=== PATIENT | female | born 1970 | race Caucasian/White ===

== ENCOUNTER 2016-12-28 13:36 | Emergency (ER) | payer OTHER ==
[2016-12-28] MEDS ORDERED: SODIUM CHLORIDE 0.9% 1,000 ML IV ONE (14:34)
--- NOTE | 2016-12-28 14:42 | ED ---
Alcohol HPI - General Chief Complaint: Alcohol Stated Complaint: Alcohol Withdraw Time Seen by Provider: 12/28/16 14:17 Source: patient, RN notes reviewed Mode of arrival: ambulatory Limitations: no limitations - History of Present Illness Initial Comments: Patient is a 46-year-old female presents to the emergency room for evaluation of alcoholism. Patient's sister is present with patient. Patient is an alcoholic. Patient's sister states that patient was at [facility] over the past few weeks. Patient's sister states that patient fell multiple times at [facility] so she was sent to [facility]. Patient's sister states that patient was admitted there for low hemoglobin. Patient's sister states after discharge they went to sent her back to [facility] and they refuse her due to "too much of a health risk". Patient's sister states that she wants patient admitted here for alcohol withdrawal treatment. Patient's sister states that patient did sneak a few beers from them last night and drank them. patient denies abdominal pain, nausea, vomiting, headache, dizziness. - Related Data Home Medications Medication Instructions Recorded Confirmed Azithromycin [Zithromax Z-pack] See Taper PO DAILY 12/28/16 12/28/16 Ferrous Sulfate [Feosol] 325 mg PO DIRECTED 12/28/16 12/28/16 Folic Acid 1 mg PO DAILY 12/28/16 12/28/16 Pantoprazole Sodium [Protonix] 40 mg PO DAILY 12/28/16 12/28/16 chlordiazePOXIDE HCl [Librium] 25 mg PO DIRECTED 12/28/16 12/28/16 predniSONE 10 mg PO DIRECTED 12/28/16 12/28/16 Previous Rx's Medication Instructions Recorded LORazepam [Ativan] 1 mg PO Q6HR PRN 10 Days 12/28/16 Ondansetron Odt [Zofran Odt] 4 mg PO Q8HR PRN #12 tab 12/28/16 Allergies Allergy/AdvReac Type Severity Reaction Status Date / Time No Known Allergies Allergy Verified 12/28/16 14:35 Review of Systems ROS Statement: Those systems with pertinent positive or pertinent negative responses have been documented in the HPI. ROS Other: All systems not noted in ROS Statement are negative. Past Medical History Past Medical History: Thyroid Disorder Additional Past Medical History / Comment(s): ETOH abuse, anemia History of Any Multi-Drug Resistant Organisms: None Reported Past Surgical History: Section, Hernia Repair Additional Past Surgical History / Comment(s): hand Past Psychological History: Depression Smoking Status: Current every day smoker Past Alcohol Use History: Abuse Past Drug Use History: None Reported General Exam - General Exam Comments Initial Comments: sitting in exam room, no distress. Limitations: no limitations General appearance: alert, in no apparent distress Head exam: Present: atraumatic, normocephalic, normal inspection Eye exam: Present: normal appearance ENT exam: Present: normal exam Neck exam: Present: normal inspection Respiratory exam: Present: normal lung sounds bilaterally. Absent: respiratory distress Cardiovascular Exam: Present: regular rate, normal rhythm, normal heart sounds GI/Abdominal exam: Present: soft, normal bowel sounds. Absent: distended, tenderness, guarding, rebound, rigid Extremities exam: Present: normal inspection Back exam: Present: normal inspection Neurological exam: Present: alert, oriented X3, CN II-XII intact, normal gait Psychiatric exam: Present: normal affect, normal mood Skin exam: Present: warm, dry, intact, normal color. Absent: rash Course Vital Signs 12/28/16 12/28/16 13:59 16:50 Temperature 98.1 F 98 F Pulse Rate 98 83 Respiratory 18 15 Rate Blood Pressure 118/79 129/66 O2 Sat by Pulse 100 100 Oximetry Medical Decision Making - Medical Decision Making Patient is a 46-year-old female presents emergency room for alcohol withdrawal treatment. Patient was dismissed from [facility] 222 much of a health risk since she was just admitted at [facility] for low hemoglobin. Labs are drawn. Hemoglobin at 9.8. Other labs showed no concerning findings. Discussed with patient and her sister that we do not admit for alcohol detox. Patient be sent home with [facility] and [facility]. Patient given medical clearance to go back to [facility]. Return parameters discussed. Case discussed with Dr. Berger. - Lab Data Result diagrams: 12/28/16 15:14 12/28/16 15:14 Lab Results 12/28/16 12/28/16 12/28/16 Range/Units 15:14 15:14 15:14 WBC 7.6 (3.8-10.6) k/uL RBC 3.81 (3.80-5.40) m/uL Hgb 9.8 L (11.4-16.0) gm/dL Hct 34.1 (34.0-46.0) % MCV 89.5 (80.0-100.0) fL MCH 25.8 (25.0-35.0) pg MCHC 28.8 L (31.0-37.0) g/dL RDW 20.8 H (11.5-15.5) % Plt Count 319 (150-450) k/uL Neutrophils % (Manual) 87.0 % Lymphocytes % (Manual) 11.0 % Monocytes % (Manual) 2.0 % Neutrophils # (Manual) 6.6 (1.3-7.7) k/uL Lymphocytes # (Manual) 0.8 L (1.0-4.8) k/uL Monocytes # (Manual) 0.2 (0-1.0) k/uL Nucleated RBCs 0 (0-0) /100 WBC Manual Slide Review Performed Polychromasia Present Hypochromasia Marked Poikilocytosis Slight Anisocytosis Moderate Target Cells Present PT 10.1 (9.0-12.0) sec INR 1.0 (<1.1) Sodium 141 (137-145) mmol/L Potassium 4.1 (3.5-5.1) mmol/L Chloride 109 H (98-107) mmol/L Carbon Dioxide 26 (22-30) mmol/L Anion Gap 6 mmol/L BUN 6 L (7-17) mg/dL Creatinine 0.48 L (0.52-1.04) mg/dL Est GFR (MDRD) Af Amer >60 (>60 ml/min/1.73 sqM) Est GFR (MDRD) Non-Af >60 (>60 ml/min/1.73 sqM) Glucose 113 H (74-99) mg/dL Calcium 9.5 (8.4-10.2) mg/dL Magnesium 2.0 (1.6-2.3) mg/dL Total Bilirubin 0.5 (0.2-1.3) mg/dL AST 36 (14-36) U/L ALT 29 (9-52) U/L Alkaline Phosphatase 80 (38-126) U/L Total Protein 7.1 (6.3-8.2) g/dL Albumin 3.2 L (3.5-5.0) g/dL Amylase 54 (30-110) U/L Lipase 146 (23-300) U/L Serum Alcohol <10 mg/dL Disposition Clinical Impression: Alcohol withdrawal Disposition: HOME SELF-CARE Condition: Good Instructions: Alcohol Withdrawal (ED) Additional Instructions: Take medications as needed. Please follow-up with [facility]. Refrain from drinking alcohol. If any new symptom arises or symptoms worsen, return to ER as soon as possible. Prescriptions: LORazepam [Ativan] 1 mg PO Q6HR PRN 10 Days PRN Reason: Alcohol Withdrawal Ondansetron Odt [Zofran Odt] 4 mg PO Q8HR PRN #12 tab PRN Reason: Nausea Referrals: None,Stated [Primary Care Provider] - 1-2 days Time of Disposition: 16:31
[2016-12-28 15:30] LABS: Anisocytosis Moderate; CHCM 29.1; HCT 34.1 % (34.0-46.0); HDW 3.62; HGB 9.8 gm/dL (11.4-16.0); Hypochromasia Marked; MCH 25.8 pg (25.0-35.0); MCHC 28.8 g/dL (31.0-37.0); MCV 89.5 fL (80.0-100.0); Mean Platelet Volume 8.2; Poikilocytosis Slight; RBC 3.81 m/uL (3.80-5.40); RDW 20.8 % (11.5-15.5); WBC 7.6 k/uL (3.8-10.6); WBC (Perox) 7.27
[2016-12-28 15:33] LABS: Prothrombin Time 10.1 sec (9.0-12.0)
[2016-12-28 15:43] LABS: ALT 29 U/L (9-52); AST 36 U/L (14-36); Alcohol <10 mg/dL; Alkaline Phosphatase 80 U/L (38-126); Amylase 54 U/L (30-110); Anion Gap 6 mmol/L; Blood Urea Nitrogen 6 mg/dL (7-17); Calcium 9.5 mg/dL (8.4-10.2); Carbon Dioxide 26 mmol/L (22-30); Chloride 109 mmol/L (98-107); Glucose 113 mg/dL (74-99); Non-African American GFR(MDRD) >60 (>60 ml/min/1.73 sqM); Potassium 4.1 mmol/L (3.5-5.1); Sodium 141 mmol/L (137-145); Total Bilirubin 0.5 mg/dL (0.2-1.3); Total Protein 7.1 g/dL (6.3-8.2)
[2016-12-28 15:58] LABS: Add Differential Manual Differential
[2016-12-28 15:59] LABS: Manual Review Performed
[2016-12-28 16:02] LABS: Nucleated Red Blood Cells 0 /100 WBC (0-0); Polychromasia Present; Target Cells Present; Total Cells Counted 100
[2016-12-28 16:52] VITALS: BP 129/66; PULSE 83; RESP 15; TEMP 98
== END 2016-12-28 16:50 | disposition home or self-care (01) ==
LOC: EC 13:36
DX: F10.230 Alcohol dependence with withdrawal, uncomplicated (principal); D64.9 Anemia, unspecified; F17.200 Nicotine dependence, unspecified, uncomplicated; Y90.0 Blood alcohol level of less than 20 mg/100 ml; Z79.52 Long term (current) use of systemic steroids; Z79.899 Other long term (current) drug therapy
CPT/HCPCS: 36415; 80053; 80320; 82150; 83690; 83735; 85025; 85610; 96360; 99284

== ENCOUNTER → 2019-06-29 | Outpatient (CLI) | payer OTHER ==
--- NOTE | 2019-06-29 10:14 | XR ---
EXAMINATION TYPE: XR cervical spine comp DATE OF EXAM: 06/29/2019 COMPARISON: NONE HISTORY: Pain TECHNIQUE: Four views are submitted. FINDINGS: The odontoid is intact. There are no compression deformities. There is marked sclerosis of the osseo us structures suspicious for metastatic disease. Degenerative disc disease at C2-3 and C3-C4 there is a grade 1 anterolisthesis of C5 relative to C6 and C6 relative to C7. Hypertrophic facet changes are noted. IMPRESSION: 1. Multilevel degenerative disc disease with grade 1 anterolisthesis C6 relative to C7. 2. There is abnormal sclerosis involving the osseous structures correlate for history of malignancy a nd potential metastases. Recommend CT scan.
--- NOTE | 2019-06-29 10:15 | XR ---
EXAMINATION TYPE: XR Hip Bilateral Complete DATE OF EXAM: 06/29/2019 COMPARISON: NONE HISTORY: Pain TECHNIQUE: 2 views of each hip is submitted FINDINGS: There is no evidence of erosive change or acute fracture. There is diffuse abnormal appearance of the osseous structures. Hypertrophic change of the acetabulum is noted. There is a deformity of the righ t inferior pubic ramus suggestive of previous fracture. IMPRESSION: 1. Diffuse abnormal appearance of the osseous structures suggestive of widespread bony metastases. Th ere is a deformity involving the right inferior pubic ramus which could been the basis of a subacute to chronic fracture correlate clinically. CT scan chest abdomen pelvis recommended.
--- NOTE | 2019-06-29 10:16 | XR ---
EXAM TYPE: LUMBAR SPINE X RAY SERIES COMPARISON: NONE HISTORY: Pain TECHNIQUE: 4 views are submitted. FINDINGS: Diffuse abnormal appearance of all visualized osseous structures and a pattern highly suggestive of d iffuse metastasis. Multilevel degenerative disc disease seen and there are superior endplate compress ion fracture of L1 of indeterminate age. Report called to the referring clinician. IMPRESSION: 1. Diffuse abnormal bony appearance highly suggestive of metastasis. 2. At the level of L1 there is an age-indeterminate superior endplate compression fracture.
== END | disposition home or self-care (01) ==
LOC: RADXRMAIN 09:35
PROVIDERS: ATTEND Family Medicine
DX: M50.31 Other cervical disc degeneration, high cervical region (principal); M43.12 Spondylolisthesis, cervical region; M50.80 Other cervical disc disorders, unspecified cervical region; R93.7 Abnormal findings on diagnostic imaging of other parts of musculoskeletal system; M54.5 Low back pain; M25.552 Pain in left hip; M25.551 Pain in right hip
CPT/HCPCS: 72050; 72110; 73521

== ENCOUNTER → 2019-08-09 | Outpatient (CLI) | payer MEDICARE, OTHER ==
--- NOTE | 2019-08-09 10:14 | MM ---
Reason for exam: clinical finding. Baseline mammogram. History: Patient is postmenopausal. Family history of breast cancer in sister at age 60 and breast cancer in maternal cousin at age 50. Physical Findings: Nurse Summary: nodule in the left breast at 5 o'clock (nurse emily). MG Diagnostic Mammo w CAD NOEL Bilateral CC and MLO view(s) were taken. XCCL view(s) were taken of the left breast. The breast tissue is heterogeneously dense. This may lower the sensitivity of mammography. Gross deformity of the right breast with shrunken size and diffuse increased densities. Bilateral papable markers. These results were verbally communicated with the patient and result sheet given to the patient on 08/09/19. ASSESSMENT: Incomplete: need additional imaging evaluation, BI-RAD 0 RECOMMENDATION: Ultrasound of both breasts.
--- NOTE | 2019-08-09 10:20 | USB ---
Reason for exam: additional evaluation requested from abnormal screening. History: Patient is postmenopausal. Family history of breast cancer in sister at age 60 and breast cancer in maternal cousin at age 50. US Breast BILAT Right complete breast ultrasound includes all four quadrants, the retroareolar region and axilla. Finding demonstrates 17 x 10 x 37mm irregular, solid, hypoechoic, vascular lesion at 9 o'clock, biopsy recommended and a 10mm lymph node at the axilla tail BB, biopsy recommended. Left complete breast ultrasound includes all four quadrants, the retroareolar region and axilla. Finding demonstrates a 6mm lymph node at the axilla tail BB, biopsy recommended and a 15 x 12 x 33mm lobular, solid, hypoechoic, vascular lesion at 5 o'clock BB centered in the rib, suggestive of osseous metastases. These results were verbally communicated with the patient and result sheet given to the patient on 08/09/19. ASSESSMENT: Highly suggestive of malignancy, BI-RAD 5 RECOMMENDATION: Surgical consultation and ultrasound core biopsy of both breasts. (3 site biopsy, right 9 o'clock and axilla, left axilla) (postential osseous metastatic disease) Called Dr. Sotelo's office with mammographic findings and has scheduled an appointment for the patient for 08/26/18 at 7:[address] Bishop. Biopsy scheduled for 09/01/18 at 12:20. PRELIMINARY REPORT CALLED AND FAXED TO DR. BISHOP ON 08/09/19.
== END ==
LOC: RADMAMWWP 07:14
PROVIDERS: ATTEND Internal Medicine
DX: N64.4 Mastodynia (principal); N63.10 Unspecified lump in the right breast, unspecified quadrant; N63.20 Unspecified lump in the left breast, unspecified quadrant
CPT/HCPCS: 77066

== ENCOUNTER → 2019-08-26 | Outpatient (CLI) | payer OTHER ==
[2019-08-26 08:08] VITALS: BP 177/100; PULSE 79; RESP 16; TEMP 97.3
--- NOTE | 2019-08-26 08:51 | P.GSHP ---
History of Present Illness H&P Date: 08/26/19 Chief Complaint: mass right breast Leslie is a 48-year-old white female seen in consultation at the request of Dr. Sotelo for a right breast abnormality. She states that several years ago she fell from a palate and had an injury to her right breast. Since that time she is de veloped increasing fullness in the right breast and thought it was related to the injury. A mammogram performed on [id number] revealed gross deformity of the right breast strength in size and diffuse increased densities. No abnormality was described in the left breast. The patient had a ultrasound done bilaterally of the breast and the ultrasound revealed in the right breast a 17 x 37 mm irregular solid lesion at 9:00 for which biopsy was recommended and a 10 mm lymph node at the axilla for which biopsy was recommended. In the left breast she was noted to have a 15 x 33 mm solid lesion at 5:00 and biopsy was recommended of the left breast also. A vascular lesion centered at 5:00 in the left lobe was suggestive of osseous metastasis. The patient complains of pain across her shoulders posteriorly. Patient had lumbar spine x-rays performed this revealed diffuse abnormal bone the changes highly suggestive of metastasis At the level of L1 there is an age indeterminate superior endplate compression fracture Patient had bilateral hip x-rays this revealed diffuse abnormal appearance of the osseous structures suggestive of widespread bony metastases there is a deformity involving the right inferior pubic ramus which could have been the basis of a subacute to chronic fracture Family History: Computed tomography scan chest abdomen and pelvis recommended Cervical spine x-ray reveals multilevel degenerative disc disease. His abnormal sclerosis involving the osseous structures closely for history of malignancy and potential metastasis sister: bilateral breast cancer age 51 niece maternal side: breast cancer age 52 5 brothers: Alcoholics developed liver cancer Hormonal History: menarche: 12 , first born at 25, breast fed: none menopause: 43 BCP: 20 years hormones: none Surgical History: 1. left finger 2. two c-sections 3. tubal 4. hernia, umbilical Medical History: 1. hyper-thyroid/resolved 2. COPD 3. scoloisis 4. anemia 5. ETOH abuse Social History: smoke: 1 1/2 PPD since 14 alcohol: not drinking for 2 years, was in rehab for alcohol abuse drugs: none - Constitutional Constitutional: Denies chills, Denies fever - EENT Eyes: denies blurred vision, denies pain Ears: deny: decreased hearing, tinnitus Ears, nose, mouth and throat: Reports headache - Breasts Breasts: bilateral: as per HPI - Cardiovascular Comment: back pain Cardiovascular: Reports shortness of breath, Denies chest pain - Respiratory Comment: COPD, cough - Gastrointestinal Comment: abdominal distension - Genitourinary (Female) Genitourinary: Denies dysuria, Denies hematuria - Menstruation Menstruation: Reports postmenopausal - Musculoskeletal Comment: arthritis, upper back pain bilateral hip pain Musculoskeletal: Reports low back pain, Reports myalgias - Integumentary Comment: dry skin - Neurological Neurological: Reports tingling - Psychiatric Psychiatric: Reports anxiety, Reports depression - Endocrine Endocrine: Reports fatigue, Reports weight change - Hematologic/Lymphatic Comment: aspirin Past Medical History Past Medical History: Thyroid Disorder Additional Past Medical History / Comment(s): ETOH abuse, anemia History of Any Multi-Drug Resistant Organisms: None Reported Past Surgical History: Section, Hernia Repair Additional Past Surgical History / Comment(s): hand Past Psychological History: Depression Smoking Status: Current every day smoker Past Alcohol Use History: Abuse Past Drug Use History: None Reported Medications and Allergies Home Medications Medication Instructions Recorded Confirmed Type Diclofenac Potassium [Cataflam] 50 mg PO BID 08/26/19 08/26/19 History Vortioxetine Hydrobromide 5 mg PO QAM 08/26/19 08/26/19 History [Trintellix] Allergies Allergy/AdvReac Type Severity Reaction Status Date / Time No Known Allergies Allergy Verified 08/26/19 07:39 Surgical - Exam BMI 18.6 - General cachectic - Eyes Conjunctiva pink, no icterus normal ocular movement - ENT normal pinna, normal nares, no hearing loss, no congestion - Neck Left cervical adenopathy posterior cervical region no masses, trachea midline, no venous distension - Respiratory Decreased breath sounds at bases/rhonchi normal expansion, normal respiratory effort, clear to auscultation - Cardiovascular Rhythm: regular Heart Sounds: normal: S1, S2 - Abdomen Liver not enlarged, spleen not enlarged No organomegaly Abdomen: soft, non tender, no guarding, no rigid, no rebound - Genitourinary Right groin skin changes at the groin crease with some nodularity present - Integumentary over the right chest wall there are skin changes related to the breast disease, 17 cm by 8 cm - Neurologic no disoriented, no combative - Musculoskeletal kyphosis difficulty with ambulation Bilateral ankle swelling Right ankle was swollen the left ankle positive edema +2 right side +1 left side Swelling continues with firmness onto the right calf - Psychiatric oriented to time, oriented to person, oriented to place, speech is normal, memory intact Breast examination: BRA 34C Right breast: The breast is deformed , dense and shrunken, highly suspecious for advanced cancer there is very marked firmness throughout the breast the area of abnormality extends onto the skin and is approximately 17 cm x 8 cm in size The disease is not fixed to the chest wall Right axilla: Positive axillary adenopathy Left breast: Multi-positional exam no dominant masses or nodules of concern Left axilla: Positive axillary adenopathy Results Mammogram and ultrasound report reviewed Assessment and Plan Assessment: Impression: 1. mass/skin changes of the right breast onto chest wall 2. bilateral axillary adenopathy 3. left cervical adenopathy 4. back pain 5. right groin skin thickening/nodularity 6. COPD 7. kyphosis 8. family history of cancer 9. family history of breast cancer 10. anxiety/depression 11. Radiographs of lumbar spine bilateral hips and cervical spine suspicious for metastatic disease/computed tomography scan suggested of chest abdomen and pelvis Plan: 1. Mass/skin changes right breast core spine to mammographic abnormality; right breast axillary core biopsy 2. Radiographic abnormality left axilla corresponding with probable adenopathy/core biopsy recommended 3. Left cervical adenopathy to be followed after results of core biopsies done 4. Computed tomography scan chest abdomen and pelvis to rule out metastatic disease 5. COPD/patient counseled to stop smoking 6. Family history of cancer, genetic counseling discussed 7. Ultrasound of lower extremity rule out DVT today 8. present at tumor board 9. bone scan to rule out metastatic disease The findings on physical examination were discussed with the patient. We have discussed the we are highly suspicious that the area in the right breast represents a malignancy. We've also discussed the fact that the back pain may be related to metastatic disease. The patient has been explained the process of core biopsy of the right breast and bilateral axilla. We have also discussed that the patient would benefit from stopping smoking. Secondary to her family history the option of genetic counseling and testing has also been discussed. Cc: Dr. Sotelo Encounter 60 minutes > 50% of time spent in planning and counselling. Time with Patient: Greater than 30
--- NOTE | 2019-08-26 10:00 | US ---
EXAMINATION TYPE: US venous doppler duplex LE DATE OF EXAM: 08/26/2019 9:29 AM COMPARISON: NONE CLINICAL HISTORY: R60.9 EDEMA. SIDE PERFORMED: Bilateral TECHNIQUE: The lower extremity deep venous system is examined utilizing real time linear array sonog varinder with graded compression, doppler sonography and color-flow sonography. VESSELS IMAGED: External Iliac Vein (EIV) Common Femoral Vein Deep Femoral Vein Greater Saphenous Vein * Femoral Vein Popliteal Vein Small Saphenous Vein * Proximal Calf Veins (* superficial vessels) Bilateral enlarged lymph nodes in groin. Grayscale, color doppler, spectral doppler imaging performe d of the deep veins of the lower extremities. There is normal flow, compressibility, vascular wavefo omid. Right Leg: Negative for DVT Left Leg: Negative for DVT small caliber vessels on left leg, they demonstrate flow and compressibility. Subcutaneous edema is s een bilaterally. IMPRESSION: No sonographic evidence of deep venous thrombosis within either the visualized lower extr emities.
== END | disposition home or self-care (01) ==
LOC: WWCWWP 07:23
PROVIDERS: ATTEND Surgery
DX: R60.9 Edema, unspecified (principal)
CPT/HCPCS: 93970

== ENCOUNTER → 2019-09-01 | Day surgery (SDC) | payer OTHER | LOC: RADUSWWP 11:02 | PROVIDERS: ATTEND Surgery | DX: Z53.9 Procedure and treatment not carried out, unspecified reason (principal) ==

== ENCOUNTER 2019-09-13 14:54 | Inpatient (IN) | payer OTHER ==
[2019-09-13] MEDS ORDERED: methylPREDNISolone SOD SUCCI 125 MG/2 ML VIAL IV STA (15:30)
[2019-09-13] MEDS ORDERED: SODIUM CHLORIDE 0.9% 500 ML 500 ML IV STA (15:30)
[2019-09-13] MEDS ORDERED: IPRATROPIUM 0.5 MG/2.5 ML NEBU INHALATION STA (15:30)
[2019-09-13] MEDS ORDERED: ALBUTEROL NEBULIZED 2.5 MG/3 ML INHALATION STA (15:30)
--- NOTE | 2019-09-13 15:35 | ED ---
General Adult HPI - General Chief complaint: Weakness Stated complaint: Weakness/not eating Time Seen by Provider: 09/13/19 15:17 Source: patient, family, RN notes reviewed, old records reviewed Mode of arrival: wheelchair Limitations: no limitations - History of Present Illness Initial comments: 48-year-old female presenting for evaluation of cough, congestion, dyspnea. She's had increased weakness and fatigue. She has recent diagnosis of breast ca ncer and is scheduled for follow-up with the breast surgeon in the next one week. She is uncertain of the exact diagnosis. She has had cough productive of yellow sputum for the past several weeks with increasing dyspnea. She is a current smoker and smokes approximately one pack daily. She's had weight loss and poor appetite. Denies lower extremity pain or swelling. Denies central chest pain. - Related Data Home Medications Medication Instructions Recorded Confirmed Albuterol Inhaler [Ventolin Hfa 1 - 2 puff INHALATION RT-Q6H PRN 08/26/19 09/01/19 Inhaler] Aspirin [Adult Low Dose Aspirin EC] 81 mg PO DAILY PRN 08/26/19 09/01/19 Diclofenac Potassium [Cataflam] 50 mg PO BID 08/26/19 09/01/19 Vortioxetine Hydrobromide 5 mg PO QAM 08/26/19 09/01/19 [Trintellix] Allergies Allergy/AdvReac Type Severity Reaction Status Date / Time No Known Allergies Allergy Verified 09/01/19 11:23 Review of Systems ROS Statement: Those systems with pertinent positive or pertinent negative responses have been documented in the HPI. ROS Other: All systems not noted in ROS Statement are negative. Past Medical History Past Medical History: Thyroid Disorder Additional Past Medical History / Comment(s): ETOH abuse, anemia History of Any Multi-Drug Resistant Organisms: None Reported Past Surgical History: Section, Hernia Repair Additional Past Surgical History / Comment(s): hand Past Anesthesia/Blood Transfusion Reactions: No Reported Reaction Past Psychological History: Depression Smoking Status: Current every day smoker Past Alcohol Use History: Abuse Past Drug Use History: None Reported - Past Family History Sister(s) Family Medical History: Cancer Additional Family Medical History / Comment(s): bilateral breast cancer age 50 Brother(s) Family Medical History: Cancer Additional Family Medical History / Comment(s): five of eight brothers with liver cancer General Exam Limitations: no limitations General appearance: alert, in no apparent distress, cachectic Head exam: Present: atraumatic, normocephalic Eye exam: Present: normal appearance, PERRL ENT exam: Present: mucous membranes dry Neck exam: Present: normal inspection. Absent: tenderness, meningismus Respiratory exam: Present: respiratory distress, wheezes, rhonchi, decreased breath sounds Cardiovascular Exam: Present: regular rate, normal rhythm GI/Abdominal exam: Present: soft. Absent: distended, tenderness, guarding Neurological exam: Present: alert, oriented X3, CN II-XII intact. Absent: motor sensory deficit Skin exam: Present: warm, dry, other (Right breast, there is skin changes over the nipple and areole as well as surrounding tissue.) Course Vital Signs 09/13/19 09/13/19 09/13/19 15:05 15:51 16:06 Temperature 97.7 F Pulse Rate 99 88 88 Respiratory 18 Rate Blood Pressure 89/59 O2 Sat by Pulse 92 L Oximetry 09/13/19 16:15 Temperature Pulse Rate 96 Respiratory Rate Blood Pressure O2 Sat by Pulse Oximetry EKG Findings - EKG Comments: EKG Findings:: EKG: Normal sinus rhythm, rate of 92, MT interval 1:30, QRS duration 94, QTC 410, no ST segment elevation T-wave flattening and ST segment depression in V6. Medical Decision Making - Medical Decision Making 48-year-old female presenting for evaluation of cough, dyspnea, skin changes to the right breast. Patient is cachectic and very ill appearing. Chest x-ray showing COPD with concern for diffuse metastases and small bilateral effusions. No focal pneumonia. Laboratory studies reveal hemoglobin of 4.5, this is repeated, and the patient is typed for transfusion of 3 units of packed RBCs. She is in acute renal failure with the creatinine of 6.8. She's given 2 L normal saline bolus and started on continuous normal saline infusion, this is likely prerenal as the patient has not been eating or drinking well in the past several days to weeks. Case is discussed with the admitting physician Dr. Montenegro - Lab Data Result diagrams: 09/13/19 16:39 09/13/19 16:39 Lab Results 09/13/19 09/13/19 09/13/19 Range/Units 15:46 15:46 16:39 WBC 4.4 (3.8-10.6) k/uL RBC 1.59 L (3.80-5.40) m/uL Hgb 4.5 L* D (11.4-16.0) gm/dL Hct 14.4 L* (34.0-46.0) % MCV 90.6 (80.0-100.0) fL MCH 28.2 (25.0-35.0) pg MCHC 31.1 (31.0-37.0) g/dL RDW 18.7 H (11.5-15.5) % Plt Count 96 L D (150-450) k/uL Neutrophils % 56 % Lymphocytes % 34 % Monocytes % 5 % Eosinophils % 1 % Basophils % 1 % Neutrophils # 2.5 (1.3-7.7) k/uL Lymphocytes # 1.5 (1.0-4.8) k/uL Monocytes # 0.2 (0-1.0) k/uL Eosinophils # 0.1 (0-0.7) k/uL Basophils # 0.0 (0-0.2) k/uL Hypochromasia Slight Poikilocytosis Slight Anisocytosis Slight PT (9.0-12.0) sec INR (<1.2) APTT (22.0-30.0) sec Sodium (137-145) mmol/L Potassium (3.5-5.1) mmol/L Chloride (98-107) mmol/L Carbon Dioxide (22-30) mmol/L Anion Gap mmol/L BUN (7-17) mg/dL Creatinine (0.52-1.04) mg/dL Est GFR (CKD-EPI)AfAm (>60 ml/min/1.73 sqM) Est GFR (CKD-EPI)NonAf (>60 ml/min/1.73 sqM) Glucose (74-99) mg/dL Plasma Lactic Acid Colin 1.0 (0.7-2.0) mmol/L Calcium (8.4-10.2) mg/dL Total Bilirubin (0.2-1.3) mg/dL AST (14-36) U/L ALT (4-34) U/L Alkaline Phosphatase (38-126) U/L Total Protein (6.3-8.2) g/dL Albumin (3.5-5.0) g/dL Influenza Type A RNA Not Detected (Not Detectd) Influenza Type B (PCR) Not Detected (Not Detectd) 09/13/19 09/13/19 Range/Units 16:39 16:39 WBC (3.8-10.6) k/uL RBC (3.80-5.40) m/uL Hgb (11.4-16.0) gm/dL Hct (34.0-46.0) % MCV (80.0-100.0) fL MCH (25.0-35.0) pg MCHC (31.0-37.0) g/dL RDW (11.5-15.5) % Plt Count (150-450) k/uL Neutrophils % % Lymphocytes % % Monocytes % % Eosinophils % % Basophils % % Neutrophils # (1.3-7.7) k/uL Lymphocytes # (1.0-4.8) k/uL Monocytes # (0-1.0) k/uL Eosinophils # (0-0.7) k/uL Basophils # (0-0.2) k/uL Hypochromasia Poikilocytosis Anisocytosis PT 10.0 (9.0-12.0) sec INR 1.0 (<1.2) APTT 18.1 L (22.0-30.0) sec Sodium 133 L (137-145) mmol/L Potassium 4.4 (3.5-5.1) mmol/L Chloride 98 (98-107) mmol/L Carbon Dioxide 16 L (22-30) mmol/L Anion Gap 19 mmol/L BUN 88 H (7-17) mg/dL Creatinine 6.88 H (0.52-1.04) mg/dL Est GFR (CKD-EPI)AfAm 7 (>60 ml/min/1.73 sqM) Est GFR (CKD-EPI)NonAf 6 (>60 ml/min/1.73 sqM) Glucose 94 (74-99) mg/dL Plasma Lactic Acid Colin (0.7-2.0) mmol/L Calcium 9.8 (8.4-10.2) mg/dL Total Bilirubin 0.8 (0.2-1.3) mg/dL AST 32 (14-36) U/L ALT 16 (4-34) U/L Alkaline Phosphatase 80 (38-126) U/L Total Protein 5.7 L (6.3-8.2) g/dL Albumin 3.2 L (3.5-5.0) g/dL Influenza Type A RNA (Not Detectd) Influenza Type B (PCR) (Not Detectd) Critical Care Time Critical Care Time: Yes Total Critical Care Time: 35 Disposition Clinical Impression: Dehydration, Acute renal failure, Anemia Disposition: ADMITTED IP TO THIS [facility] Condition: Serious Is patient prescribed a controlled substance at d/c from ED?: No Referrals: Antonieta Sotelo MD [Primary Care Provider] - 1-2 days Decision to Admit Reason: Admit from EC Decision Date: 09/13/19 Decision Time: 17:28
--- NOTE | 2019-09-13 16:33 | XR ---
EXAMINATION TYPE: XR chest 2V DATE OF EXAM: 09/13/2019 COMPARISON: NONE HISTORY: Dyspnea. TECHNIQUE: Frontal and lateral views of the chest are obtained. FINDINGS: There is small to moderate size left greater than right pleural effusions. 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 The cardiac silhouette size is upper limits of normal. Ecta tic Prominence of the aortic knob noted. Osseous structures are mottled diffusely involving visualize d portion of spine and both shoulders. IMPRESSION: Probable diffuse osseous metastatic disease. Small to moderate size left greater than ri ght pleural effusions.
[2019-09-13 17:02] LABS: Albumin 3.2 g/dL (3.5-5.0); Calcium 9.8 mg/dL (8.4-10.2); Potassium 4.4 mmol/L (3.5-5.1); Total Bilirubin 0.8 mg/dL (0.2-1.3); Total Protein 5.7 g/dL (6.3-8.2)
[2019-09-13 17:12] LABS: Anisocytosis Slight; Basophils % (A) 1 %; Eosinophils # (A) 0.1 k/uL (0-0.7); Eosinophils % (A) 1 %; Hypochromasia Slight; Lymphocytes # (A) 1.5 k/uL (1.0-4.8); Lymphocytes % (A) 34 %; MCH 28.2 pg (25.0-35.0); MCHC 31.1 g/dL (31.0-37.0); MCV 90.6 fL (80.0-100.0); Mean Platelet Volume 7.5; Monocytes # (A) 0.2 k/uL (0-1.0); Monocytes % (A) 5 %; Neutrophils # (A) 2.5 k/uL (1.3-7.7); Neutrophils % (A) 56 %; Poikilocytosis Slight; RBC 1.59 m/uL (3.80-5.40); RDW 18.7 % (11.5-15.5); WBC 4.4 k/uL (3.8-10.6)
[2019-09-13 17:14] LABS: Platelet Count 96 k/uL (150-450)
[2019-09-13 17:20] LABS: Partial Thromboplastin Time 18.1 sec (22.0-30.0)
[2019-09-13] MEDS ORDERED: NALOXONE 0.4 MG/ML 1 ML VIAL IV PRN (17:24)
[2019-09-13] MEDS ORDERED: SODIUM CHLORIDE 0.9% 1,000 ML IV ONE (17:24)
[2019-09-13] MEDS ORDERED: PANTOPRAZOLE 40 MG/10 ML VIAL IVP STA (17:33)
[2019-09-13] MEDS: SODIUM CHLORIDE 0.9% 1,000 ML IV SCH ×2 (20:10→22:45)
[2019-09-13] MEDS ORDERED: IOPAMIDOL CONTRAST (ORAL USE) VIAL PO PRN (20:29)
[2019-09-13] MEDS ORDERED: IPRATROPIUM-ALBUTEROL 3 ML NEB INHALATION PRN (20:33)
[2019-09-13 20:38] LABS: T4, Free (Free Thyroxine) 0.84 ng/dL (0.78-2.19)
--- NOTE | 2019-09-13 22:07 | CT ---
EXAMINATION TYPE: CT brain wo con DATE OF EXAM: 09/13/2019 COMPARISON: HISTORY: Breast CA, weakness CT DLP: 1099.4 mGycm Automated exposure control for dose reduction was used. Helical imaging through the brain using depar tmental protocol FINDINGS: Within the internal capsule on the right anteriorly and there is focal air low attenuation may repres ent lacunar infarct, subacute ischemia, white matter low-attenuation is scattered somewhat in the per iventricular locations. There is no hemorrhage or hydrocephalus. Orbits show symmetric appearance. Ca lvarium is intact. Paranasal sinuses and mastoid air cells as visualized are normal with exception of some mild inflammatory change left maxillary sinus. Extensive scattered lytic lucency is present within the base of the skull IMPRESSION: BONY METASTATIC DISEASE. NONSPECIFIC WHITE MATTER DEMYELINATION MAY BE DUE TO CHRONIC SMALL VESSEL IS CHEMIC CHANGE.
--- NOTE | 2019-09-13 22:17 | CT ---
EXAMINATION TYPE: CT ChestAbdPelvis wo con DATE OF EXAM: 09/13/2019 COMPARISON: HISTORY: Breast CA, weakness CT DLP: 655.1 mGycm. Automated Exposure Control for Dose Reduction was Utilized. TECHNIQUE: CT scan of the thorax, abdomen and pelvis is performed without IV contrast. Patient received oral con trast. FINDINGS: Lack of contrast may compromise sensitivity LUNGS: The lungs are remarkable for emphysematous change, there are bibasilar effusions left greater than right The tracheobronchial tree is patent. MEDIASTINUM: There are no greater than 1 cm hilar or mediastinal lymph nodes. No pericardial effusi on is seen. OTHER: There are changes of diffuse anasarca. LIVER/GB: No significant abnormality is appreciated. PANCREAS: No significant abnormality is seen. SPLEEN: No significant abnormality is seen. ADRENALS: No significant abnormality is seen. KIDNEYS: Bilateral hydronephrosis is present. BOWEL: Loops of small bowel show some wall thickening which is indeterminate. GENITAL ORGANS: No gross abnormality seen. LYMPH NODES: No greater than 1cm abdominal or pelvic lymph nodes are appreciated. 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 Suspect bilateral hydronephrosis. Pleural effusions. A dditional findings above.
[2019-09-13 22:38] LABS: Glucose,Whole Blood 185 mg/dL (75-99)
[2019-09-13 23:27] LABS: HCT 14.4 % (34.0-46.0); HGB 4.5 gm/dL (11.4-16.0)
[2019-09-14 00:24] LABS: Appearance,Urine Cloudy (Clear); Bacteria,Urine Occasional /hpf; Bilirubin,Urine Negative (Negative); Blood,Urine Moderate (Negative); Budding Yeast,Urine Moderate /hpf; Color,Urine Yellow; Glucose,Urine (UA) Negative (Negative); Hyaline Casts,Urine 7 /lpf (0-2); Ketones,Urine 1+ (Negative); Leukocyte Esterase,Urine Large (Negative); Mucus,Urine Rare /hpf; Nitrite,Urine Negative (Negative); Protein,Urine 1+ (Negative); RBC,Urine 141 /hpf (0-5); Squamous Epithelial Cell,Urine 2 /hpf (0-4); Urobilinogen,Urine <2.0 mg/dL (<2.0); WBC,Urine >182 /hpf (0-5)
[2019-09-14] MEDS: HEPARIN SODIUM,PORCINE 5,000 UNIT/ML 1 ML VIAL SQ SCH ×3 (00:48→20:28)
[2019-09-14] MEDS: NICOTINE 14MG/24HR PATCH TRANSDERM SCH ×2 (00:50→09:54)
--- NOTE | 2019-09-14 01:05 | HP ---
HISTORY AND PHYSICAL DATE OF SERVICE: 09/13/2019. CHIEF COMPLAINT: Generalized weakness, cough and shortness of breath. HISTORY OF PRESENT ILLNESS: This 48-year-old woman with a past medical history of multiple medical problems such as history of EtOH abuse, anemia, history of hernia repair, history of depression, history of nicotine dependence, being followed by Dr. Sotelo in the outpatient setting was noted to have right breast lesion a few weeks ago and the patient was evaluated in the outpatient setting. The patient apparently had right breast mass lesion in the ultrasound and the tumor board presentation has been done and recommended a bone scan at this time. Currently the patient is complaining of generalized weakness and tiredness. The patient was unable to get up and patient also had significant shortness of breath and cough and sputum and because of multiple medical problems, the patient came to [facility] and and was admitted for further evaluation and treatment. Inflammatory breast cancer has been suspected on the right side. There is no history of fever, rigors or chills. No history of headache, loss of consciousness, seizures at this time. On admission, hemoglobin found to be 4.5 which could be multifactorial because the patient is not eating well. An obvious source of GI bleeding is unknown at this time. Platelets are 96. Patient also had a creatinine 6.8, indicating acute renal failure, which could be also be multifactorial. The patient admitted for further evaluation and treatment. The patient being admitted to ICU with consultation to Dr. Sanz. Multiple consultations including surgical and as well as nephrology consultation also been sought. Hematology/Oncology consultation has been sought. There is no history of fever, rigors or chills. PAST MEDICAL HISTORY: History of hypothyroidism, history of EtOH abuse, history of section, history of hernia repair, history of depression. MEDICATIONS: Home medications are: 1. Trintellix 5 mg p.o. q.a.m. 2. Diclofenac 50 mg p.o. b.i.d. 3. Aspirin 81 mg daily p.r.n. 4. Ventolin HFA 1 puff q.6 p.r.n. ALLERGIES: None. FAMILY HISTORY: History of bilateral breast cancer at age of 48. SOCIAL HISTORY: 1. History of smoking, continued ongoing. 2. History of EtOH per chart. REVIEW OF SYSTEMS: ENT: No diminished vision. No diminished hearing. CARDIOVASCULAR as mentioned earlier. RESPIRATORY: As mentioned earlier. GI no nausea or vomiting. Otherwise mentioned earlier. no dysuria or hematuria. CENTRAL NERVOUS SYSTEM: As mentioned earlier. Patient extremely weak and emaciated. BMI is only 18.1. Otherwise nervous system mentioned earlier. HEMATOLOGY/ONCOLOGY as mentioned earlier. ENDOCRINE: Mentioned earlier. CONSTITUTIONAL: As mentioned earlier. DERMATOLOGY: Negative. RHEUMATOLOGY negative. PSYCHIATRY as mentioned earlier. PHYSICAL EXAM: Patient is alert, oriented x3. Pulse is 90, blood pressure is 145/81, respiration 18, temperature 98 degrees, pulse ox 99% on room air. HEENT: Conjunctivae normal. Oral mucosa moist. NECK is no jugular venous distention. No carotid bruit. Some lymph node enlargement Cardiovascular system: S1, S2 muffled. No S3, no S4. RESPIRATORY: Breath sounds diminished in the bases. Bilateral scattered rhonchi and crackles present. Expiratory wheezing also present. ABDOMEN: Soft, scaphoid. No mass palpable. LEGS no edema. No swelling. Diffusely weak and emaciated. NERVOUS SYSTEM: Higher functions as mentioned earlier. Moves all 4 limbs. Diffuse weak and emaciation present. LYMPHATICS: Lymph node present in the axilla present otherwise. SKIN: No ulcer. No rash. No bleeding. JOINTS: No active deforming arthropathy. Right breast is extensive hard indurated area on the right breast with some deformities, indicating possibly breast malignancy. ASSESSMENT: 1. Right breast cancer with possible mets. 2. Anemia possibly multifactorial nutrition and possibly secondary to malignancy, severe. No evidence of gastrointestinal bleed at this time. 3. Renal failure possible acute renal failure, prerenal acute renal failure and acute tubular necrosis multifactorial. 4. History of ETOH abuse. 5. History of hypothyroidism. 6. History of hernia repair. 7. History of depression. 8. History of nicotine dependence. 9. History of section. 10.Possible chronic obstructive pulmonary disease. 11.Hyponatremia. 12.Anemia. RECOMMENDATIONS AND DISCUSSION: This 48-year-old woman who presented with multiple medical issues, at this time, I recommend to continue the current medications, management and symptomatic treatment. I would institute IV hydrations and monitor creatinine closely. Nephrology consultation for renal failure, most likely due to prerenal acute tubular necrosis. Otherwise malignancy associated syndromes also to be considered. For the COPD, I recommend bronchodilators and a course of antibiotics empirically. Otherwise, I would also recommend consultation with surgery. A bone scan will be ordered. I would also recommend a CT scan of the head as well as chest, abdomen and pelvis. Contrast cannot be used because of the elevated concerns elevated creatinine. Dr. Sanz will be consulted for ICU management. Prognosis guarded because of multiple complex medical issues. Further recommendations to follow. A copy of this dictation being forwarded to Dr. Sotelo who is the primary physician. Discussed with the patient. MMODL / IJN: [id number] /
[2019-09-14 06:15] LABS: Albumin 3.1 g/dL (3.5-5.0); Calcium 9.5 mg/dL (8.4-10.2); Magnesium 2.2 mg/dL (1.6-2.3); Phosphorus 8.4 mg/dL (2.5-4.5); Total Bilirubin 1.2 mg/dL (0.2-1.3)
[2019-09-14 06:19] LABS: Anisocytosis Slight; Basophils % (A) 1 %; Eosinophils % (A) 1 %; HCT 26.4 % (34.0-46.0); Hypochromasia Slight; Lymphocytes # (A) 0.8 k/uL (1.0-4.8); Lymphocytes % (A) 13 %; MCH 28.7 pg (25.0-35.0); MCHC 32.2 g/dL (31.0-37.0); Monocytes # (A) 0.2 k/uL (0-1.0); Monocytes % (A) 2 %; Neutrophils # (A) 5.4 k/uL (1.3-7.7); Neutrophils % (A) 83 %; Poikilocytosis Slight; RBC 2.96 m/uL (3.80-5.40); RDW 16.5 % (11.5-15.5); WBC 6.5 k/uL (3.8-10.6)
[2019-09-14 06:22] LABS: HGB 8.5 gm/dL (11.4-16.0)
[2019-09-14 06:50] LABS: Polychromasia Present
[2019-09-14 06:51] LABS: Platelet Count 77 k/uL (150-450)
[2019-09-14] MEDS: SODIUM CHLORIDE 0.9% 1,000 ML IV SCH ×2 (06:55→15:20)
[2019-09-14] MEDS: IPRATROPIUM-ALBUTEROL 3 ML NEB INHALATION SCH ×3 (09:16→20:48)
--- NOTE | 2019-09-14 09:24 | XR ---
EXAMINATION TYPE: XR chest 1V DATE OF EXAM: 09/14/2019 COMPARISON: 09/13/2019 HISTORY: COPD and dyspnea TECHNIQUE: Single frontal view of the chest is obtained. FINDINGS: Cardiomediastinal silhouette is stable. Trace left pleural effusion and left basilar airsp lindsey disease are similar to the prior obscuring the retrocardiac airspace. Faint patchy right basilar airspace disease is also now seen. Lung apices are well aerated with very hyperinflation of underlyin g COPD. Diffuse mottled appearance of the bone marrow. IMPRESSION: 1. New right basilar patchy opacity, likely atelectasis and similar trace left pleural effusion with left basilar airspace disease, also likely atelectasis. 2. Mottled appearance of the osseous structures compatible with diffuse osseous metastasis.
--- NOTE | 2019-09-14 09:34 | US ---
EXAMINATION TYPE: US kidneys/renal and bladder DATE OF EXAM: 09/14/2019 COMPARISON: CT of 09/13/2019 CLINICAL HISTORY: Bilateral hydronephrosis follow up . History of hydronephrosis EXAM MEASUREMENTS: Right Kidney: 9.9 x 4.0 x 3.3 cm Left Kidney: 11.7 x 4.9 x 4.9 cm Right Kidney: moderate hydronephrosis Left Kidney: moderate hydronephrosis Bladder: Dillard Catheter No nephrolithiasis is seen. No masses are identified. The urinary bladder is nondistended due to pl acement of a Dillard catheter. IMPRESSION: Moderate bilateral hydronephrosis as seen on the CT of 09/13/2019. No nephrolithiasis.
[2019-09-14] MEDS: HYDROcodone/APAP 5-325MG 1 EACH TAB PO PRN (09:54)
[2019-09-14] MEDS: PANTOPRAZOLE 40 MG TABLET PO SCH (09:55)
[2019-09-14 10:57] VITALS: BMI 19.8
[2019-09-14] MEDS: DEXTROSE 5% IN WATER 1,000 ML with SODIUM BICARB (1 MEQ/ML) 150 ML IV SCH (11:15)
--- NOTE | 2019-09-14 14:36 | NM ---
EXAMINATION TYPE: NM bone scan whole body DATE OF EXAM: 09/14/2019 COMPARISON: CT of the chest, abdomen, and pelvis dated 09/13/2019 HISTORY: Breast cancer with known metastasis Delayed whole-body scanning was performed following the injection of 26.1 mCi Tc 99m MDP. Images acq uired 4.5 hours post injection. FINDINGS: Findings indicative of a SuperScan with nonvisualization of the urinary bladder and markedly diminish ed visualization of the renal shadows. When correlated with the CT dated 09/13/2019 there is diffuse s keletal osseous metastasis. More focal uptake is seen of the bilateral sacroiliac joints, femoral hea ds, and right inferior pubic ramus as well as of the sternum, humeral heads, and knees. IMPRESSION: SuperScan compatible with diffuse osseous metastasis throughout the axial and appendicula r skeleton. More focal uptake is seen within the sacroiliac joints, femoral heads, right inferior pub ic ramus, sternum, humeral heads, and kidneys. Correlate for pathologic fractures.
[2019-09-14] MEDS: DEXAMETHASONE SOD PHOSPHATE 4 MG/ML 1 ML VIAL IV SCH ×2 (15:20→19:37)
--- NOTE | 2019-09-14 15:51 | P.GSCN ---
History of Present Illness Consult date: 09/14/19 Reason for Consult: Bilateral hydronephrosis History of present illness: Ms Gant is a 49-year-old female presenting for evaluation of weakness and dyspnea. She's been also complaining of poor by mouth intake. She has recent diagnosis of breast cancer. on Presentation it was noted that her creat is elevated at 6.88 from baseline of 1.2. On presentation she underwent a CT, that showed bilateral hydronephrosis, without obvious point of obstruction. Denies any flank pain, kidney stones, or any previous surgeries denies any voiding symptoms at baseline denies any history of recurrent UTIs or gross hematuria. Of note the CT also demonstrated widespread metastatic disease, most likely secondary to her breast cancer. Additionally her hemoglobin is 4.5 on presentation. Patient has a Dillard catheter in place, with adequate urine output Review of Systems - Constitutional Denies chills, Denies fever - EENT Ears, nose, mouth and throat: Denies dysphagia, Denies headache - Cardiovascular Reports shortness of breath, Denies chest pain, Denies leg edema - Respiratory Reports cough, Reports cough with sputum, Reports dyspnea - Gastrointestinal Denies abdominal pain, Denies nausea, Denies vomiting - Genitourinary Genitourinary: Denies dysuria, Denies flank pain, Denies hematuria Past Medical History Past Medical History: Thyroid Disorder Additional Past Medical History / Comment(s): ETOH abuse, anemia, hernia repair, depression, smoker 1.5ppd, kyphosis, breast cancer History of Any Multi-Drug Resistant Organisms: None Reported Past Surgical History: Section, Hernia Repair Additional Past Surgical History / Comment(s): hand Past Anesthesia/Blood Transfusion Reactions: No Reported Reaction Past Psychological History: Depression Smoking Status: Current every day smoker Past Alcohol Use History: Abuse Additional Past Alcohol Use History / Comment(s): started smoking at age 14; smokes 1.5 ppd Past Drug Use History: None Reported - Past Family History Sister(s) Family Medical History: Cancer Additional Family Medical History / Comment(s): bilateral breast cancer age 50 Brother(s) Family Medical History: Cancer Additional Family Medical History / Comment(s): five of eight brothers with liver cancer Medications and Allergies Home Medications Medication Instructions Recorded Confirmed Type Albuterol Inhaler [Ventolin Hfa 1 - 2 puff INHALATION RT-Q6H PRN 08/26/19 09/13/19 History Inhaler] Aspirin [Adult Low Dose Aspirin EC] 81 mg PO DAILY PRN 08/26/19 09/13/19 History Diclofenac Potassium [Cataflam] 50 mg PO BID 08/26/19 09/13/19 History Vortioxetine Hydrobromide 5 mg PO QAM 08/26/19 09/13/19 History [Trintellix] Allergies Allergy/AdvReac Type Severity Reaction Status Date / Time No Known Allergies Allergy Verified 09/13/19 17:44 Surgical - Exam Vital Signs Temp Pulse Resp BP Pulse Ox 97.7 F 99 18 89/59 92 L 09/13/19 15:05 09/13/19 15:05 09/13/19 15:05 09/13/19 15:05 09/13/19 15:05 - General no distress, no pain - Eyes normal ocular movement, no loss of movement - ENT normal mucosa, no hearing loss - Respiratory normal respiratory effort - Abdomen Abdomen: soft, non tender, no rebound, no distended - Psychiatric oriented to time, oriented to person, oriented to place Results - Labs 09/14/19 05:13 09/14/19 05:13 Abnormal Lab Results - Last 24 Hours (Table) 09/13/19 09/13/19 09/13/19 Range/Units 16:39 16:39 16:39 RBC 1.59 L (3.80-5.40) m/uL Hgb 4.5 L* D (11.4-16.0) gm/dL Hct 14.4 L* (34.0-46.0) % RDW 18.7 H (11.5-15.5) % Plt Count 96 L D (150-450) k/uL Lymphocytes # (1.0-4.8) k/uL APTT 18.1 L (22.0-30.0) sec Sodium 133 L (137-145) mmol/L Carbon Dioxide 16 L (22-30) mmol/L BUN 88 H (7-17) mg/dL Creatinine 6.88 H (0.52-1.04) mg/dL Glucose (74-99) mg/dL POC Glucose (mg/dL) (75-99) mg/dL Phosphorus (2.5-4.5) mg/dL AST (14-36) U/L Total Protein 5.7 L (6.3-8.2) g/dL Albumin 3.2 L (3.5-5.0) g/dL TSH (0.465-4.680) mIU/L Urine Appearance (Clear) Urine Protein (Negative) Urine Ketones (Negative) Urine Blood (Negative) Ur Leukocyte Esterase (Negative) Urine RBC (0-5) /hpf Urine WBC (0-5) /hpf Urine WBC Clumps (None) /hpf Urine Bacteria (None) /hpf Hyaline Casts (0-2) /lpf Urine Mucus (None) /hpf Urine Yeast (Budding) (None) /hpf Crossmatch 09/13/19 09/13/19 09/13/19 Range/Units 16:39 16:39 22:26 RBC (3.80-5.40) m/uL Hgb (11.4-16.0) gm/dL Hct (34.0-46.0) % RDW (11.5-15.5) % Plt Count (150-450) k/uL Lymphocytes # (1.0-4.8) k/uL APTT (22.0-30.0) sec Sodium (137-145) mmol/L Carbon Dioxide (22-30) mmol/L BUN (7-17) mg/dL Creatinine (0.52-1.04) mg/dL Glucose (74-99) mg/dL POC Glucose (mg/dL) 185 H (75-99) mg/dL Phosphorus (2.5-4.5) mg/dL AST (14-36) U/L Total Protein (6.3-8.2) g/dL Albumin (3.5-5.0) g/dL TSH 34.500 H (0.465-4.680) mIU/L Urine Appearance (Clear) Urine Protein (Negative) Urine Ketones (Negative) Urine Blood (Negative) Ur Leukocyte Esterase (Negative) Urine RBC (0-5) /hpf Urine WBC (0-5) /hpf Urine WBC Clumps (None) /hpf Urine Bacteria (None) /hpf Hyaline Casts (0-2) /lpf Urine Mucus (None) /hpf Urine Yeast (Budding) (None) /hpf Crossmatch See Detail 09/13/19 09/14/19 09/14/19 Range/Units 22:45 05:13 05:13 RBC 2.96 L (3.80-5.40) m/uL Hgb 8.5 L D (11.4-16.0) gm/dL Hct 26.4 L (34.0-46.0) % RDW 16.5 H (11.5-15.5) % Plt Count 77 L (150-450) k/uL Lymphocytes # 0.8 L (1.0-4.8) k/uL APTT (22.0-30.0) sec Sodium 130 L (137-145) mmol/L Carbon Dioxide 12 L (22-30) mmol/L BUN 83 H (7-17) mg/dL Creatinine 6.20 H (0.52-1.04) mg/dL Glucose 160 H (74-99) mg/dL POC Glucose (mg/dL) (75-99) mg/dL Phosphorus 8.4 H (2.5-4.5) mg/dL AST 38 H (14-36) U/L Total Protein 6.0 L (6.3-8.2) g/dL Albumin 3.1 L (3.5-5.0) g/dL TSH (0.465-4.680) mIU/L Urine Appearance Cloudy H (Clear) Urine Protein 1+ H (Negative) Urine Ketones 1+ H (Negative) Urine Blood Moderate H (Negative) Ur Leukocyte Esterase Large H (Negative) Urine RBC 141 H (0-5) /hpf Urine WBC >182 H (0-5) /hpf Urine WBC Clumps Many H (None) /hpf Urine Bacteria Occasional H (None) /hpf Hyaline Casts 7 H (0-2) /lpf Urine Mucus Rare H (None) /hpf Urine Yeast (Budding) Moderate H (None) /hpf Crossmatch Microbiology - Last 24 Hours (Table) 09/13/19 22:45 Urine Culture - Preliminary Urine,Voided Diabetes panel 09/13/19 09/14/19 Range/Units 16:39 05:13 Sodium 133 L 130 L (137-145) mmol/L Potassium 4.4 5.0 (3.5-5.1) mmol/L Chloride 98 102 (98-107) mmol/L Carbon Dioxide 16 L 12 L (22-30) mmol/L BUN 88 H 83 H (7-17) mg/dL Creatinine 6.88 H 6.20 H (0.52-1.04) mg/dL Glucose 94 160 H (74-99) mg/dL Calcium 9.8 9.5 (8.4-10.2) mg/dL AST 32 38 H (14-36) U/L ALT 16 18 (4-34) U/L Alkaline Phosphatase 80 74 (38-126) U/L Total Protein 5.7 L 6.0 L (6.3-8.2) g/dL Albumin 3.2 L 3.1 L (3.5-5.0) g/dL Thyroid panel 09/13/19 Range/Units 16:39 TSH 34.500 H (0.465-4.680) mIU/L Calcium panel 09/13/19 09/14/19 Range/Units 16:39 05:13 Calcium 9.8 9.5 (8.4-10.2) mg/dL Phosphorus 8.4 H (2.5-4.5) mg/dL Albumin 3.2 L 3.1 L (3.5-5.0) g/dL Pituitary panel 09/13/19 09/13/19 09/14/19 Range/Units 16:39 16:39 05:13 Sodium 133 L 130 L (137-145) mmol/L Potassium 4.4 5.0 (3.5-5.1) mmol/L Chloride 98 102 (98-107) mmol/L Carbon Dioxide 16 L 12 L (22-30) mmol/L BUN 88 H 83 H (7-17) mg/dL Creatinine 6.88 H 6.20 H (0.52-1.04) mg/dL Glucose 94 160 H (74-99) mg/dL Calcium 9.8 9.5 (8.4-10.2) mg/dL TSH 34.500 H (0.465-4.680) mIU/L Adrenal panel 09/13/19 09/14/19 Range/Units 16:39 05:13 Sodium 133 L 130 L (137-145) mmol/L Potassium 4.4 5.0 (3.5-5.1) mmol/L Chloride 98 102 (98-107) mmol/L Carbon Dioxide 16 L 12 L (22-30) mmol/L BUN 88 H 83 H (7-17) mg/dL Creatinine 6.88 H 6.20 H (0.52-1.04) mg/dL Glucose 94 160 H (74-99) mg/dL Calcium 9.8 9.5 (8.4-10.2) mg/dL Total Bilirubin 0.8 1.2 (0.2-1.3) mg/dL AST 32 38 H (14-36) U/L ALT 16 18 (4-34) U/L Alkaline Phosphatase 80 74 (38-126) U/L Total Protein 5.7 L 6.0 L (6.3-8.2) g/dL Albumin 3.2 L 3.1 L (3.5-5.0) g/dL Assessment and Plan Assessment: 49-year-old female admitted to the hospital with weakness, poor by mouth intake, anemia with hemoglobin of 4.5 and LEO. Her creatinine is elevated at 6.88 from a baseline of 1.2. She underwent a CT that demonstrated bilateral hydronephrosis, without an obvious point of obstruction. Since admission she's been having adequate urine output. -Patient LEO is most likely multifactorial, at this point we will continue to trend her creatinine and urine output. If her creat does not improve despite IV fluids and a Dillard catheter, then we'll consider bilateral ureteral stent placements
--- NOTE | 2019-09-14 16:50 | P.CONS ---
History of Present Illness - Reason for Consult Consult date: 09/14/19 Lymphadenopathy bilateral breast cancer Requesting physician: Bennie Zamorano - Chief Complaint Dyspnea, productive cough - History of Present Illness Ms. Gant is a very pleasant female who presents to the hospital with c/o of progressive ABDULLAHI and cough, she denied fevers, chills, CXR showed L>R pleural effusions with emphysema and incidentally bone lesions. CT CAP done showed extensive bone mets, bilateral hydronephrosis. Labs revealed severe anemia, acute renal failure, normal calcium. On exam pt has gross right breast deformity and bilateral axillary adenopathy. Pt states she fell and injured her right breast 1-2 years ago causing non-specific injury and that is what she though was wrong. She remembered having mammogram and US last month but due to high stresses ( recently , she lost her home) and lack of transportation she had not followed up yet. Positive for unintentional weight loss last few months, appetite is poor, denied fevers, sweats, chest pain, cough is occasionally productive for thick sputum, no hemoptysis, no indigestion, heartburn, dysuria, hematuria, she was incontinent of stool yesterday, denies pain, swelling. She denied personal history of cancer, known kidney disease. Family reported to Nursing history of heavy ETOH. Review of Systems 14 point ROS is negative except as stated in HPI Past Medical History Past Medical History: Thyroid Disorder Additional Past Medical History / Comment(s): ETOH abuse, anemia, hernia repair, depression, smoker 1.5ppd, kyphosis, breast cancer History of Any Multi-Drug Resistant Organisms: None Reported Past Surgical History: Section, Hernia Repair Additional Past Surgical History / Comment(s): hand Past Anesthesia/Blood Transfusion Reactions: No Reported Reaction Past Psychological History: Depression Smoking Status: Current every day smoker Past Alcohol Use History: Abuse Additional Past Alcohol Use History / Comment(s): started smoking at age 14; smokes 1.5 ppd Past Drug Use History: None Reported - Past Family History Sister(s) Family Medical History: Cancer Additional Family Medical History / Comment(s): bilateral breast cancer age 50 Brother(s) Family Medical History: Cancer Additional Family Medical History / Comment(s): five of eight brothers with liver cancer Medications and Allergies Home Medications Medication Instructions Recorded Confirmed Type Albuterol Inhaler [Ventolin Hfa 1 - 2 puff INHALATION RT-Q6H PRN 08/26/19 09/13/19 History Inhaler] Aspirin [Adult Low Dose Aspirin EC] 81 mg PO DAILY PRN 08/26/19 09/13/19 History Diclofenac Potassium [Cataflam] 50 mg PO BID 08/26/19 09/13/19 History Vortioxetine Hydrobromide 5 mg PO QAM 08/26/19 09/13/19 History [Trintellix] Allergies Allergy/AdvReac Type Severity Reaction Status Date / Time No Known Allergies Allergy Verified 09/13/19 17:44 Physical Exam Vitals: Vital Signs Temp Pulse Resp BP Pulse Ox 09/14/19 12:00 97.4 F L 56 L 16 158/93 95 09/14/19 11:00 66 21 152/90 96 09/14/19 10:00 66 25 H 169/91 95 09/14/19 09:29 68 09/14/19 09:22 72 93 L 09/14/19 09:00 71 16 143/91 93 L 09/14/19 08:00 97.4 F L 67 15 163/84 95 09/14/19 07:00 70 18 173/82 93 L 09/14/19 06:00 70 19 153/94 93 L 09/14/19 05:00 66 12 153/94 93 L 09/14/19 04:00 97.4 F L 65 11 L 148/84 93 L 09/14/19 03:21 97.6 F 78 16 148/82 09/14/19 03:00 75 22 152/82 89 L 09/14/19 02:00 97.9 F 76 15 146/83 96 09/14/19 01:48 97.4 F L 96 16 146/83 95 09/14/19 01:17 98.0 F 82 18 150/76 97 09/14/19 01:00 79 16 151/86 86 L 09/14/19 00:45 89 23 151/86 92 L 09/14/19 00:30 98.1 F 80 18 151/86 96 09/14/19 00:00 98.0 F 81 19 146/81 97 09/13/19 23:50 98.1 F 78 18 137/70 96 09/13/19 23:00 80 20 143/81 96 09/13/19 22:00 84 144/81 98 09/13/19 21:42 98.1 F 80 18 146/81 96 09/13/19 20:11 98 F 90 18 144/81 99 09/13/19 19:51 97.6 F 20 96 09/13/19 19:50 98 F 88 18 142/73 99 09/13/19 19:26 97.6 F 90 18 132/68 97 09/13/19 18:56 97.8 F 95 18 142/69 97 09/13/19 18:46 97.5 F L 94 18 119/59 94 L 09/13/19 17:00 97 09/13/19 16:15 96 09/13/19 16:06 88 09/13/19 16:00 89 100 09/13/19 15:51 88 09/13/19 15:24 98 96 Intake and Output 09/14/19 09/14/19 09/14/19 06:59 14:59 22:59 Intake Total 2320 730 Output Total 445 360 Balance 1875 370 Intake: IV 1050 730 Dextrose 5% in Water 1, 100 000 ml @ 100 mls/hr IV . [id number] ALANNA with Sodium Bicarb (1 Meq/ml) 150 ml Rx#:[id number] Sodium Chloride 0.9% 1, 1050 630 000 ml @ 60 mls/hr IV . [id number] ALANNA Rx#:[id number] Oral 250 Blood Product 1020 Rc Pheresis 2 As3 Unit 310 [id number] Rc Pheresis 2 As3 Unit 0 [id number] Output: Urine 445 360 Other: Voiding Method Indwelling Catheter Indwelling Catheter # Bowel Movements 2 Weight 55.9 kg 55.9 kg Bilateral breast exam performed with RN present and pt consent Right breast center of the breast lateral skin is hard, dry, nipple is inverted/flat, not adhered to the chest wall, SQ lesions in the anterior axillary area, no fungating mass or drainage, [address] palpated right axilla, 1 LN palpated in the left axilla, no mass palpated in the left breast - Constitutional General appearance: cooperative, no acute distress, thin - EENT Eyes: anicteric sclerae, EOMI, poor dentition ENT: hearing grossly normal - Neck Neck: no lymphadenopathy - Respiratory Respiratory: bilateral: diminished (weak inspiratory effort) - Cardiovascular Rhythm: regular Heart sounds: normal: S1, S2 Abnormal Heart Sounds: no systolic murmur, no diastolic murmur, no rub, no S3 Gallop, no S4 Gallop, no click, no other leg Peripheral Edema: bilateral: None - Gastrointestinal General gastrointestinal: no absent bowel sounds, no decreased bowel sounds, no distended, no hepatomegaly, no hyperactive bowel sounds, normal bowel sounds, no organomegaly, no rigid, no scaphoid, soft, no splenomegaly, no tenderness, no umbilical hernia, no ventral hernia - Integumentary bronzed skin tone - Neurologic Flex of the left hip pt had to hold her right leg, strength on the lower extremities was equal bilaterally - Musculoskeletal muscle wasting noted - Psychiatric mild confusion noted, random statements, moderate anxiety, tearful at time, relays significant stressors in life recently Psychiatric: A&O x's 3, appropriate affect Results CBC & Chem 7: 09/14/19 05:13 09/14/19 05:13 Labs: Abnormal Lab Results - Last 24 Hours (Table) 09/13/19 09/13/19 09/13/19 Range/Units 16:39 16:39 16:39 RBC 1.59 L (3.80-5.40) m/uL Hgb 4.5 L* D (11.4-16.0) gm/dL Hct 14.4 L* (34.0-46.0) % RDW 18.7 H (11.5-15.5) % Plt Count 96 L D (150-450) k/uL Lymphocytes # (1.0-4.8) k/uL APTT 18.1 L (22.0-30.0) sec Sodium 133 L (137-145) mmol/L Carbon Dioxide 16 L (22-30) mmol/L BUN 88 H (7-17) mg/dL Creatinine 6.88 H (0.52-1.04) mg/dL Glucose (74-99) mg/dL POC Glucose (mg/dL) (75-99) mg/dL Phosphorus (2.5-4.5) mg/dL AST (14-36) U/L Total Protein 5.7 L (6.3-8.2) g/dL Albumin 3.2 L (3.5-5.0) g/dL TSH (0.465-4.680) mIU/L Urine Appearance (Clear) Urine Protein (Negative) Urine Ketones (Negative) Urine Blood (Negative) Ur Leukocyte Esterase (Negative) Urine RBC (0-5) /hpf Urine WBC (0-5) /hpf Urine WBC Clumps (None) /hpf Urine Bacteria (None) /hpf Hyaline Casts (0-2) /lpf Urine Mucus (None) /hpf Urine Yeast (Budding) (None) /hpf Crossmatch 09/13/19 09/13/19 09/13/19 Range/Units 16:39 16:39 22:26 RBC (3.80-5.40) m/uL Hgb (11.4-16.0) gm/dL Hct (34.0-46.0) % RDW (11.5-15.5) % Plt Count (150-450) k/uL Lymphocytes # (1.0-4.8) k/uL APTT (22.0-30.0) sec Sodium (137-145) mmol/L Carbon Dioxide (22-30) mmol/L BUN (7-17) mg/dL Creatinine (0.52-1.04) mg/dL Glucose (74-99) mg/dL POC Glucose (mg/dL) 185 H (75-99) mg/dL Phosphorus (2.5-4.5) mg/dL AST (14-36) U/L Total Protein (6.3-8.2) g/dL Albumin (3.5-5.0) g/dL TSH 34.500 H (0.465-4.680) mIU/L Urine Appearance (Clear) Urine Protein (Negative) Urine Ketones (Negative) Urine Blood (Negative) Ur Leukocyte Esterase (Negative) Urine RBC (0-5) /hpf Urine WBC (0-5) /hpf Urine WBC Clumps (None) /hpf Urine Bacteria (None) /hpf Hyaline Casts (0-2) /lpf Urine Mucus (None) /hpf Urine Yeast (Budding) (None) /hpf Crossmatch See Detail 09/13/19 09/14/19 09/14/19 Range/Units 22:45 05:13 05:13 RBC 2.96 L (3.80-5.40) m/uL Hgb 8.5 L D (11.4-16.0) gm/dL Hct 26.4 L (34.0-46.0) % RDW 16.5 H (11.5-15.5) % Plt Count 77 L (150-450) k/uL Lymphocytes # 0.8 L (1.0-4.8) k/uL APTT (22.0-30.0) sec Sodium 130 L (137-145) mmol/L Carbon Dioxide 12 L (22-30) mmol/L BUN 83 H (7-17) mg/dL Creatinine 6.20 H (0.52-1.04) mg/dL Glucose 160 H (74-99) mg/dL POC Glucose (mg/dL) (75-99) mg/dL Phosphorus 8.4 H (2.5-4.5) mg/dL AST 38 H (14-36) U/L Total Protein 6.0 L (6.3-8.2) g/dL Albumin 3.1 L (3.5-5.0) g/dL TSH (0.465-4.680) mIU/L Urine Appearance Cloudy H (Clear) Urine Protein 1+ H (Negative) Urine Ketones 1+ H (Negative) Urine Blood Moderate H (Negative) Ur Leukocyte Esterase Large H (Negative) Urine RBC 141 H (0-5) /hpf Urine WBC >182 H (0-5) /hpf Urine WBC Clumps Many H (None) /hpf Urine Bacteria Occasional H (None) /hpf Hyaline Casts 7 H (0-2) /lpf Urine Mucus Rare H (None) /hpf Urine Yeast (Budding) Moderate H (None) /hpf Crossmatch Microbiology - Last 24 Hours (Table) 09/13/19 22:45 Urine Culture - Preliminary Urine,Voided Comments: NM bone scan report reviewed CT scan - abdomen: report reviewed CT Scan - head: report reviewed CT scan - pelvis: report reviewed Assessment and Plan (1) Breast mass Narrative/Plan: Pt had breast masses identified a month ago, states stresses in her life have kept her from following up. She has seen Dr. Bishop who is consulted. Pending biopsy for path and HR status. Tumor markers ordered. Bone mets incidentally found. NM bone scan ordered. Dex started Current Visit: Yes Status: Acute Priority: High Code(s): N63.0 - UNSPECIFIED LUMP IN UNSPECIFIED BREAST SNOMED Code(s): 82866652 (2) Anemia Narrative/Plan: Anemia is likely multifactorial, noted in 2017. Pt has received 3 units of PRBCs with appropriate increase in Hgb, this is going to alter iron studies so, will see if blood available from prior to transfusion to order anemia work up on Transfuse to keep Hgb 7 or greater Current Visit: Yes Status: Acute Priority: High Code(s): D64.9 - ANEMIA, UNSPECIFIED SNOMED Code(s): 233107016 (3) Acute renal failure Narrative/Plan: Nephrology consulted Pt does meet several criteria for MM but, having normal calcium level would be more consistent with a solid tumor. Will await Neph eval and recommendations Current Visit: Yes Status: Acute Priority: High Code(s): N17.9 - ACUTE KIDNEY FAILURE, UNSPECIFIED SNOMED Code(s): 99863104
--- NOTE | 2019-09-14 16:55 | PN ---
PROGRESS NOTE DATE OF SERVICE: 09/14/2019 This 49-year-old woman was admitted with significant anemia, weakness, possibly right breast cancer with metastasis. She is being closely monitored at this time. The patient had a CT of the brain yesterday which showed bony metastatic disease, nonspecific, with some white matter demyelination. CT scan of the abdomen, pelvis and chest also showed extensive bony metastatic disease and suspected bilateral hydronephrosis as well. Lungs were emphysematous. An abdominal bladder ultrasound was done which showed moderate bilateral hydronephrosis. A bone scan showed diffuse osseous metastasis throughout axial and appendicular spine. After IV fluids, creatinine has improved to 6.2 from 6.88 yesterday. Hemoglobin has gone up from 4.5 to 8.5 after 3 units of transfusion. No active GI bleeding is noted at this time. Past medical history reviewed. REVIEW OF SYSTEMS: CARDIOVASCULAR SYSTEM: As mentioned earlier. RESPIRATORY SYSTEM: As mentioned earlier. GI: As mentioned earlier. : No dysuria or retention. NERVOUS SYSTEM: No numbness, weakness. CURRENT MEDICATIONS: Reviewed. They include: 1. Tylenol p.r.n. 2. Viola 5 mg p.r.n. 3. DuoNeb q.i.d. and p.r.n. 4. Xanax 0.25 t.i.d. 5. Rocephin 1 gram daily. 6. Decadron 4 mg IV q.6. 7. Isovue. 8. Narcan. 9. Habitrol. 10.Protonix. PHYSICAL EXAMINATION: Patient is alert, oriented x2. Pulse 56. Blood pressure 158/93, respirations 16, temperature 97.4, pulse ox 94% on 2 L. The patient is mildly confused. HEENT: Conjunctivae normal. Oral mucosa moist. NECK: No jugular venous distention. No carotid bruit. No lymph node enlargement. CARDIOVASCULAR SYSTEM: S1, S2 muffled. No S3. No S4. RESPIRATORY SYSTEM: Breath sounds diminished at the bases. A few scattered rhonchi and crackles. ABDOMEN: Soft, non-tender. LEGS: No edema. No swelling. NERVOUS SYSTEM: Diffusely weak and wasted. Patient's BMI is 19.9. Diffuse weakness also present. SKIN: No ulcer, rash, bleeding. JOINTS: No active deforming arthropathy. LABS: WBC 6.5, hemoglobin 8.5. Sodium 130, potassium 5. UA noted; possible UTI. ASSESSMENT: 1. Possible right breast cancer with diffuse bony metastases. 2. Urinary tract infection. 3. Anemia, possibly multifactorial, secondary to nutritional as well as secondary to malignancy, severe, status post blood transfusions. No evidence of active GI bleeding at this time. 4. Bilateral hydronephrosis. 5. Renal failure, possibly acute renal failure, with possibly prerenal acute renal failure as well as postrenal acute renal failure as a combination with acute tubular necrosis, multifactorial. 6. History of ethanol abuse. 7. Hypothyroidism. 8. History of hernia repair. 9. History of depression. 10.History of nicotine dependence. 11.History of section. 12.Chronic obstructive pulmonary disease. 13.Hyponatremia. 14.Anemia. 15.Thrombocytopenia. RECOMMENDATIONS AND DISCUSSION: In this 49-year-old woman who presented with multiple complex medical issues, we will monitor the patient closely, continue the current medications, continue symptomatic treatment. As mentioned earlier, bone scan showed diffuse metastases. Empiric steroids have been recommended by Hematology/Oncology. We will await surgical evaluation for possible biopsy. Otherwise, monitor hemoglobin closely. There is no evidence of active bleeding at this time. I would recommend broad-spectrum antibiotics for UTI. Other than that, I would recommend cultures and continue to monitor. Bronchodilators for the COPD. Urology has been consulted for bilateral hydronephrosis. The prognosis is guarded because of the multiple complex medical issues. Further recommendations to follow. A copy of this dictation is being forwarded to Dr. Sotelo, who is the primary physician. MMODL / IJN: [id number] /
[2019-09-14] MEDS: ACETAMINOPHEN TAB 325 MG TAB PO PRN (19:33)
--- NOTE | 2019-09-14 21:57 | CONS ---
CONSULTATION REASON FOR CONSULT: Renal failure. HISTORY OF PRESENT ILLNESS: The patient is a 49-year-old female who was admitted to the hospital with complaints of generalized weakness. The patient was also short of breath. She denies any prior history of kidney diseases. The patient was found to have a hemoglobin of 4.5 and a serum creatinine of 6.8. The patient denies any active bleeding. She also has a history of breast cancer, which was recently diagnosed. Ultrasound of the abdomen shows moderate bilateral hydronephrosis. Patient currently has an indwelling Dillard catheter; patient has had urine output of about 40 mL/hour. Her blood pressure has not been low. Review of home medications does show patient taking NSAIDs at home in the form of Cataflam. PAST MEDICAL HISTORY: Past medical history is significant for recent diagnosis of right breast cancer, hypothyroidism, significant history of alcohol abuse. PAST SURGICAL HISTORY: , hernia repair. SOCIAL HISTORY: Positive for smoking. No history of other drug abuse. The patient does have history of EtOH abuse. MEDICATIONS: Medications at home prior to admission included Cataflam, albuterol, aspirin, Trintellix. ALLERGIES: NONE. REVIEW OF SYSTEMS: As per HPI. Other systems negative. PHYSICAL EXAMINATION: On examination, patient is comfortable, awake. She is not in any acute distress. She is confused at times. This morning blood pressure was 163/84, heart rate of 56 per minute. Patient is afebrile. EXAMINATION OF THE HEART: S1 and S2. EXAMINATION OF LUNGS: Decreased breath sounds at bases. ABDOMEN: Soft, non-tender. Examination of lower extremities shows no significant edema. 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 She has been confused at times as per nursing staff. LABS: Hemoglobin 8.5. Sodium 130, potassium 5.0. CO2 is 12. Chloride 102. BUN 83, creatinine 6.2. TSH 34. UA shows WBCs more than 182, 1+ ketones, protein 1+, blood moderate. Stool for occult blood is negative. ASSESSMENT: 1. Acute kidney injury secondary to obstructive uropathy with evidence of bilateral hydronephrosis as well as component of acute kidney injury from NSAIDs. Patient's home medicines show that she was taking Cataflam. Currently she is nonoliguric. The patient is maintained on IV fluids. We will consult Urology and continue with the IV fluids for now. Repeat labs in a.m. No acute indication for dialysis at this time. 2. Severe anion gap metabolic acidosis secondary to renal failure. Will start bicarb drip. 3. Hyponatremia which appears to be hypovolemic. Continue with the IV fluids and repeat labs in a.m. 4. Severe anemia on presentation with stool for occult blood being negative, possibly related to underlying malignancy. 5. Severe hypothyroidism with TSH at 34. 6. Lytic lesions throughout her skeletal system, most likely from metastatic breast cancer. PLAN: Consult Urology. Start bicarb drip. Repeat labs in a.m. Avoid NSAIDs. If renal function does not improve, patient will need ureteral stents. Thank you for this consultation. We will continue to follow the patient with you during her hospitalization. MMODL / IJN: [id number] /
[2019-09-15] MEDS: DEXAMETHASONE SOD PHOSPHATE 4 MG/ML 1 ML VIAL IV SCH ×5 (00:53→23:52)
[2019-09-15] MEDS: DEXTROSE 5% IN WATER 1,000 ML with SODIUM BICARB (1 MEQ/ML) 150 ML IV SCH ×2 (00:53→13:24)
[2019-09-15] MEDS: SODIUM CHLORIDE 0.9% 1,000 ML IV SCH ×2 (00:53→13:26)
[2019-09-15] MEDS: ACETAMINOPHEN TAB 325 MG TAB PO PRN (04:05)
[2019-09-15] MEDS: ALPRAZolam 0.25 MG TAB PO PRN ×2 (05:38→17:22)
--- NOTE | 2019-09-15 07:24 | XR ---
EXAMINATION TYPE: XR chest 1V DATE OF EXAM: 09/15/2019 COMPARISON: 09/14/2019 HISTORY: COPD, dyspnea, renal failure, cough, and metastatic disease. TECHNIQUE: Single frontal view of the chest is obtained. FINDINGS: Increasing right basilar opacity and persistent retrocardiac opacity are seen. New left pe rihilar opacity is present. Lung apices are well aerated. Pulmonary hyperinflation of underlying COPD . Extensive multifocal known diffuse osseous metastasis with mottled bone marrow throughout. Stable c ardiac mediastinal silhouette. IMPRESSION: Increasing right basilar opacity and new left perihilar opacity with stable retrocardiac opacity. Findings may be on the basis of confluent pulmonary edema or multifocal pneumonia.
[2019-09-15] MEDS: IPRATROPIUM-ALBUTEROL 3 ML NEB INHALATION SCH ×3 (07:42→21:13)
[2019-09-15] MEDS: HEPARIN SODIUM,PORCINE 5,000 UNIT/ML 1 ML VIAL SQ SCH ×2 (07:56→20:44)
[2019-09-15] MEDS: PANTOPRAZOLE 40 MG TABLET PO SCH (07:56)
[2019-09-15] MEDS: NICOTINE 14MG/24HR PATCH TRANSDERM SCH (07:56)
[2019-09-15 09:40] LABS: Anisocytosis Slight; Basophils # (A) 0.1 k/uL (0-0.2); Basophils % (A) 1 %; Eosinophils % (A) 0 %; HCT 25.9 % (34.0-46.0); HGB 8.4 gm/dL (11.4-16.0); Hypochromasia Slight; Lymphocytes # (A) 0.8 k/uL (1.0-4.8); Lymphocytes % (A) 10 %; MCH 28.6 pg (25.0-35.0); MCHC 32.3 g/dL (31.0-37.0); MCV 88.6 fL (80.0-100.0); Mean Platelet Volume 8.5; Monocytes # (A) 0.3 k/uL (0-1.0); Monocytes % (A) 4 %; Neutrophils # (A) 6.6 k/uL (1.3-7.7); Neutrophils % (A) 83 %; Poikilocytosis Slight; RBC 2.93 m/uL (3.80-5.40); RDW 17.2 % (11.5-15.5); WBC 7.9 k/uL (3.8-10.6)
[2019-09-15 10:18] LABS: Platelet Count 79 k/uL (150-450)
[2019-09-15] MEDS: HYDROcodone/APAP 5-325MG 1 EACH TAB PO PRN ×3 (11:45→22:36)
--- NOTE | 2019-09-15 12:40 | P.PN ---
Subjective Progress Note Date: 09/15/19 Principal diagnosis: breast mass, bone lesions In f/u today pt denies any specific c/o, she is anxious to have a plan, no fever, nausea, chest pain, ABDULLAHI, mild cough, no abd pain, no incontinence today. Objective - Vital Signs Vital signs: Vital Signs Temp 99 F 09/15/19 04:45 Pulse 68 09/15/19 07:55 Resp 18 09/15/19 04:45 BP 147/83 09/15/19 04:45 Pulse Ox 94 L 09/15/19 04:45 Intake & Output 09/14/19 09/15/19 09/15/19 18:59 06:59 18:59 Intake Total 730 3000 Output Total 360 900 Balance 370 3000 -900 Weight 55.9 kg Intake: IV 730 1920 Dextrose 5% in Water 1, 100 1200 000 ml @ 100 mls/hr IV . [id number] ALANNA with Sodium Bicarb (1 Meq/ml) 150 ml Rx#:[id number] Sodium Chloride 0.9% 1, 630 720 000 ml @ 60 mls/hr IV . [id number] ALANNA Rx#:[id number] Oral 1080 Output: Urine 360 900 Other: Voiding Method Indwelling Catheter Indwelling Catheter # Bowel Movements 2 1 - Constitutional Constitutional Comment(s): anxious, tearful at times General appearance: Present: cooperative, no acute distress, thin - EENT Eyes: Present: anicteric sclerae, EOMI ENT: Present: hearing grossly normal - Neck Neck: Present: lymphadenopathy (bilateral axillary adenopathy) - Respiratory Respiratory: bilateral: CTA, diminished - Cardiovascular Rhythm: regular Heart sounds: normal: S1, S2 Abnormal Heart Sounds: Absent: systolic murmur, diastolic murmur, rub, S3 Gallop, S4 Gallop, click, other - Peripheral edema leg Peripheral Edema: bilateral: None - Gastrointestinal General gastrointestinal: Present: normal bowel sounds, soft - Neurologic Neurologic Comment(s): mild lower extremity weakness, sitting up with frog legs Neurologic: Present: CNII-XII intact - Musculoskeletal Musculoskeletal: Present: generalized weakness, strength equal bilaterally - Psychiatric Psychiatric: Present: A&O x's 3, appropriate affect - Labs CBC & Chem 7: 09/15/19 08:07 09/15/19 08:07 Labs: Abnormal Lab Results - Last 24 Hours (Table) 09/13/19 09/13/19 Range/Units 16:39 16:39 CA 15-3 Antigen 641.2 H (0.0-32.3) U/mL CA 27-29 625.3 H (0.0-38.5) U/mL Microbiology - Last 24 Hours (Table) 09/13/19 15:50 Blood Culture - Preliminary Blood No Growth after 24 hours 09/13/19 22:45 Urine Culture - Preliminary Urine,Voided - Imaging and Cardiology NM bone scan report reviewed Assessment and Plan (1) Breast mass Narrative/Plan: Pt had breast masses identified a month ago, states stresses in her life have kept her from following up. IR reviewed case, they will perform biopsy. Needing enough specimen for HR and Her2 testing as well as NGS. Case was discussed with Rad RN. Tumor markers returned both >600 Bone mets incidentally found. NM bone scan reported as metastatic disease widespread in both axial and appendicular skeleton. Dex started. MRI spine ordered because of incontinence and concerns for cord compression Current Visit: Yes Status: Acute Priority: High Code(s): N63.0 - UNSPECIFIED LUMP IN UNSPECIFIED BREAST SNOMED Code(s): 33917508 (2) Anemia Narrative/Plan: Anemia is likely multifactorial, noted in 2017. Pt has received 3 units of PRBCs with appropriate increase in Hgb, this is going to alter iron studies so, will see if blood available from prior to transfusion to order anemia work up on, if not, will wait Transfuse to keep Hgb 7 or greater. Hgb stable today Current Visit: Yes Status: Acute Priority: High Code(s): D64.9 - ANEMIA, UNSPECIFIED SNOMED Code(s): 676408576 (3) Acute renal failure Narrative/Plan: Nephrology is following, Urology consulted Current Visit: Yes Status: Acute Priority: High Code(s): N17.9 - ACUTE KIDNEY FAILURE, UNSPECIFIED SNOMED Code(s): 97701236 Plan: Doctor attests: I performed a history and physical examination of this patient, developed i mpression and plan of care, discussed with dictator. I agree with dictators note, documented as a scribe.
--- NOTE | 2019-09-15 12:59 | P.GSHP ---
History of Present Illness H&P Date: 09/15/19 Chief Complaint: Right breast mass Leslie is a 49-year-old white female who was seen in consultation on 1919 for a right breast abnormality. At that time she states that she had fallen from a palliative several years previous and injured her right breast. Since that time she developed increasing fullness in the right breast about it was related to the injury. A mammogram was performed on 122 . This revealed gross deformity of the right breast. No abnormality was described in the left breast. The patient had an ultrasound done bilaterally of the breast and the ultrasound revealed in the right breast a 17 x 37 mm irregular solid lesion at 9:00 for which biopsy was recommended as well as a 10 mm lymph node in the axilla for which biopsy was recommended. In the left breast was noted to have a lesion at 5:00 and biopsy was recommended for this as well. The patient had lumbar spine x-rays performed which revealed diffuse abnormal bony changes highly suggestive of malignancy. At the level of L1 there was a superior endplate compression fracture. The patient had bilateral hip x-rays revealing diffuse abnormalities with the appearance of widespread bony metastases involving the right inferior pubic ramus as well. The patient was recently admitted to the hospital with progressive shortness of breath. She was noted to have severe anemia, acute renal failure. She has had unintentional weight loss over the past several months. Additionally she has appeared active cough with thick sputum. She was noted on admission to have a hemoglobin of 4.5 and after transfusions her hemoglobin increased to 8.5. During this hospitalization there is concern that she should have a biopsy to prove the lesion in the breast is consistent with breast cancer. Family history: Sr.: Bilateral breast cancer age 51 Maternal niece: Breast cancer 52 5 brothers: Alcoholics developed liver cancer Surgical history: 1. Left finger 2. 2 C-sections 3. Tubal ligation 4. Umbilical hernia repair Medical history: 1. Hypothyroid 2. COPD 3. Scoliosis 4. Anemia 5. ETOH abuse Social history: Smoke: One and a half packs per day since 14 Alcohol: He has stopped drinking 2 years ago was in rehab for alcohol abuse Drugs: Negative - Constitutional Comment: Weight loss - EENT Eyes: denies blurred vision, denies pain Ears: deny: decreased hearing, tinnitus Ears, nose, mouth and throat: Reports headache - Breasts Breasts: bilateral: as per HPI - Cardiovascular Comment: Shortness of breath - Respiratory Comment: COPD Respiratory: Reports cough - Gastrointestinal Comment: Abdominal distention - Genitourinary (Female) Comment: Renal failure - Menstruation Menstruation: Reports postmenopausal - Musculoskeletal Comment: Arthritis, upper back pain, bilateral hip pain, myalgias, most likely extensive osseous metastatic disease related to breast cancer - Integumentary Comment: Skin changes right breast consistent with thickening and breast cancer - Neurological Comment: Reports tingling - Psychiatric Psychiatric: Reports anxiety, Reports depression - Endocrine Endocrine: Reports fatigue, Reports weight change - Hematologic/Lymphatic Hematologic/Lymphatic: Reports as per HPI Past Medical History Past Medical History: Thyroid Disorder Additional Past Medical History / Comment(s): ETOH abuse, anemia, hernia repair, depression, smoker 1.5ppd, kyphosis, breast cancer History of Any Multi-Drug Resistant Organisms: None Reported Past Surgical History: Section, Hernia Repair Additional Past Surgical History / Comment(s): hand Past Anesthesia/Blood Transfusion Reactions: No Reported Reaction Past Psychological History: Depression Smoking Status: Current every day smoker Past Alcohol Use History: Abuse Additional Past Alcohol Use History / Comment(s): started smoking at age 14; smokes 1.5 ppd Past Drug Use History: None Reported - Past Family History Sister(s) Family Medical History: Cancer Additional Family Medical History / Comment(s): bilateral breast cancer age 50 Brother(s) Family Medical History: Cancer Additional Family Medical History / Comment(s): five of eight brothers with liver cancer Medications and Allergies Home Medications Medication Instructions Recorded Confirmed Type Albuterol Inhaler [Ventolin Hfa 1 - 2 puff INHALATION RT-Q6H PRN 08/26/19 09/13/19 History Inhaler] Aspirin [Adult Low Dose Aspirin EC] 81 mg PO DAILY PRN 08/26/19 09/13/19 History Diclofenac Potassium [Cataflam] 50 mg PO BID 08/26/19 09/13/19 History Vortioxetine Hydrobromide 5 mg PO QAM 08/26/19 09/13/19 History [Trintellix] Allergies Allergy/AdvReac Type Severity Reaction Status Date / Time No Known Allergies Allergy Verified 09/13/19 17:44 Surgical - Exam Vital Signs Temp Pulse Resp BP Pulse Ox 97.7 F 99 18 89/59 92 L 09/13/19 15:05 09/13/19 15:05 09/13/19 15:05 09/13/19 15:05 09/13/19 15:05 BMI: 19.9 - General cachectic - Eyes normal ocular movement - ENT normal pinna - Neck Left cervical adenopathy, posterior cervical region trachea midline - Respiratory Rhonchi, decreased breath sounds at the bases - Cardiovascular Rhythm: regular Heart Sounds: normal: S1, S2 - Abdomen No guarding or rebound Abdomen: soft - Integumentary Thickening of the skin over the right breast related to breast disease area proximally 17 cm x 8 cm in size - Neurologic no disoriented, no combative - Musculoskeletal Kyphosis, difficulty with any ambulation - Psychiatric oriented to time, oriented to person, oriented to place, speech is normal, memory intact Breast examination: Right breast marked induration with a area of thickening of the skin at this site, the breast is dense and shrunken, highly suspicious for advanced cancer, there is an area of firmness extending onto the skin approximately 17 cm x 8 cm, the disease is not fixed to the chest wall Right axilla: Positive axillary adenopathy Left breast: Multiple positional exam no dominant masses or nodules of concern Left axilla: Positive axillary adenopathy Results Computed tomography scan, bone scan, laboratory results reviewed - Labs 09/15/19 08:07 09/15/19 08:07 Abnormal Lab Results - Last 24 Hours (Table) 09/13/19 09/13/19 09/15/19 Range/Units 16:39 16:39 08:07 RBC 2.93 L (3.80-5.40) m/uL Hgb 8.4 L (11.4-16.0) gm/dL Hct 25.9 L (34.0-46.0) % RDW 17.2 H (11.5-15.5) % Plt Count 79 L (150-450) k/uL Lymphocytes # 0.8 L (1.0-4.8) k/uL Sodium (137-145) mmol/L BUN (7-17) mg/dL Creatinine (0.52-1.04) mg/dL Glucose (74-99) mg/dL CA 15-3 Antigen 641.2 H (0.0-32.3) U/mL CA 27-29 625.3 H (0.0-38.5) U/mL 09/15/19 Range/Units 08:07 RBC (3.80-5.40) m/uL Hgb (11.4-16.0) gm/dL Hct (34.0-46.0) % RDW (11.5-15.5) % Plt Count (150-450) k/uL Lymphocytes # (1.0-4.8) k/uL Sodium 135 L (137-145) mmol/L BUN 80 H (7-17) mg/dL Creatinine 5.23 H (0.52-1.04) mg/dL Glucose 134 H (74-99) mg/dL CA 15-3 Antigen (0.0-32.3) U/mL CA 27-29 (0.0-38.5) U/mL Microbiology - Last 24 Hours (Table) 09/13/19 22:45 Urine Culture - Final Urine,Voided 09/13/19 15:50 Blood Culture - Preliminary Blood No Growth after 24 hours Diabetes panel 09/15/19 Range/Units 08:07 Sodium 135 L (137-145) mmol/L Potassium 4.0 (3.5-5.1) mmol/L Chloride 98 (98-107) mmol/L Carbon Dioxide 22 (22-30) mmol/L BUN 80 H (7-17) mg/dL Creatinine 5.23 H (0.52-1.04) mg/dL Glucose 134 H (74-99) mg/dL Calcium 9.0 (8.4-10.2) mg/dL Calcium panel 09/15/19 Range/Units 08:07 Calcium 9.0 (8.4-10.2) mg/dL Pituitary panel 09/15/19 Range/Units 08:07 Sodium 135 L (137-145) mmol/L Potassium 4.0 (3.5-5.1) mmol/L Chloride 98 (98-107) mmol/L Carbon Dioxide 22 (22-30) mmol/L BUN 80 H (7-17) mg/dL Creatinine 5.23 H (0.52-1.04) mg/dL Glucose 134 H (74-99) mg/dL Calcium 9.0 (8.4-10.2) mg/dL Adrenal panel 09/15/19 Range/Units 08:07 Sodium 135 L (137-145) mmol/L Potassium 4.0 (3.5-5.1) mmol/L Chloride 98 (98-107) mmol/L Carbon Dioxide 22 (22-30) mmol/L BUN 80 H (7-17) mg/dL Creatinine 5.23 H (0.52-1.04) mg/dL Glucose 134 H (74-99) mg/dL Calcium 9.0 (8.4-10.2) mg/dL Assessment and Plan Assessment: Impression/plan: 1. Mass/skin changes right breast most likely advanced breast cancer 2. Bilateral axillary adenopathy 3. Left cervical adenopathy 4. Back pain 5. COPD 6. Kyphosis 7. Family history of cancer 8. Family history of breast cancer 9. Anxiety depression 10. Most likely metastatic bony disease 11. Anemia Plan: 1. Core biopsy right breast 2. Medical management of medical conditions 3. Following results of core biopsy medical oncology evaluation, patient is not a candidate for surgical intervention at this time Encounter: 40 minutes, greater than 50% of time in planning and counseling Time with Patient: Greater than 30
--- NOTE | 2019-09-15 15:13 | USB ---
EXAMINATION TYPE: US breast needle core RT DATE OF EXAM: 09/15/2019 HISTORY: Right breast mass. FINDINGS: Maximal barrier technique was utilized. Hand hygiene achieved with soap and water and alcohol-based hand rub. The skin overlying a suitable path to the patient's mass in the right breast subareolar position was localized with ultrasound and the overlying skin prepped and draped. Ultrasound was utilized with sterile technique. Lidocaine was used for local anesthesia. A skin chani was made with a scalpel. An 18-gauge needle was advanced under direct ultrasound guidance and core specimen obtained of the mass. 4 passes were made. Specimens submitted in formalin to Pathology. Following the procedure, hemostasis achieved and the patient is discharged in stable condition without complication. IMPRESSION:STATUS POST ULTRASOUND GUIDED CORE BIOPSY OF right breast MASS, PATHOLOGY IS PENDING. THIS PROCEDURE IS PERFORMED BY THE UNDERSIGNED. 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 See note. An appropriately controlled immunohistochemical stain for EDUARDA 3 is performed because the tumor cells are poorly differentiated raising the question of metastatic disease from a non breast primary; tumor cells show strong nuclear positivity as expected in primary breast cancer. Recommendation Surgical consult of the right breast. JUAN
--- NOTE | 2019-09-15 16:01 | P.PN ---
Subjective Progress Note Date: 09/15/19 Principal diagnosis: Bilateral hydronephrosis No acute overnight events, denies any flank pain. He continues to make adequate urine output Objective - Vital Signs Vital signs: Vital Signs Temp 97.4 F L 09/15/19 13:46 Pulse 74 09/15/19 13:46 Resp 18 09/15/19 13:46 BP 160/79 09/15/19 13:46 Pulse Ox 93 L 09/15/19 13:46 Intake & Output 09/14/19 09/15/19 09/15/19 18:59 06:59 18:59 Intake Total 730 3000 3610 Output Total 360 1800 Balance 370 3000 1810 Weight 55.9 kg Intake: IV 730 1920 660 Dextrose 5% in Water 1, 100 1200 000 ml @ 100 mls/hr IV . [id number] ALANNA with Sodium Bicarb (1 Meq/ml) 150 ml Rx#:[id number] Sodium Chloride 0.9% 1, 630 720 660 000 ml @ 60 mls/hr IV . [id number] ALANNA Rx#:[id number] Intake, IV Titration 1800 Amount Dextrose 5% in Water 1, 1800 000 ml @ 100 mls/hr IV . [id number] ALANNA with Sodium Bicarb (1 Meq/ml) 150 ml Rx#:[id number] Oral 1080 1150 Output: Urine 360 1800 Other: Voiding Method Indwelling Catheter Indwelling Catheter Indwelling Catheter # Voids 1 # Bowel Movements 2 1 1 - Constitutional General appearance: Present: no acute distress, thin - Gastrointestinal General gastrointestinal: Present: soft. Absent: distended, rigid - Labs CBC & Chem 7: 09/15/19 08:07 09/15/19 08:07 Labs: Abnormal Lab Results - Last 24 Hours (Table) 09/13/19 09/13/19 09/15/19 Range/Units 16:39 16:39 08:07 RBC 2.93 L (3.80-5.40) m/uL Hgb 8.4 L (11.4-16.0) gm/dL Hct 25.9 L (34.0-46.0) % RDW 17.2 H (11.5-15.5) % Plt Count 79 L (150-450) k/uL Lymphocytes # 0.8 L (1.0-4.8) k/uL Sodium (137-145) mmol/L BUN (7-17) mg/dL Creatinine (0.52-1.04) mg/dL Glucose (74-99) mg/dL CA 15-3 Antigen 641.2 H (0.0-32.3) U/mL CA 27-29 625.3 H (0.0-38.5) U/mL 09/15/19 Range/Units 08:07 RBC (3.80-5.40) m/uL Hgb (11.4-16.0) gm/dL Hct (34.0-46.0) % RDW (11.5-15.5) % Plt Count (150-450) k/uL Lymphocytes # (1.0-4.8) k/uL Sodium 135 L (137-145) mmol/L BUN 80 H (7-17) mg/dL Creatinine 5.23 H (0.52-1.04) mg/dL Glucose 134 H (74-99) mg/dL CA 15-3 Antigen (0.0-32.3) U/mL CA 27-29 (0.0-38.5) U/mL Microbiology - Last 24 Hours (Table) 09/13/19 22:45 Urine Culture - Final Urine,Voided 09/13/19 15:50 Blood Culture - Preliminary Blood No Growth after 24 hours Assessment and Plan Assessment: 49-year-old female admitted to the hospital with weakness, poor by mouth intake, anemia with hemoglobin of 4.5 and LEO. Her creatinine is elevated at 6.88 from a baseline of 1.2. She underwent a CT that demonstrated bilateral hyd ronephrosis, without an obvious point of obstruction. Since admission she's been having adequate urine output. Creat 5.23 from 6.88 on presentation. -Patient LEO is most likely multifactorial, He creat continue to trend down -Please keep del rio in place -If her creat does not improve despite IV fluids and a [place] catheter, then we'll consider bilateral ureteral stent placements
--- NOTE | 2019-09-15 16:33 | P.PN ---
Subjective Progress Note Date: 09/15/19 On today's evaluation the patient is out of the intensive care unit with a stable hemoglobin. The workup is in progress regarding the breast mass and anemia. The patient has already received a total of 3 units of packed RBC. The patient has not drop in hemoglobin. The patient has still ongoing thrombo cytopenia. The radiologist already performed the biopsy and the results are still pending for now. Meanwhile, the patient was also seen by urology. No immediate plans for any intervention at this point in time and the patient is having improvement in her creatinine and she is producing urine output in the Dillard catheter is in place. She has some limited shortness of breath yet not at rest. Note that she had also a left-sided pleural effusion which is larger than the one on the right. The computed tomography scan of the chest also showed diffuse emphysematous changes. No evidence of any pneumonia. The patient is not producing any significant sputum. She is currently on oxygen. Objective - Vital Signs Vital signs: Vital Signs Temp 97.4 F L 09/15/19 13:46 Pulse 74 09/15/19 13:46 Resp 18 09/15/19 13:46 BP 160/79 09/15/19 13:46 Pulse Ox 93 L 09/15/19 13:46 Intake & Output 09/14/19 09/15/19 09/15/19 18:59 06:59 18:59 Intake Total 730 3000 3610 Output Total 360 2150 Balance 370 3000 1460 Weight 55.9 kg Intake: IV 730 1920 660 Dextrose 5% in Water 1, 100 1200 000 ml @ 100 mls/hr IV . [id number] [facility] with Sodium Bicarb (1 Meq/ml) 150 ml Rx#:[id number] Sodium Chloride 0.9% 1, 630 720 660 000 ml @ 60 mls/hr IV . [id number] [facility] Rx#:[id number] Intake, IV Titration 1800 Amount Dextrose 5% in Water 1, 1800 000 ml @ 100 mls/hr IV . [id number] [facility] with Sodium Bicarb (1 Meq/ml) 150 ml Rx#:[id number] Oral 1080 1150 Output: Urine 360 2150 Other: Voiding Method Indwelling Catheter Indwelling Catheter Indwelling Catheter # Voids 1 # Bowel Movements 2 1 1 - Exam Gen. appearance the patient is cachectic, comfortable likely distress Head exam was generally normal. There was no scleral icterus or corneal arcus. Mucous membranes were moist. Neck was supple and without jugular venous distension, thyromegaly, or carotid bruits. Carotids were easily palpable bilaterally. There was no adenopathy. The patient has left cervical adenopathy involving the posterior cervical region. Lungs sounds are diminished bilaterally and there are diminished breath on the left lung base consistent with left-sided pleural effusion. Cardiac exam revealed the PMI to be normally situated and sized. The rhythm was regular and no extrasystoles were noted during several minutes of auscultation. The first and second heart sounds were normal and physiologic splitting of the second heart sound was noted. There were no murmurs, rubs, clicks, or gallops. Abdominal exam revealed normal bowel sounds. The abdomen was soft, non-tender, and without masses, organomegaly, or appreciable enlargement of the abdominal aorta. Examination of the extremities revealed easily palpable radial, femoral and pedal pulses. There was no cyanosis, clubbing or edema. Examination of the skin revealed abnormal breast with skin changes related to the breast disease affecting mainly the right breast consistent with inflammatory breast cancer. - Labs CBC & Chem 7: 09/15/19 08:07 09/15/19 08:07 Labs: Abnormal Lab Results - Last 24 Hours (Table) 09/13/19 09/13/19 09/15/19 Range/Units 16:39 16:39 08:07 RBC 2.93 L (3.80-5.40) m/uL Hgb 8.4 L (11.4-16.0) gm/dL Hct 25.9 L (34.0-46.0) % RDW 17.2 H (11.5-15.5) % Plt Count 79 L (150-450) k/uL Lymphocytes # 0.8 L (1.0-4.8) k/uL Sodium (137-145) mmol/L BUN (7-17) mg/dL Creatinine (0.52-1.04) mg/dL Glucose (74-99) mg/dL CA 15-3 Antigen 641.2 H (0.0-32.3) U/mL CA 27-29 625.3 H (0.0-38.5) U/mL 09/15/19 Range/Units 08:07 RBC (3.80-5.40) m/uL Hgb (11.4-16.0) gm/dL Hct (34.0-46.0) % RDW (11.5-15.5) % Plt Count (150-450) k/uL Lymphocytes # (1.0-4.8) k/uL Sodium 135 L (137-145) mmol/L BUN 80 H (7-17) mg/dL Creatinine 5.23 H (0.52-1.04) mg/dL Glucose 134 H (74-99) mg/dL CA 15-3 Antigen (0.0-32.3) U/mL CA 27-29 (0.0-38.5) U/mL Microbiology - Last 24 Hours (Table) 09/13/19 22:45 Urine Culture - Final Urine,Voided 09/13/19 15:50 Blood Culture - Preliminary Blood No Growth after 24 hours Assessment and Plan Plan: 1 bilateral breast masses and the patient's right breast is deformed and the skin is densities shrunken and it's very highly suspicious for advanced cancer as the patient also has lymphadenopathy. Overlying skin is abnormal in the area is extending around 17 x 8 cm in size and the disease is not fixed to the chest wall. Right axillary is positive for palpable lymph nodes and the left breast shows no palpable masses yet there is left axillary adenopathy and a mammogram is abnormal. Suspect bilateral breast cancer of an inflammatory type. The bishop ent underwent a needle core biopsy by interventional radiology and results are still pending for now. 2 acute anemia, without evidence of any GI bleeding transfused with a total of 3 units of packed RBC and hemoglobin is 8 for now and there is no further drop in hemoglobin. 3 acute kidney injury, bilateral hydronephrosis, nephrology and urology are both on the case and the patient is producing urine output and the renal function is also improving 4 acute thrombocytopenia with normal coagulation profile, DIC is possible although doubtful at this stage within normal coagulation profile. Consider consumptive thrombocytopenia I'll consider underlying sepsis consuming the patient's underlying platelets 5 skeletal metastases with normal calcium levels 6 consider hypothyroidism as the patient's TSH from July 2019 was quite elevated, the repeat levels showed a TSH is elevated with a free T4 of 0.84 7 kyphosis and scoliosis 8 skeletal pain, secondary to above 9 COPD with chronic smoking 10 history of alcoholism 11 strong family history for breast cancer 12 diffuse skeletal metastases and the patient has diffuse lytic lesions in addition to inferior pubic rami fracture with a periosteal reactions and there is destruction of the the pelvis and there is also involvement of the iliac bones and the vertebral mild is on multiple levels in addition to loss of height in the L5 spine 13 left side pleural effusion along with a right-sided pleural effusion, left more than right 14 difficulty with mobility and ambulation as the patient has bilateral hip x- rays this revealed diffuse abnormal appearance of the osseous structures suggestive of widespread bony metastases there is a deformity involving the right inferior pubic ramus which could have been the basis of a subacute to chronic fracture 15 UTI awaiting final cultures Plan Awaiting final results of the core biopsy Pleural effusions are small and warrants no immediate drainage Monitor renal function Nephrology, urology and oncology on The case. For now we'll sign off the case.
--- NOTE | 2019-09-15 18:37 | PN ---
PROGRESS NOTE Patient is seen for followup for acute kidney injury. She is going down to Interventional Radiology for a biopsy of the breast mass on the right breast. Patient has had good urine output; 24-hour urine output documented at about 2.1 liters. Serum creatinine is 5.2, from 6.8 yesterday. Patient is maintained on IV bicarb and normal saline. PHYSICAL EXAMINATION: On examination today, blood pressure was 160/79. Earlier this morning she was 155/110, heart rate 89 per minute. Patient is afebrile. EXAMINATION OF THE HEART: S1 and S2. EXAMINATION OF LUNGS: Bilateral breath sounds are heard. Decreased breath sounds at bases. ABDOMEN: Soft, non-tender. Examination of lower extremities shows no significant edema. LABS: Sodium of 135, potassium 4.0, chloride 98, BUN 80, creatinine 5.23, phosphorus 8.4. UA shows WBCs more than 182. ASSESSMENT: 1. Acute kidney injury with evidence of hydronephrosis on the ultrasound, being followed by Urology. Currently maintained on Dillard catheter. There is consideration for bilateral ureteral stent placements. 2. Breast cancer with metastasis. 3. Pyuria. Urine culture shows no significant growth. 4. Severe anion-gap metabolic acidosis, now improved. Maintained on IV bicarb. 5. Severe anemia with stool for occult blood being negative. 6. Severe hypothyroidism; TSH at 34. PLAN: Continue with IV fluids. Continue with the IV bicarb. I will discontinue that tomorrow. Repeat labs in a.m. Continue to avoid nephrotoxic agents. Patient will most likely need ureteral stents down the road. MMODL / IJN: [id number] /
--- NOTE | 2019-09-15 19:35 | MR ---
EXAMINATION TYPE: MR cervical spine wo con DATE OF EXAM: 09/15/2019 COMPARISON: None HISTORY: Neck/back pain, metastatic disease Multiplanar multiecho imaging of the cervical spine was performed without contrast. Cervical vertebra have normal alignment. Disc spaces are fairly normal. There is no compression fract ure. Cervical spinal cord has normal signal pattern. There is no edema. The brainstem is intact. Ther e is small posterior disc bulging at C3-4. There is no significant spinal stenosis. Canal measures 10 mm at C3-4. I see no cervical paraspinal mass. There is some increased signal on the T1 images in th e posterior C3 vertebra and the C5 vertebral body probably due to fatty marrow replacement. I see no definite focal bone destruction. Exam is limited somewhat by motion. IMPRESSION: Within the limits of the exam there is no evidence for metastatic disease. No spinal stenosis.
--- NOTE | 2019-09-15 22:42 | P.PN ---
Subjective Progress Note Date: 09/15/19 Principal diagnosis: Acute kidney injury Possible right-sided breast cancer Patient is a 49-year-old female was admitted to the hospital with significant anemia and generalized weakness and acute kidney injury and possible right breast cancer. Patient had CT head showed bony metastasis and CT of the abdominal pelvis was done showed extensive bony metastasis and bilateral hydr onephrosis. Bone scan showed diffuse ostial metastasis in the spine. 09/15/2019 Patient is currently sitting in the bed and is very anxious. Currently patient is in the general medical floor. Hemoglobin is fairly stable Gen. surgery is planning for right breast biopsy today. Patient is being co ntinued on IV hydration due to acute kidney injury and creatinine level slightly improved to 5.23. Patient was seen by urology due to bilateral hydronephrosis. No immediate intervention Coumadin at this time. Patient is being continued on Dillard catheter. Chest x-ray showed increasing right basilar opacity and new left perihilar opacity with stable retrocardiac opacity. Possible pulmonary edema versus multifocal pneumonia. CT of the chest showed diffuse emphysematous matter changes. No evidence of pneumonia. No complex of cough or sputum production. Currently saturating well on oxygen via nasal cannula. Patient is being followed by pulmonary, general surgery, urology, nephrology and oncology as well. Active Medications Acetaminophen (Tylenol Tab) 650 mg PO Q6HR PRN PRN Reason: Mild Pain or Fever > 100.5 Last Admin: 09/15/19 04:05 Dose: 650 mg Documented by: Hydrocodone Bitart/Acetaminophen (Laurel 5-325) 1 each PO Q6HR PRN PRN Reason: Pain Last Admin: 09/15/19 22:36 Dose: 1 each Documented by: Albuterol/Ipratropium (Duoneb 0.5 Mg-3 Mg/3 Ml Soln) 3 ml INHALATION RT-TID [facility]ANNA Last Admin: 09/15/19 21:13 Dose: Not Given Documented by: Albuterol/Ipratropium (Duoneb 0.5 Mg-3 Mg/3 Ml Soln) 3 ml INHALATION RT-TID PRN PRN Reason: Shortness Of Breath Or Wheezing Alprazolam (Xanax) 0.25 mg PO TID PRN PRN Reason: Anxiety Last Admin: 09/15/19 17:22 Dose: 0.25 mg Documented by: Dexamethasone Sodium Phosphate (Decadron) 4 mg IV Q6HR [facility] Last Admin: 09/15/19 17:20 Dose: 4 mg Documented by: Heparin Sodium (Porcine) (Heparin) 5,000 unit SQ Q12HR [facility] Last Admin: 09/15/19 20:44 Dose: 5,000 unit Documented by: Sodium Chloride (Saline 0.9%) 1,000 mls @ 60 mls/hr IV .[id number] [facility] Last Admin: 09/15/19 13:26 Dose: 60 mls/hr Documented by: Ceftriaxone Sodium 1 gm/ (Sodium Chloride) 50 mls @ 100 mls/hr IVPB Q24HR [facility] Last Admin: 09/15/19 07:56 Dose: 100 mls/hr Documented by: Sodium Bicarbonate 150 ml/ (Dextrose/Water) 1,150 mls @ 100 mls/hr IV .[id number] [facility] Last Admin: 09/15/19 13:24 Dose: 100 mls/hr Documented by: Naloxone HCl (Narcan) 0.2 mg IV Q2M PRN PRN Reason: Opioid Reversal Nicotine (Habitrol 14mg/24hr Patch) 1 patch TRANSDERM DAILY [facility] Last Admin: 09/15/19 07:56 Dose: 1 patch Documented by: Pantoprazole Sodium (Protonix) 40 mg PO AC-BRKFST [facility] Last Admin: 09/15/19 07:56 Dose: 40 mg Documented by: Objective - Vital Signs Vital signs: Vital Signs Temp 97.4 F L 09/15/19 13:46 Pulse 74 09/15/19 13:46 Resp 18 09/15/19 13:46 BP 160/79 09/15/19 13:46 Pulse Ox 93 L 09/15/19 13:46 Intake & Output 09/14/19 09/15/19 09/15/19 18:59 06:59 18:59 Intake Total 730 3000 3610 Output Total 360 1800 Balance 370 3000 1810 Weight 55.9 kg Intake: IV 730 1920 660 Dextrose 5% in Water 1, 100 1200 000 ml @ 100 mls/hr IV . [id number] [facility] with Sodium Bicarb (1 Meq/ml) 150 ml Rx#:[id number] Sodium Chloride 0.9% 1, 630 720 660 000 ml @ 60 mls/hr IV . [id number] [facility] Rx#:[id number] Intake, IV Titration 1800 Amount Dextrose 5% in Water 1, 1800 000 ml @ 100 mls/hr IV . [id number] [facility] with Sodium Bicarb (1 Meq/ml) 150 ml Rx#:[id number] Oral 1080 1150 Output: Urine 360 1800 Other: Voiding Method Indwelling Catheter Indwelling Catheter Indwelling Catheter # Voids 1 # Bowel Movements 2 1 1 - Exam PHYSICAL EXAMINATION: Patient is lying in the bed comfortably, no acute distress, awake alert and oriented.. HEENT: Normocephalic. Neck is supple. Pupils reactive. Nostrils clear. Oral cavity is moist. Ears reveal no drainage. Neck reveals no JVD, carotid bruits, or thyromegaly. CHEST EXAMINATION: Trachea is central. Right-sided breast mass with induration. Symmetrical expansion. Bibasilar crackles. Lung quintanilla clear to auscultation and percussion. CARDIAC: Normal S1, S2 with no gallops. No murmurs ABDOMEN: Soft. Bowel sounds normal. No organomegaly. No abdominal bruits. Extremities: reveal no edema. No clubbing or cyanosis Neurologically awake, alert, oriented x3 with well-coordinated movements. No f ocal deficits noted Skin: No rash or skin lesions. Psychiatric: Coperative. Nonsuicidal. Anxious. Musculoskeletal: No joint swelling or deformity. Normal range of motion. - Labs CBC & Chem 7: 09/15/19 08:07 09/15/19 08:07 Labs: Abnormal Lab Results - Last 24 Hours (Table) 09/13/19 09/13/19 09/15/19 Range/Units 16:39 16:39 08:07 RBC 2.93 L (3.80-5.40) m/uL Hgb 8.4 L (11.4-16.0) gm/dL Hct 25.9 L (34.0-46.0) % RDW 17.2 H (11.5-15.5) % Plt Count 79 L (150-450) k/uL Lymphocytes # 0.8 L (1.0-4.8) k/uL Sodium (137-145) mmol/L BUN (7-17) mg/dL Creatinine (0.52-1.04) mg/dL Glucose (74-99) mg/dL CA 15-3 Antigen 641.2 H (0.0-32.3) U/mL CA 27-29 625.3 H (0.0-38.5) U/mL 09/15/19 Range/Units 08:07 RBC (3.80-5.40) m/uL Hgb (11.4-16.0) gm/dL Hct (34.0-46.0) % RDW (11.5-15.5) % Plt Count (150-450) k/uL Lymphocytes # (1.0-4.8) k/uL Sodium 135 L (137-145) mmol/L BUN 80 H (7-17) mg/dL Creatinine 5.23 H (0.52-1.04) mg/dL Glucose 134 H (74-99) mg/dL CA 15-3 Antigen (0.0-32.3) U/mL CA 27-29 (0.0-38.5) U/mL Microbiology - Last 24 Hours (Table) 09/13/19 22:45 Urine Culture - Final Urine,Voided 09/13/19 15:50 Blood Culture - Preliminary Blood No Growth after 24 hours Assessment and Plan Assessment: Possible right breast cancer with metastasis to bones. Status post biopsy today Anemia likely due to underlying malignancy/anemia of chronic disease. No evidence of active GI bleed. Bilateral hydronephrosis Acute kidney injury likely due to obstructive uropathy and prerenal. Possible ATN. Currently slightly improved to 5.23 creatinine Acute urinary tract infection History of alcohol abuse Hypothyroidism History of hernia repair Depression History of nicotine dependence COPD Thrombocytopenia DVT prophylaxis Patient will be continued on gentle hydration and monitor fluid status. Continue to monitor creatinine level and transfuse PRBC with a hemoglobin level is less than 7 Patient is being continued on bronchodilators and antibiotics forurinary tract infection in the form of ceftriaxone. Follow-up culture reports. Follow-up breast biopsy report and further recommendations based on the clinical course. Prognosis poor with metastatic cancer and multiple medical problems and comorbid conditions. Time with Patient: Greater than 30
[2019-09-16] MEDS: HYDROcodone/APAP 5-325MG 1 EACH TAB PO PRN ×2 (04:35→20:34)
[2019-09-16] MEDS: ALPRAZolam 0.25 MG TAB PO PRN ×2 (04:35→20:34)
[2019-09-16] MEDS: DEXTROSE 5% IN WATER 1,000 ML with SODIUM BICARB (1 MEQ/ML) 150 ML IV SCH ×2 (04:35→11:02)
[2019-09-16] MEDS: DEXAMETHASONE SOD PHOSPHATE 4 MG/ML 1 ML VIAL IV SCH ×3 (05:21→18:40)
[2019-09-16] MEDS: IPRATROPIUM-ALBUTEROL 3 ML NEB INHALATION SCH ×3 (08:14→19:53)
[2019-09-16 09:11] LABS: Anisocytosis Slight; Basophils # (A) 0.2 k/uL (0-0.2); Basophils % (A) 2 %; Eosinophils % (A) 0 %; HCT 27.7 % (34.0-46.0); HGB 8.9 gm/dL (11.4-16.0); Hypochromasia Slight; Lymphocytes # (A) 0.8 k/uL (1.0-4.8); Lymphocytes % (A) 7 %; MCH 28.8 pg (25.0-35.0); MCHC 32.3 g/dL (31.0-37.0); MCV 89.1 fL (80.0-100.0); Mean Platelet Volume 9.1; Monocytes # (A) 0.3 k/uL (0-1.0); Monocytes % (A) 3 %; Neutrophils # (A) 9.2 k/uL (1.3-7.7); Neutrophils % (A) 86 %; Poikilocytosis Slight; RBC 3.11 m/uL (3.80-5.40); RDW 17.1 % (11.5-15.5); WBC 10.7 k/uL (3.8-10.6)
[2019-09-16 09:19] LABS: Platelet Count 93 k/uL (150-450)
[2019-09-16 09:21] LABS: Calcium 8.4 mg/dL (8.4-10.2); Potassium 4.8 mmol/L (3.5-5.1)
--- NOTE | 2019-09-16 09:26 | XR ---
EXAMINATION TYPE: XR chest 1V DATE OF EXAM: 09/16/2019 COMPARISON: 09/15/2019 HISTORY: COPD with shortness of breath TECHNIQUE: Single frontal view of the chest is obtained. FINDINGS: There are bilateral patchy opacities at the lung bases and increasing opacity at the left midlung. Cardiomediastinal silhouette is stable. Trace pleural effusions are seen, left greater than right. Extensive diffuse mottled appearance of the bone marrow throughout indicative of diffuse osseo us metastasis. IMPRESSION: Increasing multifocal opacities with trace bilateral pleural effusions. Consider multifo lidia pneumonia.
[2019-09-16] MEDS: NICOTINE 14MG/24HR PATCH TRANSDERM SCH (11:00)
[2019-09-16] MEDS: PANTOPRAZOLE 40 MG TABLET PO SCH (11:00)
[2019-09-16] MEDS: HEPARIN SODIUM,PORCINE 5,000 UNIT/ML 1 ML VIAL SQ SCH ×2 (11:01→20:34)
--- NOTE | 2019-09-16 13:01 | P.PN ---
Subjective Progress Note Date: 09/16/19 Principal diagnosis: breast mass, bone lesions In f/u today pt is rather lethargic, she answered a few questions-no nausea, pain-we discussed the results of the MRI of the cervical spine, pending breast biopsy results Objective - Vital Signs Vital signs: Vital Signs Temp 97.6 F 09/16/19 11:49 Pulse 108 H 09/16/19 12:35 Resp 18 09/16/19 11:49 BP 178/92 09/16/19 11:49 Pulse Ox 91 L 09/16/19 11:49 Intake & Output 09/15/19 09/16/19 09/16/19 18:59 06:59 18:59 Intake Total 3610 4720 Output Total 2150 1200 600 Balance 1460 3520 -600 Intake: IV 660 1240 Dextrose 5% in Water 1, 1000 000 ml @ 100 mls/hr IV . [id number] [facility] with Sodium Bicarb (1 Meq/ml) 150 ml Rx#:[id number] Sodium Chloride 0.9% 1, 660 240 000 ml @ 60 mls/hr IV . [id number] [facility] Rx#:[id number] Intake, IV Titration 1800 Amount Dextrose 5% in Water 1, 1800 000 ml @ 100 mls/hr IV . [id number] [facility] with Sodium Bicarb (1 Meq/ml) 150 ml Rx#:[id number] Oral 1150 3480 Output: Urine 2150 1200 600 Other: Voiding Method Indwelling Catheter Indwelling Catheter Indwelling Catheter # Voids 1 2 # Bowel Movements 1 - Constitutional Constitutional Comment(s): lethargic, NAD General appearance: Present: thin - EENT Eyes: Present: anicteric sclerae ENT: Present: hearing grossly normal - Respiratory Respiratory: bilateral: diminished - Cardiovascular Rhythm: regular Heart sounds: normal: S1, S2 Abnormal Heart Sounds: Absent: systolic murmur, diastolic murmur, rub, S3 Gallop, S4 Gallop, click, other - Peripheral edema leg Peripheral Edema: bilateral: None - Gastrointestinal General gastrointestinal: Present: normal bowel sounds, soft. Absent: absent bowel sounds, decreased bowel sounds, distended, hepatomegaly, hyperactive bowel sounds, organomegaly, rigid, scaphoid, splenomegaly, tenderness, umbilical h ernia, ventral hernia - Musculoskeletal Musculoskeletal: Present: generalized weakness - Psychiatric Psychiatric Comment(s): Lethargic, arousable with voice and touch - Labs CBC & Chem 7: 09/16/19 08:11 09/16/19 08:11 Labs: Abnormal Lab Results - Last 24 Hours (Table) 09/16/19 09/16/19 Range/Units 08:11 08:11 WBC 10.7 H (3.8-10.6) k/uL RBC 3.11 L (3.80-5.40) m/uL Hgb 8.9 L (11.4-16.0) gm/dL Hct 27.7 L (34.0-46.0) % RDW 17.1 H (11.5-15.5) % Plt Count 93 L (150-450) k/uL Neutrophils # 9.2 H (1.3-7.7) k/uL Lymphocytes # 0.8 L (1.0-4.8) k/uL Sodium 136 L (137-145) mmol/L Chloride 96 L (98-107) mmol/L BUN 83 H (7-17) mg/dL Creatinine 4.33 H (0.52-1.04) mg/dL Glucose 113 H (74-99) mg/dL Microbiology - Last 24 Hours (Table) 09/13/19 15:50 Blood Culture - Preliminary Blood No Growth after 48 hours 09/13/19 22:45 Urine Culture - Final Urine,Voided - Imaging and Cardiology MRI cervical spine report reviewed Assessment and Plan (1) Breast mass Narrative/Plan: Pt had breast masses identified a month ago, states stresses in her life have kept her from following up. IR performed biopsy. Specimen will be sent for HR, Her2 and NGS testing. Tumor markers returned both >600 Bone mets incidentally found. NM bone scan reported as metastatic disease widespread in both axial and appendicular skeleton. Dex started. MRI spine ord ered because of incontinence and concerns for cord compression, cervical spine completed, interestingly, no mets reported. PTH ordered, pending completion of spine MRI Current Visit: Yes Status: Acute Priority: High Code(s): N63.0 - UNSPECIFIED LUMP IN UNSPECIFIED BREAST SNOMED Code(s): 96185212 (2) Anemia Narrative/Plan: Anemia is likely multifactorial, noted as far back as 2016. Pt has received 3 units of PRBCs with appropriate increase in Hgb, stable as of today. This is going to alter iron studies and there was no blood available from prior to transfusion to order anemia work up on, so, will wait Transfuse to keep Hgb 7 or greater. Current Visit: Yes Status: Acute Priority: High Code(s): D64.9 - ANEMIA, UNSPECIFIED SNOMED Code(s): 362232744 (3) Acute renal failure Narrative/Plan: Nephrology is following, Urology consulted, improving Current Visit: Yes Status: Acute Priority: High Code(s): N17.9 - ACUTE KIDNEY FAILURE, UNSPECIFIED SNOMED Code(s): 14117193 Plan: All of the above was discussed with pt, she did seem to understand that we are ongoing in working her up. Pt has numerous social complexities that need to be addressed. D/W CM and RN Pt needs PCP that accepts her insurance and can make referrals for her. We are seeking to ask Dr. Padilla for his care as pt insurance is accepted by him. At this time, we are unable to offer patient treatment until her social issues have been addressed-patient is currently homeless. We would also want patient has every opportunity to rehabilitate and get herself stronger. So, we would delay treatment until she could have this opportunity. We will continue to follow with patient very closely and update her as more information becomes available.
--- NOTE | 2019-09-16 17:03 | CDI ---
Documentation Clarification Form Date: 09/16/2019 04:33:29 PM From: Charmaine Aguero RN, CCDS Admit Date: 09/13/2019 05:24:00 PM Patient Name: Leslie Gant Visit Number: [id number] Discharge Date: ATTENTION: The Clinical Documentation Specialists (CDI) and [facility] Coding Staff appreciate your assistance in clarifying documentation. Please respond to the clarification below the line at the bottom and electronically sign. The CDI & [facility] Coding staff will review the response and follow-up if needed. Please note: Queries are made part of the Legal Health Record. If you have any questions, please contact the author of this message via ITS. Dr. Helen Montenegro Malnutrition has been documented in nutritional assessment on 09/14/19 at 10:40, the following information has been taken from this assessment and further clarification of specificity is needed. History/Risk Factors: Metastatic breast Cancer, Renal Failure, Every day smoker, Alcohol abuse Clinical Indicators: 49-year-old female present with complaints of weakness. In the nutrition history she reports her appetite has been poor greater than 6 months. 09/13/19 ER assessment notes she is cachetic with lab studies revealing hemoglobin of 4.5, BUN 88, Creatinine 6.88 on admission. Labs: 09/14/19@ 07:59: Total Protein 6.0, Albumin 3.1 Current BMI: 19.9 Insufficient energy intake: yes, intake <75% calorie intake >1 month: Loss of subcutaneous fat: severe muscle and fat depletion Loss of muscle mass: severe muscle and fat depletion Treatment: Dietary Consult: Yes Monitor PO, supplement intake Supplements: General /healthful diet, Enlive TID Lab monitoring: CBC, Lytes, BUN, CR .9 Saline 1000 ml IV bolus then 0.9 at 60 mls/hr IV Transfuse 3 units pack red blood cells In your professional opinion, can you please clarify if these findings signify one of the following conditions? Mild Protein-Calorie Malnutrition Moderate Protein-Calorie Malnutrition Severe Protein-Calorie Malnutrition Other condition, please specify Unable to determine (Last Revision: February 2019) Moderate Protein-Calorie Malnutrition MTDD
--- NOTE | 2019-09-16 17:35 | PN ---
PROGRESS NOTE Patient is seen for followup for acute kidney injury, obstructive in nature, with a component of ATN. Patient is maintained on IV fluids. Renal function has improved somewhat, with creatinine down to 4.3 from 6.8 on initial admission. Ultrasound shows bilateral hydronephrosis. Urology has seen the patient. There are plans for possible ureteral stent placement down the road. Currently patient is being worked up for right breast cancer, which appears to be metastatic. PHYSICAL EXAMINATION: On examination today, blood pressure is 163/81, heart rate of 101 per minute. Patient is afebrile. EXAMINATION OF THE HEART: S1 and S2. EXAMINATION OF LUNGS: Bilateral breath sounds are heard. ABDOMEN: Soft, non-tender. Examination of lower extremities shows no significant edema. LABS: Hemoglobin 8.9, sodium 136, potassium 4.8, chloride 96, BUN 83, creatinine 4.3. UA shows WBCs more than 182. Urine culture shows no growth. ASSESSMENT: 1. Acute kidney injury, obstructive uropathy, with possibly a component of acute tubular necrosis as well. Ultrasound shows bilateral hydronephrosis. Renal function has been slowly improving. We will continue to monitor. Patient will definitely need cystoscopy and further workup down the road. 2. Right breast cancer with metastasis. 3. Metabolic acidosis, currently improved with IV bicarb. PLAN: Discontinue IV bicarb. May continue with IV fluids. Avoid nephrotoxic agents. Repeat labs in a.m. MMODL / IJN: [id number] /
--- NOTE | 2019-09-16 20:05 | PN ---
PROGRESS NOTE DATE OF SERVICE: 09/16/2019 This 49-year-old woman was admitted with features of right breast cancer as well as multiple metastases. The patient had a cervical spine MRI today which showed no evidence of any metastatic disease. The bone scan showed possible multiple metastases. The breast core needle biopsy findings are pending at this time. The patient had multiple laboratory abnormalities, including renal failure with creatinine of 4.33, which is improved slightly. The intact PTH is elevated. The calcium is normal. The patient also had a possible UTI. The cultures are negative so far. The patient is being closely monitored. PT/OT is evaluating the patient closely. Patient complains of some tiredness. The patient had a history of noncompliance. Patient is confused as well. Past medical history reviewed. REVIEW OF SYSTEMS: CARDIOVASCULAR SYSTEM: No angina, palpitations. RESPIRATORY SYSTEM: As mentioned earlier. GI: As mentioned earlier. : No dysuria or retention. NERVOUS SYSTEM: No numbness, weakness. CURRENT MEDICATIONS: Reviewed. They include: 1. Tylenol 650 q.6 p.r.n. 2. [place] 5 mg q.6 p.r.n. 3. DuoNeb q.i.d. and p.r.n. 4. Xanax 0.25 t.i.d. 5. Rocephin 1 gram IV daily. 6. Dexamethasone 4 mg IV q.6. 7. Heparin 5000 units subcutaneously b.i.d. 8. Narcan p.r.n. 9. Habitrol 14 daily. 10.Protonix. PHYSICAL EXAMINATION: Patient is alert, oriented x Pulse is 102, blood pressure 178/92, respiration 18, temperature 97.6, pulse ox 91% on room air. HEENT: Conjunctivae normal. Oral mucosa moist. NECK: No jugular venous distention. No carotid bruit. lymph node enlargement. CARDIOVASCULAR SYSTEM: S1, S2 muffled. RESPIRATORY SYSTEM: Breath sounds diminished at the bases. Bilateral scattered rhonchi and crackles. ABDOMEN: Soft, non-tender. No mass palpable. LEGS: No edema. No swelling. NERVOUS SYSTEM: Diffusely weak and emaciated. LABS: Lab investigations at this time show WBC 10.7, hemoglobin 8.9, sodium 136 and creatinine is 4.33. The intact noted. Cultures are negative. ASSESSMENT: 1. Acute severe anemia on presentation, multifactorial, secondary to nutritional as well as secondary to malignancy, severe, status post blood transfusion, present on admission. No evidence of any active GI bleeding at this time. 2. Right breast cancer with diffuse metastases. 3. Urinary tract infection, present on admission. 4. Bilateral hydronephrosis. 5. Renal failure, possible acute renal failure with prerenal acute tubular necrosis as well as postrenal obstructive, possibly obstructive renal failure combined with acute tubular necrosis, multifactorial. 6. History of ethanol abuse. 7. Hypothyroidism. 8. History of noncompliance. 9. History of hernia repair. 10.History of depression. 11.History of nicotine dependence. 12.Severe protein-calorie malnutrition. 13.History of section. 14.Chronic obstructive pulmonary disease. 15.Hyponatremia. 16.Anemia. 17.Thrombocytopenia. 18.Elevated PTH. 19.Gait dysfunction. 20.FULL CODE. RECOMMENDATIONS AND DISCUSSION: In this 49-year-old woman who presented with multiple complex medical issues, we will monitor the patient closely, continue the current medications, continue with symptomatic treatment. Continue the bronchodilators, empiric antibiotics, PT/OT evaluation, possible ECF rehab. Await biopsy report. Repeat labs. Otherwise, input from multiple consultants appreciated. Guarded prognosis. Further recommendations to follow. MMODL / IJN: [id number] / JUAN
[2019-09-16] MEDS: SODIUM CHLORIDE 0.9% 1,000 ML IV SCH (22:31)
[2019-09-17] MEDS: DEXAMETHASONE SOD PHOSPHATE 4 MG/ML 1 ML VIAL IV SCH ×4 (00:05→16:07)
[2019-09-17] MEDS: IPRATROPIUM-ALBUTEROL 3 ML NEB INHALATION SCH ×3 (07:35→20:21)
[2019-09-17 07:40] LABS: Anisocytosis Slight; Basophils # (A) 0.1 k/uL (0-0.2); Basophils % (A) 1 %; Eosinophils % (A) 1 %; HGB 8.1 gm/dL (11.4-16.0); Hypochromasia Slight; Lymphocytes # (A) 0.5 k/uL (1.0-4.8); Lymphocytes % (A) 7 %; MCH 27.9 pg (25.0-35.0); MCV 89.8 fL (80.0-100.0); Mean Platelet Volume 8.3; Monocytes # (A) 0.3 k/uL (0-1.0); Monocytes % (A) 4 %; Neutrophils % (A) 86 %; Poikilocytosis Slight; RDW 17.1 % (11.5-15.5)
[2019-09-17 07:43] LABS: Platelet Count 80 k/uL (150-450)
[2019-09-17 07:57] LABS: Calcium 8.1 mg/dL (8.4-10.2); Potassium 5.4 mmol/L (3.5-5.1)
[2019-09-17] MEDS: NICOTINE 14MG/24HR PATCH TRANSDERM SCH (09:24)
[2019-09-17] MEDS: ALPRAZolam 0.25 MG TAB PO PRN (09:25)
[2019-09-17] MEDS: HEPARIN SODIUM,PORCINE 5,000 UNIT/ML 1 ML VIAL SQ SCH ×2 (09:25→21:09)
[2019-09-17] MEDS: PANTOPRAZOLE 40 MG TABLET PO SCH (09:25)
[2019-09-17] MEDS: SODIUM CHLORIDE 0.9% 1,000 ML IV SCH (09:26)
[2019-09-17] MEDS: CALCIUM ACETATE 667 MG TAB PO SCH ×2 (11:37→16:07)
--- NOTE | 2019-09-17 17:25 | P.PN ---
Subjective Progress Note Date: 09/17/19 Principal diagnosis: breast mass, bone lesions In f/u today pt is awake, rather angry and frustrated, she does not want to have any more MRIs, hard for her to lay flat due to pain in the back and the "tube" makes her very nervous. She denied fever, nausea, she is incontinent of stool and urine, pending breast biopsy results Objective - Vital Signs Vital signs: Vital Signs Temp 98.2 F 09/17/19 11:49 Pulse 103 H 09/17/19 15:56 Resp 18 09/17/19 15:56 BP 150/82 09/17/19 11:49 Pulse Ox 93 L 09/17/19 11:49 Intake & Output 09/16/19 09/17/19 09/17/19 18:59 06:59 18:59 Intake Total 120 1590 400 Output Total 800 1000 2200 Balance -680 590 -1800 Weight 55.9 kg Intake: IV 400 Dextrose 5% in Water 1, 400 000 ml @ 100 mls/hr IV . [id number] ALANNA with Sodium Bicarb (1 Meq/ml) 150 ml Rx#:[id number] Intake, IV Titration 480 Amount Sodium Chloride 0.9% 1, 480 000 ml @ 60 mls/hr IV . [id number] ALANNA Rx#:[id number] Oral 120 710 400 Output: Urine 800 1000 2200 Other: Voiding Method Indwelling Catheter Indwelling Catheter Indwelling Catheter # Voids 2 1 3 # Bowel Movements 1 - Constitutional General appearance: Present: mild distress, thin - EENT Eyes: Present: anicteric sclerae, EOMI ENT: Present: hearing grossly normal - Respiratory Respiratory: bilateral: diminished - Cardiovascular Rhythm: regular Heart sounds: normal: S1, S2 Abnormal Heart Sounds: Absent: systolic murmur, diastolic murmur, rub, S3 Gallop, S4 Gallop, click, other - Peripheral edema leg Peripheral Edema: bilateral: None - Gastrointestinal General gastrointestinal: Present: normal bowel sounds, soft - Neurologic Neurologic Comment(s): BLE strength is maintained, mildly weak, no peripheral numbness or tingling. S itting forward causes pain in the lower back, n palpable masses on the spine - Musculoskeletal Musculoskeletal: Present: generalized weakness - Psychiatric Psychiatric: Present: A&O x's 3. Absent: appropriate affect - Labs CBC & Chem 7: 09/17/19 07:07 09/17/19 07:07 Labs: Abnormal Lab Results - Last 24 Hours (Table) 09/16/19 09/17/19 09/17/19 Range/Units 08:43 07:07 07:07 RBC 2.90 L (3.80-5.40) m/uL Hgb 8.1 L (11.4-16.0) gm/dL Hct 26.0 L (34.0-46.0) % RDW 17.1 H (11.5-15.5) % Plt Count 80 L (150-450) k/uL Lymphocytes # 0.5 L (1.0-4.8) k/uL Sodium 135 L (137-145) mmol/L Potassium 5.4 H (3.5-5.1) mmol/L Chloride 96 L (98-107) mmol/L BUN 94 H (7-17) mg/dL Creatinine 4.04 H (0.52-1.04) mg/dL Glucose 110 H (74-99) mg/dL Calcium 8.1 L (8.4-10.2) mg/dL PTH Intact 125.6 H (14.0-72.0) pg/mL Microbiology - Last 24 Hours (Table) 09/13/19 15:50 Blood Culture - Preliminary Blood No Growth after 72 hours - Imaging and Cardiology Cervical spine MRI report reviewed Chest x-ray report reviewed-possible pneumonia? Assessment and Plan (1) Breast mass Narrative/Plan: Pt had breast masses identified a month ago, states stresses in her life have kept her from following up. IR performed biopsy. Specimen will be sent for HR, Her2 and NGS testing. Tumor markers returned, both >600 Bone mets incidentally found. NM bone scan reported as metastatic disease widespread in both axial and appendicular skeleton. Dex started. MRI spine ordered because of incontinence and concerns for cord compression, cervical spine completed, interestingly, no mets reported. Pending completion of spine MRI which pt is now refusing-pain, fear. Case was discussed with Rad Onc. Radiation Oncologist did discuss with patient the importance of having a complete picture of her spine because if there is cord compression causing her incontinence she may need emergency surgery or radiation to relieve the incontinence. Patient verbalized understanding. We will order a CT of the thoracic and lumbar spine without contrast due to patient's ongoing renal failure. Current Visit: Yes Status: Acute Priority: High Code(s): N63.0 - U NSPECIFIED LUMP IN UNSPECIFIED BREAST SNOMED Code(s): 80914105 (2) Anemia Narrative/Plan: Anemia is likely multifactorial, noted as far back as 2017. Pt has received 3 units of PRBCs with appropriate increase in Hgb, stable as of today. This is going to alter iron studies and there was no blood available from prior to transfusion to order anemia work up on, so, will wait Transfuse to keep Hgb 7 or greater. Current Visit: Yes Status: Acute Priority: High Code(s): D64.9 - ANEMIA, UNSPECIFIED SNOMED Code(s): 946478587 (3) Acute renal failure Narrative/Plan: Nephrology is following, Urology consulted, improving slightly every day Current Visit: Yes Status: Acute Priority: High Code(s): N17.9 - ACUTE KIDNEY FAILURE, UNSPECIFIED SNOMED Code(s): 90956126 Plan: All of the above was discussed with pt, she did seem to understand the work up being done, concerns for cancer. She was aggressive and angry today. I know that there are many individuals trying to help her currently because of her complex social issues and I am not sure if pt completely understands the processes. Pt needs PCP that accepts her insurance and can make referrals for her, in process. At this time, we are unable to offer patient treatment until her social issues have been addressed-patient is currently homeless. We would also want patient has every opportunity to rehabilitate and get herself stronger. So, we would delay treatment until she could have this opportunity. We will continue to follow with patient very closely and update her as more information becomes available.
[2019-09-17] MEDS ORDERED: LORazepam 2 MG/ML INJ IV STA (17:31)
--- NOTE | 2019-09-17 18:19 | PN ---
PROGRESS NOTE DATE OF SERVICE: 09/17/2019 This 49-year-old was admitted with right breast cancer with possible secondary malignancy is being closely monitored at this time. The patient complains of tiredness and weakness. The patient also had renal failure. The creatinine is improved to 4.4 from 6.2. At the time of admission, patient had mild hyperkalemia and anemia. Hemoglobin is 8.1. PT index is also elevated. The core biopsy reports from the breast is pending at this time. Multiple consultants following the patient closely. Hematology/Oncology could not start the chemotherapy or consider any definite treatment unless the biopsy results available. The transition social worker and immigration case worker working on insurance situation as well. The patient apparently was basically homeless with significant problems with alcohol and recent passing of her spouse and the transition social worker is following the patient closely regarding all these issues. PAST MEDICAL HISTORY: Reviewed. REVIEW OF SYSTEMS: Cardiovascular system: No angina or palpitations. RESPIRATORY: As mentioned earlier. GASTROINTESTINAL: As mentioned earlier. no dysuria. Nervous system: No numbness or weakness. CURRENT MEDICATIONS: Reviewed and include: 1. Tylenol 650 q.6h p.r.n. 2. [place] 5 mg q.6h p.r.n. 3. DuoNeb q.i.d. and p.r.n. 4. Xanax 0.25 t.i.d. 5. PhosLo 667 t.i.d. 6. Rocephin 1 g IV daily. 7. Decadron 4 mg IV q.6h. 8. Heparin 5000 subcu b.i.d. 9. Narcan 0.2 q.2 p.r.n. 10.Habitrol. 11.Protonix. 12.Doses reviewed. PHYSICAL EXAM: Patient is alert, oriented x3. Pulse is is 103. Blood pressure is 150/82. Respirations 18. Temperature 98.2, pulse ox 93% on 3 L. HEENT: Conjunctivae pale. Oral mucosa moist. NECK is no jugular venous distention. No carotid bruit. No lymph node enlargement. Cardiovascular systems: S1, S2 muffled. RESPIRATIONS: Breath sounds diminished in the bases. Bilateral scattered rhonchi and crackles. Expiratory wheezing also present. ABDOMEN: Soft, scaphoid, nontender. No mass palpable. LEGS are no edema. No swelling. CENTRAL NERVOUS SYSTEM: No focal deficits. LABS: WBC 7. Hemoglobin 8.1, sodium 132, potassium 4.1, creatinine is 4.04. ASSESSMENT: 1. Acute severe anemia, present on admission, multifactorial secondary to nutrition as well as secondary malignancy, severe, status post blood transfusion, present on admission. No evidence of any active gastrointestinal bleeding at this time. 2. Right breast cancer with diffuse metastasis, status post core biopsy. 3. Urinary tract infection, present on admission. 4. Bilateral hydronephrosis. 5. Change in mental status, acute metabolic encephalopathy multifactorial. 6. Renal failure possible acute renal failure with prerenal acute tubular necrosis as well as postrenal obstructive with possibly obstructive renal failure combined with acute tubular necrosis multifactorial. 7. History of ETOH abuse. 8. Hypothyroidism. 9. History of noncompliance. 10.History of depression. 11.History of nicotine dependence. 12.Severe protein-calorie malnutrition. 13.History of . 14.Chronic obstructive pulmonary disease. 15.Hyponatremia. 16.Anemia. 17.Thrombocytopenia. 18.Elevated PTH. 19.Gait dysfunction. 20.FULL CODE. RECOMMENDATIONS AND DISCUSSION: I recommend to continue current medications, continue with monitoring, symptomatic treatment. Otherwise at this time, continue the pain medications. PT/OT evaluation. We will await the pathology report regarding the biopsy report. Creatinine is also elevated. Repeat labs will be ordered. Closely follow with multiple consultants on the case. Further recommendations to follow. CARLOZ / JEFFY: [id number] /
--- NOTE | 2019-09-17 18:21 | PN ---
PROGRESS NOTE Patient is seen for followup for acute kidney injury. She is currently sitting up in bed. Patient denies any significant complaints. The patient has bilateral hydronephrosis. She has been evaluated by Urology and there are plans for possible ureteral stent placements down the road. Renal function had improved slightly since admission with creatinine going down to 4.0 from 6.8 initially. The patient has an indwelling Dillard catheter. She has had good urine output with 24 hour output noted at 1.8 L. The patient is maintained on IV fluids at about 60 mL an hour. She was also on bicarb drip which was discontinued yesterday. Patient has underlying right breast cancer with bony metastasis. PHYSICAL EXAMINATION: On examination, patient is comfortable. Blood pressure was 150/82, heart rate 103 per minute. She is afebrile. Examination of the heart S1, S2. Examination of the lungs, bilateral breath sounds are heard. Abdomen is soft, nontender. Examination of lower extremities shows no evidence of edema. COURT ADV[employer]ATE exam is grossly intact. The patient has been confused occasionally. She is moving all 4 extremities. LAB: Show sodium of 135, potassium 5.4, chloride 96, BUN 94, creatinine 4.0, serum calcium 8.1. ASSESSMENT: 1. Acute kidney injury, obstructive uropathy with perhaps an element of acute tubular necrosis which has now improved. However, patient's potassium is elevated now. She should undergo cystoscopy and ureteral stent placement for the severe bilateral hydronephrosis noted on the ultrasound. 2. Hyperkalemia associated with obstructive uropathy and advanced renal failure. 3. Hyperparathyroidism associated with renal failure, rule out nutrition vitamin D deficiency. 4. Metastatic breast cancer. 5. Metabolic acidosis status post IV bicarb. PLAN: Continue with normal saline. We will discuss with Urology regarding cystoscopy and ureteral stent placement, possibly early next week. Repeat labs in a.m. MMODL / IJN: [id number] /
--- NOTE | 2019-09-17 19:33 | CT ---
EXAMINATION TYPE: CT thor lumbar spine wo con DATE OF EXAM: 09/17/2019 COMPARISON: HISTORY: Back pain, R/O CA, Hx of breast CA CT DLP: 1225.5 mGycm Automated exposure control for dose reduction was used. Multiple axial sections were obtained from the level of T1-S3 vertebra without contrast. There is a diffuse osteoblastic change throughout the thoracic and lumbar and sacral vertebra. There are also multiple areas of osteolytic change. There are bilateral pleural effusions. Blastic changes are also present in the ribs. Blastic and lytic changes present throughout the visualized bony pelvis . There is no significant thoracic or lumbar compression deformity. IMPRESSION: Advanced osteolytic and osteoblastic change in the visualized bony structures consistent with advance d metastatic disease. Bilateral pleural effusions and basilar pulmonary atelectasis.
[2019-09-18] MEDS: DEXAMETHASONE SOD PHOSPHATE 4 MG/ML 1 ML VIAL IV SCH ×5 (00:28→23:50)
[2019-09-18] MEDS: SODIUM CHLORIDE 0.9% 1,000 ML IV SCH (06:03)
[2019-09-18 07:21] LABS: Anisocytosis Slight; Basophils # (A) 0.1 k/uL (0-0.2); Basophils % (A) 1 %; Eosinophils % (A) 0 %; HCT 25.8 % (34.0-46.0); HGB 8.3 gm/dL (11.4-16.0); Hypochromasia Slight; Lymphocytes # (A) 0.6 k/uL (1.0-4.8); Lymphocytes % (A) 9 %; MCV 90.6 fL (80.0-100.0); Monocytes # (A) 0.3 k/uL (0-1.0); Monocytes % (A) 4 %; Neutrophils # (A) 5.3 k/uL (1.3-7.7); Neutrophils % (A) 84 %; RBC 2.85 m/uL (3.80-5.40); RDW 16.9 % (11.5-15.5); WBC 6.3 k/uL (3.8-10.6)
[2019-09-18 07:22] LABS: Platelet Count 68 k/uL (150-450)
[2019-09-18] MEDS: IPRATROPIUM-ALBUTEROL 3 ML NEB INHALATION SCH ×3 (07:22→19:32)
[2019-09-18 07:34] LABS: Calcium 7.9 mg/dL (8.4-10.2); Potassium 5.8 mmol/L (3.5-5.1)
[2019-09-18] MEDS: CALCIUM ACETATE 667 MG TAB PO SCH ×3 (08:22→17:56)
[2019-09-18] MEDS: HEPARIN SODIUM,PORCINE 5,000 UNIT/ML 1 ML VIAL SQ SCH ×2 (08:22→21:09)
[2019-09-18] MEDS: NICOTINE 14MG/24HR PATCH TRANSDERM SCH (08:22)
[2019-09-18] MEDS: PANTOPRAZOLE 40 MG TABLET PO SCH (08:22)
--- NOTE | 2019-09-18 10:14 | PN ---
PROGRESS NOTE Patient is seen for followup for acute kidney injury. Her renal function remains impaired, with BUN up to 105 and serum potassium at 5.8 this morning. She has an indwelling Dillard catheter and has had good urine output. Ultrasound has shown bilateral hydronephrosis. Patient should get cystoscopy and ureteral stent placement. PHYSICAL EXAMINATION: On examination, blood pressure was 164/99, heart rate 93 per minute. Patient is afebrile. EXAMINATION OF THE HEART: S1 and S2. EXAMINATION OF LUNGS: Bilateral breath sounds are heard. ABDOMEN: Soft, non-tender. Examination of lower extremities shows edema 1+ bilaterally. 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 LABS: Sodium 135, potassium 5.8, chloride 98, BUN 105, serum creatinine 4.08. ASSESSMENT: 1. Acute kidney injury, obstructive uropathy; component of acute tubular necrosis, which has improved. However, serum creatinine remains elevated at 4 with progressive elevation in serum potassium and BUN. Patient should have a cystoscopy with ureteral stent placement. We will contact Urology. 2. Hyperkalemia associated with obstructive uropathy and advanced renal failure. We will treat medically. Maintain patient on low-potassium diet. 3. Hyperparathyroidism associated with renal failure. Check 25 hydroxy vitamin D level. Calcium is not elevated. 4. Metastatic breast cancer. 5. Severe metabolic acidosis, now improved. 6. Mild volume overload. I will discontinue the IV fluids. PLAN: Treat hyperkalemia with insulin and D50. Contact Urology for cystoscopy and ureteral stents. MMODL / IJN: [id number] /
[2019-09-18] MEDS ORDERED: INSULIN REGULAR 100 UNIT/ML VIAL IV ONE (10:48)
[2019-09-18] MEDS ORDERED: DEXTROSE 10 % IN WATER 250 ML IV STA (10:50)
--- NOTE | 2019-09-18 11:00 | P.PN ---
Subjective Progress Note Date: 09/18/19 The patient has metastatic breast ca. SHe has bilateral hydronephrosis A cath was placed and with hydration her cr went from [address] allen and I spoke and she probably needs cysto with bilateral retrograde pyelograms and stents. I spoke with the patient and she expressed interest I will see what the cr is tomorrow If it hasnt dropped anymore then Dr Qureshi or myself will set her up for cysto early next week. Objective - Vital Signs Vital signs: Vital Signs Temp 97.8 F 09/18/19 05:00 Pulse 103 H 09/18/19 07:32 Resp 20 09/18/19 05:00 BP 164/99 09/18/19 05:00 Pulse Ox 93 L 09/18/19 05:00 Intake & Output 09/17/19 09/18/19 09/18/19 18:59 06:59 18:59 Intake Total 400 Output Total 2200 1500 Balance -1800 -1500 Weight 55.9 kg Intake: Oral 400 Output: Urine 2200 1500 Other: Voiding Method Indwelling Catheter Indwelling Catheter Indwelling Catheter # Voids 3 # Bowel Movements 1 - Labs CBC & Chem 7: 09/18/19 06:43 09/18/19 06:43 Labs: Abnormal Lab Results - Last 24 Hours (Table) 09/18/19 09/18/19 Range/Units 06:43 06:43 RBC 2.85 L (3.80-5.40) m/uL Hgb 8.3 L (11.4-16.0) gm/dL Hct 25.8 L (34.0-46.0) % RDW 16.9 H (11.5-15.5) % Plt Count 68 L (150-450) k/uL Lymphocytes # 0.6 L (1.0-4.8) k/uL Sodium 135 L (137-145) mmol/L Potassium 5.8 H (3.5-5.1) mmol/L BUN 105 H* (7-17) mg/dL Creatinine 4.08 H (0.52-1.04) mg/dL Glucose 105 H (74-99) mg/dL Calcium 7.9 L (8.4-10.2) mg/dL Microbiology - Last 24 Hours (Table) 09/13/19 15:50 Blood Culture - Preliminary Blood No Growth after 96 hours
[2019-09-18] MEDS: HYDROcodone/APAP 5-325MG 1 EACH TAB PO PRN (11:37)
--- NOTE | 2019-09-18 16:40 | PN ---
PROGRESS NOTE DATE OF SERVICE: 09/18/2019 This 49-year-old woman who was admitted with acute severe anemia also had suspected breast cancer with multiple malignancies. The patient is confused. The patient had a thoracolumbar spine CT scan today. The patient also had renal failure, which is improving. The CT scan showed multiple osteolytic and osteoblastic changes, indicating significant advanced metastatic disease. PHYSICAL EXAMINATION: Alert and oriented x3. Pulse is 100, blood pressure 149/93, respiration 20, temperature 97.6, pulse ox 92% on 3 L. HEENT: Conjunctivae normal. NECK: No jugular venous distention. CARDIOVASCULAR SYSTEM: S1, S2 muffled. RESPIRATORY SYSTEM: Breath sounds diminished at the bases. A few scattered rhonchi and crackles. ABDOMEN: Soft, non-tender. LEGS: No edema. No swelling. NERVOUS SYSTEM: Diffusely weak. LABS: WBC 6.3, hemoglobin 8.3, creatinine 4.08. PTH intact is 125. ASSESSMENT: 1. Acute severe anemia, present on admission, multifactorial, secondary to nutritious as well as secondary to malignancy, severe, status post blood transfusion, present on admission. No evidence of an active GI bleed. 2. Right breast cancer with diffuse metastases, status post core biopsy. 3. Diffuse skeletal metastases and back pain. 4. Urinary tract infection, present on admission. 5. Bilateral hydronephrosis. 6. Change in mental status, acute metabolic encephalopathy, multifactorial. 7. Acute renal failure, possibly acute tubular necrosis as well as possibly post- obstructive uropathy with acute tubular necrosis, multifactorial. 8. History of ethanol abuse. 9. Severe protein-calorie malnutrition. 10.Hypothyroidism. 11.History of noncompliance. 12.History of depression. 13.History of nicotine dependence. 14.History of section. 15.Chronic obstructive pulmonary disease. 16.Hyponatremia. 17.Anemia. 18.Thrombocytopenia. 19.Elevated PTH. 20.Gait dysfunction. 21.Hyperkalemia. 22.FULL CODE. RECOMMENDATIONS AND DISCUSSION: In this 49-year-old woman who presented with multiple complex medical issues, we will monitor the patient closely, continue the current medications, continue with symptomatic treatment. Otherwise, biopsy has been done. The potassium is elevated. Will continue with insulin/glucose regimen. Nephrology has been consulted. Avoid nephrotoxic medications. PT/OT evaluation and possible ECF rehab. Patient also had a home situation. The patient is apparently homeless. Will continue to monitor. Further recommendations to follow. See orders for further details. MMODL / IJN: [id number] /
[2019-09-18 17:27] LABS: Protein, Total 4.7 g/dL (6.2-8.2)
[2019-09-18] MEDS: ACETAMINOPHEN TAB 325 MG TAB PO PRN (21:09)
[2019-09-18] MEDS: ALPRAZolam 0.25 MG TAB PO PRN (21:09)
[2019-09-19] MEDS: DEXAMETHASONE SOD PHOSPHATE 4 MG/ML 1 ML VIAL IV SCH ×4 (06:25→23:44)
[2019-09-19] MEDS: HYDROcodone/APAP 5-325MG 1 EACH TAB PO PRN ×2 (06:29→12:23)
[2019-09-19 07:25] LABS: Anisocytosis Slight; Basophils # (A) 0.1 k/uL (0-0.2); Basophils % (A) 1 %; Eosinophils % (A) 0 %; HCT 25.4 % (34.0-46.0); Hypochromasia Slight; Lymphocytes # (A) 0.6 k/uL (1.0-4.8); Lymphocytes % (A) 10 %; MCH 28.8 pg (25.0-35.0); MCHC 31.7 g/dL (31.0-37.0); MCV 90.8 fL (80.0-100.0); Mean Platelet Volume 8.7; Monocytes # (A) 0.2 k/uL (0-1.0); Monocytes % (A) 4 %; Neutrophils # (A) 5.4 k/uL (1.3-7.7); Neutrophils % (A) 83 %; RDW 16.9 % (11.5-15.5); WBC 6.5 k/uL (3.8-10.6)
[2019-09-19 07:33] LABS: Platelet Count 99 k/uL (150-450)
[2019-09-19 07:37] LABS: Calcium 8.4 mg/dL (8.4-10.2); Potassium 5.4 mmol/L (3.5-5.1)
[2019-09-19] MEDS: IPRATROPIUM-ALBUTEROL 3 ML NEB INHALATION SCH ×3 (08:25→19:47)
[2019-09-19] MEDS: PANTOPRAZOLE 40 MG TABLET PO SCH (09:42)
[2019-09-19] MEDS: CALCIUM ACETATE 667 MG TAB PO SCH ×3 (09:42→17:35)
[2019-09-19] MEDS: HEPARIN SODIUM,PORCINE 5,000 UNIT/ML 1 ML VIAL SQ SCH ×2 (09:42→20:20)
[2019-09-19] MEDS: NICOTINE 14MG/24HR PATCH TRANSDERM SCH (09:42)
--- NOTE | 2019-09-19 13:08 | P.PN ---
Subjective Progress Note Date: 09/19/19 The patient has bilateral hydronephrosis Her cr was 6 It came down to 4 and leveled. We were considering cysto with retrogrades however the cr ahas come down further to 3.2 Will c/w the [place] and see what the cr does Given her advanced metastatic breast ca, her lack of compliance if we can avoid surgery that would be preferable. Objective - Vital Signs Vital signs: Vital Signs Temp 98.2 F 09/19/19 04:54 Pulse 101 H 09/19/19 11:35 Resp 18 09/19/19 04:54 BP 149/80 09/19/19 04:54 Pulse Ox 92 L 09/19/19 04:54 Intake & Output 09/18/19 09/19/19 09/19/19 18:59 06:59 18:59 Intake Total 300 120 Output Total 1300 1400 Balance -1000 -1280 Intake: Intake, IV Titration 300 Amount Dextrose 10 % in Water 250 250 ml @ 999 mls/hr IV ONCE STA Rx#:[id number] cefTRIAXone 1 gm In 50 Sodium Chloride 0.9% 50 ml @ 100 mls/hr IVPB Q24HR [facility] Rx#:[id number] Oral 120 Output: Urine 1300 1400 Other: Voiding Method Indwelling Catheter Indwelling Catheter Indwelling Catheter - Labs CBC & Chem 7: 09/19/19 06:48 09/19/19 06:48 Labs: Abnormal Lab Results - Last 24 Hours (Table) 09/18/19 09/18/19 09/19/19 Range/Units 06:43 06:43 06:48 RBC 2.80 L (3.80-5.40) m/uL Hgb 8.0 L (11.4-16.0) gm/dL Hct 25.4 L (34.0-46.0) % RDW 16.9 H (11.5-15.5) % Plt Count 99 L (150-450) k/uL Lymphocytes # 0.6 L (1.0-4.8) k/uL Sodium (137-145) mmol/L Potassium (3.5-5.1) mmol/L BUN (7-17) mg/dL Creatinine (0.52-1.04) mg/dL Glucose (74-99) mg/dL Total Protein (PEP) 4.7 L (6.2-8.2) g/dL Vitamin D 25-Hydroxy 9.6 L (30.0-100.0) ng/mL 09/19/19 Range/Units 06:48 RBC (3.80-5.40) m/uL Hgb (11.4-16.0) gm/dL Hct (34.0-46.0) % RDW (11.5-15.5) % Plt Count (150-450) k/uL Lymphocytes # (1.0-4.8) k/uL Sodium 135 L (137-145) mmol/L Potassium 5.4 H (3.5-5.1) mmol/L BUN 99 H (7-17) mg/dL Creatinine 3.27 H (0.52-1.04) mg/dL Glucose 120 H (74-99) mg/dL Total Protein (PEP) (6.2-8.2) g/dL Vitamin D 25-Hydroxy (30.0-100.0) ng/mL Microbiology - Last 24 Hours (Table) 09/13/19 15:50 Blood Culture - Preliminary Blood No Growth after 120 hours
--- NOTE | 2019-09-19 15:41 | XR ---
EXAMINATION TYPE: XR chest 1V portable DATE OF EXAM: 09/19/2019 COMPARISON: 09/16/2019 HISTORY: Shortness of breath and congestive heart failure. TECHNIQUE: Single frontal view of the chest is obtained. FINDINGS: There are small bilateral layering pleural effusions increased size from the prior. Associ ated bibasilar airspace disease. Mild pulmonary vascular congestion. Cardiomediastinal silhouette is obscured but likely enlarged. Diffuse osseous metastasis again demonstrated. IMPRESSION: Increasing bilateral pleural effusions and associated bibasilar airspace disease. Worsen ing congestive heart failure.
[2019-09-19] MEDS ORDERED: FUROSEMIDE 10 MG/ML 4 ML VIAL IV STA (18:21)
--- NOTE | 2019-09-19 19:43 | PN ---
PROGRESS NOTE Patient is seen for followup for acute kidney injury. She has underlying metastatic breast cancer and had acute kidney injury on initial admission with evidence of bilateral severe hydronephrosis. The patient has been maintained on IV fluids. She has an indwelling Dillard catheter. Renal function improved to some degree with creatinine going down to about 4.0 from 6.8 on initial admission. However, her potassium has now been elevated. Urology is on consult. There is plan for possible cystoscopy and stent placement if renal function does not continue to improve. EXAMINATION: Today, patient is comfortable. Blood pressure is 148/85, heart rate 101 per minute. She is afebrile. Examination of the heart S1, S2. Examination of the lungs, bilateral breath sounds are heard. ABDOMEN: Soft, nontender. Examination of lower extremities shows edema 1+ bilaterally. [employer] exam grossly intact. LABS: Show sodium 135, potassium 5.4, chloride 98, CO2 is 27, BUN 99, creatinine 3.27, hemoglobin 8.0 g/dL. ASSESSMENT: 1. Acute kidney injury, acute tubular necrosis as well as obstructive uropathy. Ultrasound shows bilateral severe hydronephrosis. Patient is being followed by Urology. This morning the creatinine is down to 3.2 mg/dL. There is a possibility of bilateral stent placement if renal function does not continue to improve. Continue off IV fluids for now. Continue to avoid nephrotoxic agents. 2. Hyperkalemia associated with obstructive uropathy and renal failure, currently improved from yesterday. Maintain patient on low-potassium diet. 3. Metastatic breast cancer. 4. Severe anemia with a hemoglobin of around 3 on initial admission, status post packed RBCs transfusion. PLAN: Continue off IV fluids. Repeat labs in a.m. Continue to avoid nephrotoxic agents. A cystoscopy and ureteral stent placement if renal function does not continue to improve. MMODL / IJN: [id number] /
[2019-09-19] MEDS: ALPRAZolam 0.25 MG TAB PO PRN (20:20)
--- NOTE | 2019-09-19 21:05 | PN ---
PROGRESS NOTE DATE OF SERVICE: 09/19/2019 This is a 49-year-old woman was admitted with acute severe anemia also had possibly metastatic breast malignancy with diffuse METS also. The patient had multiple medical issues, including renal failure and CT scan showed multiple METS at this time, the patient being closely monitored. Patient also has history of ETOH, noncompliance also. The patient apparently homeless and PT/OT. pharmaceutical worker to evaluate the patient as well also. PAST MEDICAL HISTORY: Past medical history reviewed. PHYSICAL EXAMINATION: The patient is alert, oriented x2. Pulse is 115, blood pressure 148/82, respiration 20, temperature 97.3, pulse ox 98% on 4 L. HEENT is conjunctivae normal. NECK: No JVD. CARDIOVASCULAR: S1, S2 muffled. RESPIRATORY: Breath sounds diminished in the bases. Bilateral scattered rhonchi and crackles. ABDOMEN is soft, nontender. No mass palpable. LEGS no edema. No swelling. NERVOUS SYSTEM: Diffusely weak. LAB STUDIES: WBC 6.9, hemoglobin is 8. Potassium is 5.4. Sodium 135, creatinine 3.27. The chest x- ray which was done on 09/16 reviewed by me showed bilateral lower lobe infiltrate also. PAST MEDICAL HISTORY: Reviewed. REVIEW OF SYSTEMS: Cardiovascular: S1, S2. Respiration: As mentioned earlier. GI: As mentioned earlier. : No dysuria. CENTRAL NERVOUS SYSTEM: No numbness or weakness. CURRENT MEDICATIONS: Reviewed and include: 1. Tylenol p.r.n. 2. Kechi 5 mg. 3. DuoNeb. 4. Xanax. 5. PhosLo. 6. Rocephin 1 g daily. 7. Narcan. 8. Habitrol. 9. Protonix. ASSESSMENT: 1. Acute severe anemia present on admission, multifactorial secondary to nutritious as well as secondary to malignancy, severe, status post transfusions, present on admission. No evidence of any active gastrointestinal bleed. 2. Right breast cancer with diffuse metastasis status post core biopsy including 3. Diffuse skeletal metastasis and back pain. 4. Urinary tract infection, present on admission. 5. Bilateral nephrosis. 6. Rule out congestive heart failure. 7. Change in mental status, acute metabolic encephalopathy, multifactorial. 8. Acute renal failure possible acute tubular necrosis as well as possible post obstructive uropathy with acute tubular necrosis, multifactorial. 9. History of EtOH abuse. 10.Severe protein calorie malnutrition. 11.Hypothyroidism. 12.History of noncompliance. 13.History of depression. 14.History of nicotine dependence. 15.History of section. 16.Chronic obstructive pulmonary disease. 17.Hyponatremia. 18.Anemia. 19.Thrombocytopenia. 20.Elevated PTH. 21.Gait dysfunction. 22.Hyperkalemia. 23.FULL CODE. RECOMMENDATIONS AND DISCUSSION: Recommend to continue current medications, management and symptomatic treatment. Continue with current medications. Continue the bronchodilators. I would also recommend repeat chest x-ray. Cardiac workup including 2D echo and as well as troponins also. The EKG on admission showed some non-progression orbits. Otherwise, no acute changes noted. Once again the prognosis guarded because of multiple complex medical issues. See orders for details. Otherwise we will await biopsy report and once the patient is stabilized, consider PT/OT evaluation and possible ECF rehab and further chemotherapy per chemotherapy or other measures per Oncology. Once again, the prognosis guarded. Creatinine is improved significantly. Urology has seen the patient and not planning any cysto or any active surgery at this time. The creatinine has improved significantly even though still significantly elevated. MMODL / IJN: [id number] / MTDD
[2019-09-20] MEDS: DEXAMETHASONE SOD PHOSPHATE 4 MG/ML 1 ML VIAL IV SCH ×3 (05:34→17:43)
[2019-09-20] MEDS: HYDROcodone/APAP 5-325MG 1 EACH TAB PO PRN (05:34)
[2019-09-20] MEDS: IPRATROPIUM-ALBUTEROL 3 ML NEB INHALATION SCH ×3 (08:17→21:01)
[2019-09-20 09:22] LABS: Calcium 8.5 mg/dL (8.4-10.2); Potassium 5.7 mmol/L (3.5-5.1)
[2019-09-20 09:27] LABS: Free Kappa Lt Chain Qnt, Serum 9.96 mg/dL (0.33-1.94)
--- NOTE | 2019-09-20 09:36 | P.PN ---
Subjective Patient is seen in follow-up for acute kidney injury. Renal function is improved since admission. Creatinine 3.27 as of yesterday. Patient has a Dillard catheter in place. Urine output 2.7 L in the last 24 hours. Denies chest pain or shortness of breath. Oral intake is good. Vital signs are stable. General: The patient appeared well nourished and normally developed. HEENT: Head exam is unremarkable. Neck is without jugular venous distension. LUNGS: Lungs are clear to auscultation and percussion. Breath sounds decreased. HEART: Rate and Rhythm are regular. First and second heart sounds normal. No murmurs, rubs or gallops. ABDOMEN: Abdominal exam reveals normal bowel sounds. Non-tender and non- distended. No evidence of peritonitis. EXTREMITITES: No clubbing, cyanosis, or edema. Objective - Vital Signs Vital signs: Vital Signs Temp 96.5 F L 09/20/19 04:44 Pulse 100 09/20/19 08:27 Resp 16 09/20/19 04:44 BP 164/78 09/20/19 04:44 Pulse Ox 94 L 09/20/19 04:44 Intake & Output 09/19/19 09/20/19 09/20/19 18:59 06:59 18:59 Intake Total 50 590 Output Total 2000 Balance 50 -1410 Intake: Intake, IV Titration 50 Amount cefTRIAXone 1 gm In 50 Sodium Chloride 0.9% 50 ml @ 100 mls/hr IVPB Q24HR [facility] Rx#:[id number] Oral 590 Output: Urine 2000 Other: Voiding Method Indwelling Catheter Indwelling Catheter - Labs CBC & Chem 7: 09/19/19 06:48 09/19/19 06:48 Labs: Abnormal Lab Results - Last 24 Hours (Table) 09/19/19 Range/Units 15:16 Troponin I 0.097 H* (0.000-0.034) ng/mL Microbiology - Last 24 Hours (Table) 09/13/19 15:50 Blood Culture - Final Blood No Growth after 144 hours Assessment and Plan Plan: Assessment: 1. Acute kidney injury secondary to obstructive uropathy. Currently has a Dillard catheter. Renal function improved since admission. Creatinine 3.15 today. 2. Bilateral hydronephrosis. Urology following. Potential stent placement this admission. 3. Hyperkalemia secondary to obstructive uropathy and acute kidney injury. Potassium level 5.7 today. No evidence of acidosis or hyperglycemia. 4. Metastatic breast cancer. 5. Acute blood loss anemia status post blood transfusion this admission. No active bleeding. 6. Hyperphosphatemia secondary to acute kidney injury maintained on PhosLo. Plan: Status post IV Lasix 40 mg September 19. Hold off on diuretics today. Repeat phosphorus level. 10 units of IV insulin with an amp of D50 now. Repeat potassium level this evening. Low potassium diet. Check iron studies.
[2019-09-20] MEDS ORDERED: DEXTROSE 10 % IN WATER 250 ML IV ONE (09:45)
[2019-09-20] MEDS ORDERED: INSULIN REGULAR 100 UNIT/ML VIAL IV ONE (09:45)
[2019-09-20 09:59] LABS: Anisocytosis Slight; Basophils # (A) 0.1 k/uL (0-0.2); Basophils % (A) 1 %; Eosinophils % (A) 0 %; HGB 8.4 gm/dL (11.4-16.0); Hypochromasia Slight; Lymphocytes # (A) 0.7 k/uL (1.0-4.8); Lymphocytes % (A) 10 %; MCH 28.2 pg (25.0-35.0); MCHC 31.2 g/dL (31.0-37.0); MCV 90.4 fL (80.0-100.0); Monocytes # (A) 0.2 k/uL (0-1.0); Monocytes % (A) 4 %; Neutrophils # (A) 5.5 k/uL (1.3-7.7); Neutrophils % (A) 83 %; Platelet Count 126 k/uL (150-450); RBC 2.98 m/uL (3.80-5.40); RDW 16.8 % (11.5-15.5); WBC 6.6 k/uL (3.8-10.6)
--- NOTE | 2019-09-20 10:11 | ECHOF ---
Referral Reason:chf MEASUREMENTS -------- HEIGHT: 139.7 cm WEIGHT: 55.8 kg BP: 164/78 RVIDd: 3.2 cm (< 3.3) IVSd: 1.3 cm (0.6 - 1.1) LVIDd: 3.7 cm (3.9 - 5.3) LVPWd: 1.2 cm (0.6 - 1.1) IVSs: 1.5 cm LVIDs: 2.9 cm LVPWs: 1.7 cm LAESV Index (A-L): 50.93 ml/m Ao Diam: 3.1 cm (2.0 - 3.7) AV Cusp: 2.0 cm (1.5 - 2.6) LA Diam: 4.1 cm (2.7 - 3.8) MV EXCURSION: 11.106 mm (> 18.000) MV EF SLOPE: 105 mm/s (70 - 150) EPSS: 0.8 cm MV E Torrey: 0.72 m/s MV DecT: 196 ms MV A Torrey: 1.04 m/s MV E/A Ratio: 0.69 RAP: 15.00 mmHg RVSP: 52.61 mmHg FINDINGS -------- Sinus rhythm. This was a technically adequate study. The left ventricular size is normal. There is mild concentric left ventricular hypertrophy. There is mild global hypokinesis of LV . Overall left ventricular systolic function is mildly impaired w ith, an EF between 45 - 50 %. Both the mean atrial pressure as well as the LV end diastolic pressur e is elevated 13.33. The right ventricle is normal in size. LA is severely dilated >40 ml/m2 The right atrial size is normal. Interatrial and interventricular septum intact. The aortic valve was not well visualized. There is no evidence of aortic regurgitation. There is no evidence of aortic stenosis. Moderate mitral regurgitation is present. Moderate tricuspid regurgitation present. There is moderate pulmonary hypertension. The right tosha tricular systolic pressure, as measured by Doppler, is 52.61mmHg. The pulmonic valve was not well visualized. The aortic root size is normal. The inferior vena cava is dilated with poor inspiratory collapse which is consistent with estimated r ight atrial pressure of 15 mmHg. There is no pericardial effusion. CONCLUSIONS -------- 1. Sinus rhythm. 2. This was a technically adequate study. 3. The left ventricular size is normal. 4. There is mild concentric left ventricular hypertrophy. 5. There is mild global hypokinesis of LV . 6. Overall left ventricular systolic function is mildly impaired with, an EF between 45 - 50 %. 7. Both the mean atrial pressure as well as the LV end diastolic pressure is elevated 13.33. 8. The right ventricle is normal in size. 9. LA is severely dilated >40 ml/m2 10. The right atrial size is normal. 11. Interatrial and interventricular septum intact. 12. The aortic valve was not well visualized. 13. There is no evidence of aortic regurgitation. 14. There is no evidence of aortic stenosis. 15. Moderate mitral regurgitation is present. 16. Moderate tricuspid regurgitation present. 17. There is moderate pulmonary hypertension. 18. The right ventricular systolic pressure, as measured by Doppler, is 52.61mmHg. 19. The pulmonic valve was not well visualized. 20. The aortic root size is normal. 21. The inferior vena cava is dilated with poor inspiratory collapse which is consistent with estimat ed right atrial pressure of 15 mmHg. 22. There is no pericardial effusion. MANAGER BATTERY: Leora Gaston RDCS
[2019-09-20] MEDS: NICOTINE 14MG/24HR PATCH TRANSDERM SCH (10:40)
[2019-09-20] MEDS: HEPARIN SODIUM,PORCINE 5,000 UNIT/ML 1 ML VIAL SQ SCH ×2 (10:40→21:20)
[2019-09-20] MEDS: CALCIUM ACETATE 667 MG TAB PO SCH ×3 (10:40→17:43)
[2019-09-20] MEDS: PANTOPRAZOLE 40 MG TABLET PO SCH (10:41)
--- NOTE | 2019-09-20 13:41 | US ---
EXAMINATION TYPE: US venous doppler duplex LE RT DATE OF EXAM: 09/20/2019 1:21 PM COMPARISON: NONE CLINICAL HISTORY: unilateral swelling. right leg swelling and pain, metastatic cancer SIDE PERFORMED: Right TECHNIQUE: The lower extremity deep venous system is examined utilizing real time linear array sonog varinder with graded compression, doppler sonography and color-flow sonography. VESSELS IMAGED: External Iliac Vein (EIV) Common Femoral Vein Deep Femoral Vein Greater Saphenous Vein * Femoral Vein Popliteal Vein Small Saphenous Vein * Proximal Calf Veins (* superficial vessels) There is diffuse subcutaneous edema in the visualized right lower extremity. Right Leg: Appears negative for DVT, but patient would not allow me to take any compression images d ue to her extensive pain IMPRESSION: Limited exam. Overall no sonographic evidence of deep venous thrombosis is seen within th e right lower extremity however compression images (which are most diagnostic) were not able to be ob tained due to the patient's extensive pain. Diffuse subcutaneous edema is noted.
--- NOTE | 2019-09-20 16:50 | PN ---
PROGRESS NOTE DATE OF SERVICE: 09/20/2019 This 49-year-old woman was admitted with possible breast cancer with multiple METS, is being closely monitored at this time. The surgical specimen from the core biopsy is still pending at this time. The patient has multiple medical issues, including renal failure also and gait dysfunction. Creatinine is slightly definitely improved to 3.15 at this time. PHYSICAL EXAMINATION: Patient is alert, oriented x3. Pulse is 100, blood pressure 169/94, respiration 20, temperature 98 degrees, pulse ox 98% on 3 L. HEENT is conjunctivae normal. NECK: No JVD. CARDIOVASCULAR: S1, S2 muffled. RESPIRATORY SYSTEM: Breath sounds diminished at the bases. Scattered rhonchi and crackles. ABDOMEN is soft, nontender. LEGS: Legs minimal edema. NERVOUS SYSTEM: No focal deficits. LABS: WBC 6.6, hemoglobin is 8.4, potassium 5.7, creatinine 3.15. ASSESSMENT: 1. Acute severe anemia present on admission multifactorial possibly secondary to nutrition as well as secondary to malignancy, status post multiple transfusions. No evidence of any gastrointestinal bleed. 2. Right breast cancer with diffuse METS status post core biopsy. 3. Diffuse skeletal metastasis and back pain on CT scan. 4. Urinary tract infection present on admission. 5. Bilateral hydronephrosis. 6. Rule out congestive heart failure. 7. Change in mental status, metabolic encephalopathy, multifactorial. 8. Acute renal failure possible acute tubular necrosis as well as possible postobstructive uropathy with acute tubular necrosis, multifactorial, history of EtOH abuse. 9. Severe protein calorie malnutrition. 10.Hypothyroidism. 11.History of noncompliance. 12.History of depression. 13.History of nicotine dependence. 14.History of section. 15.History of chronic obstructive pulmonary disease. 16.Hyponatremia. 17.Anemia. 18.Thrombocytopenia. 19.Elevated PTH. 20.Gait dysfunction. 21.Hyperkalemia. 22.Congestive heart failure with acute on chronic systolic dysfunction ejection fraction 40% to 50%. 23.FULL CODE. RECOMMENDATIONS AND DISCUSSION: Recommend to continue current medications, continue with monitoring, management and symptomatic treatment. Otherwise continue to monitor potassium closely. Continue the empiric antibiotics, PT/OT evaluation, possible ECF rehab. Await core biopsy report. A 2D echo has been done today which showed ejection fraction about 40-50 percent. LA was severely elevated, so I would recommend to continue the current medications, and continue to monitor. Guarded prognosis. Further recommendations to follow. Recommend a chest x-ray tomorrow morning and continue to monitor. KANDACEL / RONN: [id number] /
[2019-09-20] MEDS: ACETAMINOPHEN TAB 325 MG TAB PO PRN (17:43)
[2019-09-20 17:48] LABS: % Iron Saturation 53.85 (12.00-45.00)
[2019-09-20 17:56] LABS: Estradiol 21.2 pg/mL; Ferritin 810.4 ng/mL (10.0-291.0); Follicle Stimulating Hormone 18.7 mIU/mL; Luteinizing Hormone 1.1 mIU/mL
--- NOTE | 2019-09-20 18:40 | P.PN ---
Subjective Progress Note Date: 09/20/19 Principal diagnosis: breast mass, bone lesions In f/u today pt has c/o RLE and labial swelling, painful as it rubs, she still has strength in the legs, incontinent of urine and stool. Denied fever, nausea, chest pain, cough. Objective - Vital Signs Vital signs: Vital Signs Temp 98 F 09/20/19 11:41 Pulse 94 09/20/19 11:41 Resp 20 09/20/19 11:41 BP 169/85 09/20/19 11:41 Pulse Ox 92 L 09/20/19 11:41 Intake & Output 09/19/19 09/20/19 09/20/19 18:59 06:59 18:59 Intake Total 50 590 1380 Output Total 2000 Balance 50 -1410 1380 Intake: IV 480 Sodium Chloride 0.9% 1, 480 000 ml @ 60 mls/hr IV . [id number] [facility] Rx#:[id number] Intake, IV Titration 50 300 Amount Dextrose 10 % in Water 250 250 ml @ 999 mls/hr IV ONCE ONE Rx#:[id number] cefTRIAXone 1 gm In 50 50 Sodium Chloride 0.9% 50 ml @ 100 mls/hr IVPB Q24HR [facility] Rx#:[id number] Oral 590 600 Output: Urine 1999 Other: Voiding Method Indwelling Catheter Indwelling Catheter Indwelling Catheter - Constitutional General appearance: Present: cooperative, mild distress, thin - EENT Eyes: Present: anicteric sclerae, EOMI, poor dentition ENT: Present: hearing grossly normal - Neck Neck: Present: lymphadenopathy - Respiratory Respiratory: bilateral: CTA, diminished - Cardiovascular Rhythm: regular Heart sounds: normal: S1, S2 Abnormal Heart Sounds: Absent: systolic murmur, diastolic murmur, rub, S3 Gallop, S4 Gallop, click, other - Peripheral edema leg Peripheral Edema: right: 1+ (thigh area), bilateral: None - Gastrointestinal General gastrointestinal: Present: normal bowel sounds, soft - Genitourinary Genitourinary Comment(s): labial swelling, mild redness, no visible lesion - Musculoskeletal Musculoskeletal: Present: generalized weakness, strength equal bilaterally - Psychiatric Psychiatric: Present: A&O x's 3, appropriate affect, intact judgment & insight - Labs CBC & Chem 7: 09/20/19 08:40 09/20/19 15:46 Labs: Abnormal Lab Results - Last 24 Hours (Table) 09/18/19 09/20/19 09/20/19 Range/Units 06:43 08:40 08:40 RBC 2.98 L (3.80-5.40) m/uL Hgb 8.4 L (11.4-16.0) gm/dL Hct 27.0 L (34.0-46.0) % RDW 16.8 H (11.5-15.5) % Plt Count 126 L (150-450) k/uL Lymphocytes # 0.7 L (1.0-4.8) k/uL Sodium 135 L (137-145) mmol/L Potassium 5.7 H (3.5-5.1) mmol/L BUN 108 H* (7-17) mg/dL Creatinine 3.15 H (0.52-1.04) mg/dL Glucose 103 H (74-99) mg/dL % Saturation (12.00-45.00) Ferritin (10.0-291.0) ng/mL Free Sholes LC, Quant 9.96 H (0.33-1.94) mg/dL Free Lambda LC, Quant 3.98 H (0.57-2.63) mg/dL 09/20/19 09/20/19 Range/Units 08:40 15:46 RBC (3.80-5.40) m/uL Hgb (11.4-16.0) gm/dL Hct (34.0-46.0) % RDW (11.5-15.5) % Plt Count (150-450) k/uL Lymphocytes # (1.0-4.8) k/uL Sodium (137-145) mmol/L Potassium 5.4 H (3.5-5.1) mmol/L BUN (7-17) mg/dL Creatinine (0.52-1.04) mg/dL Glucose (74-99) mg/dL % Saturation 53.85 H (12.00-45.00) Ferritin 810.4 H (10.0-291.0) ng/mL Free Sholes LC, Quant (0.33-1.94) mg/dL Free Lambda LC, Quant (0.57-2.63) mg/dL Microbiology - Last 24 Hours (Table) 09/13/19 15:50 Blood Culture - Final Blood No Growth after 144 hours - Imaging and Cardiology CT T & L spine report reviewed Assessment and Plan (1) Metastatic breast cancer Narrative/Plan: Pt had breast masses identified a month ago, states stresses in her life have kept her from following up. IR performed biopsy. Specimen will be sent for HR, Her2 and NGS testing. Tumor markers returned, both >600 Bone mets incidentally found. NM bone scan reported as metastatic disease widespread in both axial and appendicular skeleton. Dex started. MRI spine ordered because of incontinence and concerns for cord compression, cervical spine completed, interestingly, no mets reported. Pt unable to tolerate MRI, CT T&L spine without contrast showed diffuse osteoblastic changes consistent with advanced metastatic disease, no compression fx. Case discussed with PT, goal is to get pt moving. She has unsteady gait from bone mets/pain, have requested wheeled seated walker to assist with ambulation and safety After pt seen, path reported, HR + Breast cancer, Her2 2+ pending FISH. Hormonal treatment will be started DONN. Hormonal treatments can typically be given in ECF so this will be of great benefit to pt in the short term. Will update her in AM. Current Visit: Yes Status: Acute Code(s): C50.919 - MALIGNANT NEOPLASM OF UNSP SITE OF UNSPECIFIED FEMALE BREAST SNOMED Code(s): 258541407 (2) Breast mass Current Visit: Yes Status: Acute Priority: High Code(s): N63.0 - UNSPECIFIED LUMP IN UNSPECIFIED BREAST SNOMED Code(s): 26199748 (3) Anemia Narrative/Plan: Anemia is likely multifactorial, noted as far back as 2017. Pt has received 3 units of PRBCs with appropriate increase in Hgb, stable. This is going to alter iron studies and there was no blood available from prior to transfusion to order anemia work up on, so, will wait to order Transfuse to keep Hgb 7 or greater. Current Visit: Yes Status: Acute Priority: High Code(s): D64.9 - ANEMIA, UNSPECIFIED SNOMED Code(s): 615605388 (4) Acute renal failure Narrative/Plan: Nephrology is following, Urology consulted, improving slightly every day Current Visit: Yes Status: Acute Priority: High Code(s): N17.9 - ACUTE KIDNEY FAILURE, UNSPECIFIED SNOMED Code(s): 17907730 Plan: All of the above was discussed with pt, she did seem to understand the work up being done, concerns for cancer. Pt needs PCP that accepts her insurance and can make referrals for her, in process. At this time, we are unable to offer patient treatment until her social issues have been addressed-patient is currently homeless. We would also want patient has every opportunity to rehabilitate and get herself stronger. So, we would delay treatment until she could have this opportunity. We will continue to fo llow with patient very closely and update her as more information becomes available.
[2019-09-21] MEDS: ALPRAZolam 0.25 MG TAB PO PRN ×2 (00:18→23:56)
[2019-09-21] MEDS: DEXAMETHASONE SOD PHOSPHATE 4 MG/ML 1 ML VIAL IV SCH ×5 (00:18→23:53)
[2019-09-21] MEDS: HYDROcodone/APAP 5-325MG 1 EACH TAB PO PRN ×2 (06:00→13:49)
[2019-09-21] MEDS: IPRATROPIUM-ALBUTEROL 3 ML NEB INHALATION SCH ×3 (08:03→20:22)
[2019-09-21 08:32] LABS: Calcium 8.1 mg/dL (8.4-10.2); Magnesium 1.6 mg/dL (1.6-2.3); Phosphorus 4.1 mg/dL (2.5-4.5)
[2019-09-21 08:35] LABS: Anisocytosis Slight; Basophils % (A) 1 %; Eosinophils % (A) 0 %; HCT 26.3 % (34.0-46.0); HGB 8.3 gm/dL (11.4-16.0); Hypochromasia Slight; Lymphocytes # (A) 0.6 k/uL (1.0-4.8); Lymphocytes % (A) 11 %; MCH 28.5 pg (25.0-35.0); MCHC 31.5 g/dL (31.0-37.0); MCV 90.5 fL (80.0-100.0); Mean Platelet Volume 9.1; Monocytes # (A) 0.2 k/uL (0-1.0); Monocytes % (A) 3 %; Neutrophils # (A) 4.8 k/uL (1.3-7.7); Neutrophils % (A) 83 %; Platelet Count 144 k/uL (150-450); RBC 2.91 m/uL (3.80-5.40); RDW 16.8 % (11.5-15.5); WBC 5.8 k/uL (3.8-10.6)
[2019-09-21] MEDS: PANTOPRAZOLE 40 MG TABLET PO SCH (08:37)
[2019-09-21] MEDS: NICOTINE 14MG/24HR PATCH TRANSDERM SCH (08:37)
[2019-09-21] MEDS: CALCIUM ACETATE 667 MG TAB PO SCH ×3 (08:38→17:45)
[2019-09-21] MEDS: HEPARIN SODIUM,PORCINE 5,000 UNIT/ML 1 ML VIAL SQ SCH ×2 (08:38→21:00)
--- NOTE | 2019-09-21 08:42 | XR ---
EXAMINATION TYPE: XR chest 1V portable DATE OF EXAM: 09/21/2019 Comparison: 09/19/2019 Clinical History: 49-year-old female CHF Findings: Heart borderline enlarged. Small to moderate effusions with prominent mid and lower lung opacities. O verall appearance is similar. Sclerotic bone densities seen throughout. IMPRESSION: 1. Continued [id number]-[id number] effusions with prominent mid and lower lung atelectasis and/or consoli dation. 2. Diffuse osseous metastatic disease.
[2019-09-21] MEDS ORDERED: FUROSEMIDE 10 MG/ML 4 ML VIAL IV STA (11:08)
--- NOTE | 2019-09-21 11:08 | P.PN ---
Subjective Patient is seen in follow-up for acute kidney injury. Renal function is improved since admission. Creatinine 2.9 today. Patient has a Dillard catheter in place. She is nonoliguric. Denies chest pain or shortness of breath. Oral intake is fair. Vital signs are stable. General: The patient appeared well nourished and normally developed. HEENT: Head exam is unremarkable. Neck is without jugular venous distension. LUNGS: Lungs are clear to auscultation and percussion. Breath sounds decreased. HEART: Rate and Rhythm are regular. First and second heart sounds normal. No murmurs, rubs or gallops. ABDOMEN: Abdominal exam reveals normal bowel sounds. Non-tender and non- distended. No evidence of peritonitis. EXTREMITITES: Trace edema. Objective - Vital Signs Vital signs: Vital Signs Temp 97.9 F 09/20/19 21:00 Pulse 98 09/20/19 21:12 Resp 20 09/20/19 21:00 BP 170/77 09/20/19 21:00 Pulse Ox 93 L 09/20/19 21:00 Intake & Output 09/20/19 09/21/19 09/21/19 18:59 06:59 18:59 Intake Total 1380 617 Output Total 1000 Balance 1380 -383 Intake: IV 480 80 Sodium Chloride 0.9% 1, 480 80 000 ml @ 60 mls/hr IV . [id number] [facility] Rx#:[id number] Intake, IV Titration 300 Amount Dextrose 10 % in Water 250 250 ml @ 999 mls/hr IV ONCE ONE Rx#:[id number] cefTRIAXone 1 gm In 50 Sodium Chloride 0.9% 50 ml @ 100 mls/hr IVPB Q24HR [facility] Rx#:[id number] Oral 600 537 Output: Urine 1000 Other: Voiding Method Indwelling Catheter Indwelling Catheter Indwelling Catheter - Labs CBC & Chem 7: 09/21/19 07:22 09/21/19 07:22 Labs: Abnormal Lab Results - Last 24 Hours (Table) 09/18/19 09/20/19 09/20/19 Range/Units 06:43 08:40 15:46 RBC (3.80-5.40) m/uL Hgb (11.4-16.0) gm/dL Hct (34.0-46.0) % RDW (11.5-15.5) % Plt Count (150-450) k/uL Lymphocytes # (1.0-4.8) k/uL Sodium (137-145) mmol/L Potassium 5.4 H (3.5-5.1) mmol/L BUN (7-17) mg/dL Creatinine (0.52-1.04) mg/dL Calcium (8.4-10.2) mg/dL % Saturation 53.85 H (12.00-45.00) Ferritin 810.4 H (10.0-291.0) ng/mL Albumin (PEP) 2.20 L (3.80-4.90) g/dL Hknla-8-Kbysnfdvh 0.43 H (0.10-0.40) g/dL Beta Globulins 0.50 L (0.60-1.30) g/dL Gamma Globulins 0.60 L (0.70-1.50) g/dL 09/21/19 09/21/19 Range/Units 07:22 07:22 RBC 2.91 L (3.80-5.40) m/uL Hgb 8.3 L (11.4-16.0) gm/dL Hct 26.3 L (34.0-46.0) % RDW 16.8 H (11.5-15.5) % Plt Count 144 L (150-450) k/uL Lymphocytes # 0.6 L (1.0-4.8) k/uL Sodium 133 L (137-145) mmol/L Potassium 6.0 H (3.5-5.1) mmol/L BUN 117 H* (7-17) mg/dL Creatinine 2.90 H (0.52-1.04) mg/dL Calcium 8.1 L (8.4-10.2) mg/dL % Saturation (12.00-45.00) Ferritin (10.0-291.0) ng/mL Albumin (PEP) (3.80-4.90) g/dL Lfncc-9-Reyeitxvh (0.10-0.40) g/dL Beta Globulins (0.60-1.30) g/dL Gamma Globulins (0.70-1.50) g/dL Assessment and Plan Plan: Assessment: 1. Acute kidney injury secondary to obstructive uropathy. Currently has a Dillard catheter. Renal function improved since admission. Creatinine 2.9 today. Elevated BUN partially due to steroids. 2. Bilateral hydronephrosis. Urology following. Has a Dillard catheter. 3. Hyperkalemia secondary to obstructive uropathy and acute kidney injury. Potassium level 6 today, however this was a hemolyzed sample. No evidence of acidosis or hyperglycemia. 4. Metastatic breast cancer. 5. Acute blood loss anemia status post blood transfusion this admission. No active bleeding. Iron replete. 6. Hyperphosphatemia secondary to acute kidney injury maintained on PhosLo. Better. 7. Hypomagnesemia from poor oral intake. 8. Volume overload. Pleural effusions noted on chest x-ray. Plan: Lasix 40 mg IV once now. Repeat potassium level now. Avoid nephrotoxins Low potassium diet. Magnesium being replaced.
[2019-09-21] MEDS: MAGNESIUM SULFATE-D5W PMX 1 GM in DEXTROSE/WATER 1 100ML.BAG IVPB SCH ×2 (12:18→13:49)
[2019-09-21] MEDS: LETROZOLE 2.5 MG TAB PO SCH (12:18)
[2019-09-21] MEDS: SODIUM POLYSTYRENE SULFONATE 15 GM/60 ML BOTTLE PO SCH (13:50)
--- NOTE | 2019-09-21 14:27 | P.CONS ---
History of Present Illness - Reason for Consult Consult date: 09/21/19 Metastatic breast cancer Requesting physician: Bennie Zamorano - Chief Complaint I have pain - History of Present Illness Ms. Gant is a pleasant female with a new diagnosis of high grade adenocarcinoma of the breast ER + DC+Her2/enu equiv (fish pending), who presents to the hospital with c/o of progressive ABDULLAHI and cough, CXR showed L>R pleural effusions with emphysema and incidentally bone lesions. CT CAP done showed extensive bone mets, bilateral hydronephrosis. Labs revealed severe anemia, acute renal failure, normal calcium. Bone scan showed diffuse bony involvement. Breast core biopsy on 09/15/19 revealed invasive adenocarcinoma ER + DC+ Her2/adrianna equivocal MRI cervical spine was negative. She did undergo thoracic/lumbar spine dedicated CT on 09/17/19 secondary to complaints of difficulty with urine and bowel continence no evidence of cord compression was visualized. Positive for unintentional weight loss last few months, appetite is poor, denied fevers, sweats, chest pain, cough is occasionally productive for thick sputum, no hemoptysis, no indigestion, heartburn, dysuria, hematuria, she was incontinent of stool yesterday, denies pain, swelling. She denied personal history of cancer, known kidney disease. Patient complains of diffuse pain primarily in the lower back she is unable to truly make any significant movements. Past Medical History Past Medical History: Thyroid Disorder Additional Past Medical History / Comment(s): ETOH abuse, anemia, hernia repair, depression, smoker 1.5ppd, kyphosis, breast cancer History of Any Multi-Drug Resistant Organisms: None Reported Past Surgical History: Section, Hernia Repair Additional Past Surgical History / Comment(s): hand Past Anesthesia/Blood Transfusion Reactions: No Reported Reaction Past Psychological History: Depression Smoking Status: Current every day smoker Past Alcohol Use History: Abuse Additional Past Alcohol Use History / Comment(s): started smoking at age 14; smokes 1.5 ppd Past Drug Use History: None Reported - Past Family History Sister(s) Family Medical History: Cancer Additional Family Medical History / Comment(s): bilateral breast cancer age 50 Brother(s) Family Medical History: Cancer Additional Family Medical History / Comment(s): five of eight brothers with liver cancer Medications and Allergies Home Medications Medication Instructions Recorded Confirmed Type Albuterol Inhaler [Ventolin Hfa 1 - 2 puff INHALATION RT-Q6H PRN 08/26/19 09/13/19 History Inhaler] Aspirin [Adult Low Dose Aspirin EC] 81 mg PO DAILY PRN 08/26/19 09/13/19 History Diclofenac Potassium [Cataflam] 50 mg PO BID 08/26/19 09/13/19 History Vortioxetine Hydrobromide 5 mg PO QAM 08/26/19 09/13/19 History [Trintellix] Allergies Allergy/AdvReac Type Severity Reaction Status Date / Time No Known Allergies Allergy Verified 09/13/19 17:44 Physical Exam Vitals: Vital Signs Temp Pulse Pulse Resp BP Pulse Ox 09/21/19 12:22 84 09/21/19 12:14 97.9 F 98 18 151/78 92 L 09/21/19 12:11 84 09/20/19 21:12 98 09/20/19 21:03 90 09/20/19 21:00 97.9 F 99 20 170/77 93 L Intake and Output 09/20/19 09/21/19 09/21/19 22:59 06:59 14:59 Intake Total 617 Output Total 1000 Balance 617 -1000 Intake: IV 80 Sodium Chloride 0.9% 1, 80 000 ml @ 60 mls/hr IV . [id number] [facility] Rx#:[id number] Oral 537 Output: Urine 1000 Other: Voiding Method Indwelling Catheter Indwelling Catheter Indwelling Catheter - Constitutional General appearance: thin - Neck Neck: normal ROM - Respiratory Respiratory: bilateral: dullness - Cardiovascular Rhythm: regular - Neurologic Neurologic: CNII-XII intact - Musculoskeletal unable to assess - Psychiatric Psychiatric: A&O x's 3 Results CBC & Chem 7: 09/21/19 07:22 09/21/19 11:54 Labs: Abnormal Lab Results - Last 24 Hours (Table) 09/18/19 09/20/19 09/20/19 Range/Units 06:43 08:40 15:46 RBC (3.80-5.40) m/uL Hgb (11.4-16.0) gm/dL Hct (34.0-46.0) % RDW (11.5-15.5) % Plt Count (150-450) k/uL Lymphocytes # (1.0-4.8) k/uL Sodium (137-145) mmol/L Potassium 5.4 H (3.5-5.1) mmol/L BUN (7-17) mg/dL Creatinine (0.52-1.04) mg/dL Calcium (8.4-10.2) mg/dL % Saturation 53.85 H (12.00-45.00) Ferritin 810.4 H (10.0-291.0) ng/mL Albumin (PEP) 2.20 L (3.80-4.90) g/dL Gbnoe-4-Ebwikgmua 0.43 H (0.10-0.40) g/dL Beta Globulins 0.50 L (0.60-1.30) g/dL Gamma Globulins 0.60 L (0.70-1.50) g/dL 09/21/19 09/21/19 09/21/19 Range/Units 07:22 07:22 11:54 RBC 2.91 L (3.80-5.40) m/uL Hgb 8.3 L (11.4-16.0) gm/dL Hct 26.3 L (34.0-46.0) % RDW 16.8 H (11.5-15.5) % Plt Count 144 L (150-450) k/uL Lymphocytes # 0.6 L (1.0-4.8) k/uL Sodium 133 L (137-145) mmol/L Potassium 6.0 H 5.9 H (3.5-5.1) mmol/L BUN 117 H* (7-17) mg/dL Creatinine 2.90 H (0.52-1.04) mg/dL Calcium 8.1 L (8.4-10.2) mg/dL % Saturation (12.00-45.00) Ferritin (10.0-291.0) ng/mL Albumin (PEP) (3.80-4.90) g/dL Smhir-4-Spowawadf (0.10-0.40) g/dL Beta Globulins (0.60-1.30) g/dL Gamma Globulins (0.70-1.50) g/dL Assessment and Plan Assessment: Leslie Gant is a 49 year old with a new diagnosis of metastatic breast cancer and significant social issues including that she is currently homeless. She c/o diffuse pain throughout her body without a focal site of particular difficulty. She is not currently ambulatory. She is not an optimal candidate for radiotherapy as she would be unable to tolerate the treatment table and her pain complaints are diffuse. She does c/o of both bowel and bladder incontinence, however, imaging was without evidence of cord compression. She continues to have strength and sensation in her feet/legs. Plan: We will continue to follow Leslie. She will likely best be served with systemic therapy while she recovers. Should she have a focal pain site she would be a candidate for palliative RT.
--- NOTE | 2019-09-21 14:33 | P.PN ---
Subjective Progress Note Date: 09/21/19 Principal diagnosis: This is a 49-year-old female who was recently admitted with possible breast cancer with multiple metastases and is being closely monitored. Multiple medical consultations are following. Creatinine is slightly improved and is currently 2.9. Potassium was elevated at 6.0 and Kayexalate was ordered. Magnesium was 1.6 and being replaced. Repeat chest x-ray done today shows continued small to moderate effusions with prominent mid and lower lung atelectasis and/or consolidation with diffuse metastatic disease. Patient will be given a one-time dose of IV Lasix today. Case management and social work are following as the plan is for patient to go to [facility] once patient is stabilized and discharged. Objective - Vital Signs Vital signs: Vital Signs Temp 97.9 F 09/20/19 21:00 Pulse 98 09/20/19 21:12 Resp 20 09/20/19 21:00 BP 170/77 09/20/19 21:00 Pulse Ox 93 L 09/20/19 21:00 Intake & Output 09/20/19 09/21/19 09/21/19 18:59 06:59 18:59 Intake Total 1380 617 Output Total 1000 Balance 1380 -383 Intake: IV 480 80 Sodium Chloride 0.9% 1, 480 80 000 ml @ 60 mls/hr IV . [id number] [facility] Rx#:[id number] Intake, IV Titration 300 Amount Dextrose 10 % in Water 250 250 ml @ 999 mls/hr IV ONCE ONE Rx#:[id number] cefTRIAXone 1 gm In 50 Sodium Chloride 0.9% 50 ml @ 100 mls/hr IVPB Q24HR [facility] Rx#:[id number] Oral 600 537 Output: Urine 1000 Other: Voiding Method Indwelling Catheter Indwelling Catheter Indwelling Catheter - Exam Gen: This is a 49-year-old female sitting up in bed, awake and alert 3. Temp is 97.9F, pulse is 98, respirations are 18, blood pressure is 151/78, oxygen s aturation is 92% on 3 L via nasal cannula. HEENT: Head is atraumatic, normocephalic. Pupils equal, round. Sclerae is anicteric. NECK: Supple. No JVD. No lymphadenopathy. No thyromegaly. LUNGS: Breath sounds diminished at the bases with a few scattered rhonchi and crackles noted. No intercostal retractions. HEART: S1, S2 are muffled ABDOMEN: Soft. Bowel sounds are present. No masses. No tenderness. EXTREMITIES: No pedal edema. No calf tenderness. NEUROLOGICAL: Patient is awake, alert and oriented x3. Cranial nerves 2 through 12 are grossly intact. - Labs CBC & Chem 7: 09/21/19 07:22 09/21/19 11:54 Labs: Abnormal Lab Results - Last 24 Hours (Table) 09/18/19 09/20/19 09/20/19 Range/Units 06:43 08:40 15:46 RBC (3.80-5.40) m/uL Hgb (11.4-16.0) gm/dL Hct (34.0-46.0) % RDW (11.5-15.5) % Plt Count (150-450) k/uL Lymphocytes # (1.0-4.8) k/uL Sodium (137-145) mmol/L Potassium 5.4 H (3.5-5.1) mmol/L BUN (7-17) mg/dL Creatinine (0.52-1.04) mg/dL Calcium (8.4-10.2) mg/dL % Saturation 53.85 H (12.00-45.00) Ferritin 810.4 H (10.0-291.0) ng/mL Albumin (PEP) 2.20 L (3.80-4.90) g/dL Jkhop-0-Lpcwfppth 0.43 H (0.10-0.40) g/dL Beta Globulins 0.50 L (0.60-1.30) g/dL Gamma Globulins 0.60 L (0.70-1.50) g/dL 09/21/19 09/21/19 Range/Units 07:22 07:22 RBC 2.91 L (3.80-5.40) m/uL Hgb 8.3 L (11.4-16.0) gm/dL Hct 26.3 L (34.0-46.0) % RDW 16.8 H (11.5-15.5) % Plt Count 144 L (150-450) k/uL Lymphocytes # 0.6 L (1.0-4.8) k/uL Sodium 133 L (137-145) mmol/L Potassium 6.0 H (3.5-5.1) mmol/L BUN 117 H* (7-17) mg/dL Creatinine 2.90 H (0.52-1.04) mg/dL Calcium 8.1 L (8.4-10.2) mg/dL % Saturation (12.00-45.00) Ferritin (10.0-291.0) ng/mL Albumin (PEP) (3.80-4.90) g/dL Bmruk-9-Ueoubretl (0.10-0.40) g/dL Beta Globulins (0.60-1.30) g/dL Gamma Globulins (0.70-1.50) g/dL Assessment and Plan Assessment: Acute severe anemia, present on admission, multifactorial possibly secondary to nutrition as well as secondary malignancy, status post multiple transfusions. No evidence of GI bleed Right breast cancer with diffuse metastases status post core biopsy Diffuse skeletal metastasis and back pain on computed tomography scan Urinary tract infection, present on admission Bilateral hydronephrosis Rule out congestive heart failure Change in mental status, possible metabolic encephalopathy, multifactorial Acute renal failure possible acute tubular necrosis as well as possible postobstructive uropathy with acute tubular necrosis, multifactorial, history of EtOH abuse Severe protein calorie malnutrition Hypothyroidism History of noncompliance History of depression History of nicotine dependence History of section History of chronic obstructive pulmonary disease Hyponatremia Anemia thrombocytopenia Elevated PTH Gait dysfunction Hyperkalemia Congestive heart failure with acute on chronic systolic dysfunction ejection fraction 40-50% Full code Recommendations and discussion: Recommend to continue current medications, management, and symptomatic treatment. Patient's potassium was elevated at 6.0 and will be given Kayexalate. Repeat potassium. Case management and social work are following as the plan is to go to [facility] once patient is stabilized and discharged. Core biopsy pending. Due to multiple complex medical issues prognosis is guarded. Further recommendations to follow.
--- NOTE | 2019-09-21 16:00 | P.PN ---
Subjective Progress Note Date: 09/21/19 Principal diagnosis: breast mass, bone lesions-HR + metastatic breast cancer In f/u today pt has ongoing c/o of generalized pain, the RLE and labial swelling is less intense today, she did not have DVT, continues to be incontinent of urine and stool. Denied fever, nausea, chest pain, cough. Objective - Vital Signs Vital signs: Vital Signs Temp 97.9 F 09/21/19 12:14 Pulse 84 09/21/19 12:22 Resp 18 09/21/19 12:14 BP 151/78 09/21/19 12:14 Pulse Ox 92 L 09/21/19 12:14 Intake & Output 09/20/19 09/21/19 09/21/19 18:59 06:59 18:59 Intake Total 1380 617 Output Total 1000 600 Balance 1380 -383 -600 Intake: IV 480 80 Sodium Chloride 0.9% 1, 480 80 000 ml @ 60 mls/hr IV . [id number] [facility] Rx#:[id number] Intake, IV Titration 300 Amount Dextrose 10 % in Water 250 250 ml @ 999 mls/hr IV ONCE ONE Rx#:[id number] cefTRIAXone 1 gm In 50 Sodium Chloride 0.9% 50 ml @ 100 mls/hr IVPB Q24HR [facility] Rx#:[id number] Oral 600 537 Output: Urine 1000 600 Other: Voiding Method Indwelling Catheter Indwelling Catheter Indwelling Catheter # Bowel Movements 2 - Constitutional General appearance: Present: cooperative, mild distress, thin - EENT Eyes: Present: anicteric sclerae, EOMI, poor dentition ENT: Present: hearing grossly normal - Respiratory Respiratory: bilateral: CTA, diminished - Cardiovascular Rhythm: regular Heart sounds: normal: S1, S2 Abnormal Heart Sounds: Absent: systolic murmur, diastolic murmur, rub, S3 Ga llop, S4 Gallop, click, other - Peripheral edema leg Peripheral Edema: right: 1+ (upper thigh, less then yesterday), left: None - Gastrointestinal General gastrointestinal: Present: normal bowel sounds, soft. Absent: absent bowel sounds, decreased bowel sounds, distended, hepatomegaly, hyperactive bowel sounds, organomegaly, rigid, scaphoid, splenomegaly, tenderness, umbilical hernia, ventral hernia - Musculoskeletal Musculoskeletal: Present: generalized weakness (legs, BLE strength to resistance 4/5) - Psychiatric Psychiatric Comment(s): pt is tearful, scared, very concerned with diagnosis, social situation Psychiatric: Present: A&O x's 3 - Allied health notes Allied health notes reviewed: case management - Labs CBC & Chem 7: 09/21/19 07:22 09/21/19 11:54 Labs: Abnormal Lab Results - Last 24 Hours (Table) 09/18/19 09/20/19 09/20/19 Range/Units 06:43 08:40 15:46 RBC (3.80-5.40) m/uL Hgb (11.4-16.0) gm/dL Hct (34.0-46.0) % RDW (11.5-15.5) % Plt Count (150-450) k/uL Lymphocytes # (1.0-4.8) k/uL Sodium (137-145) mmol/L Potassium 5.4 H (3.5-5.1) mmol/L BUN (7-17) mg/dL Creatinine (0.52-1.04) mg/dL Calcium (8.4-10.2) mg/dL % Saturation 53.85 H (12.00-45.00) Ferritin 810.4 H (10.0-291.0) ng/mL Albumin (PEP) 2.20 L (3.80-4.90) g/dL Xvbnl-4-Icdknlsmb 0.43 H (0.10-0.40) g/dL Beta Globulins 0.50 L (0.60-1.30) g/dL Gamma Globulins 0.60 L (0.70-1.50) g/dL 09/21/19 09/21/19 09/21/19 Range/Units 07:22 07:22 11:54 RBC 2.91 L (3.80-5.40) m/uL Hgb 8.3 L (11.4-16.0) gm/dL Hct 26.3 L (34.0-46.0) % RDW 16.8 H (11.5-15.5) % Plt Count 144 L (150-450) k/uL Lymphocytes # 0.6 L (1.0-4.8) k/uL Sodium 133 L (137-145) mmol/L Potassium 6.0 H 5.9 H (3.5-5.1) mmol/L BUN 117 H* (7-17) mg/dL Creatinine 2.90 H (0.52-1.04) mg/dL Calcium 8.1 L (8.4-10.2) mg/dL % Saturation (12.00-45.00) Ferritin (10.0-291.0) ng/mL Albumin (PEP) (3.80-4.90) g/dL Yahno-2-Hmaqkblnx (0.10-0.40) g/dL Beta Globulins (0.60-1.30) g/dL Gamma Globulins (0.70-1.50) g/dL Assessment and Plan (1) Metastatic breast cancer Narrative/Plan: Pt had breast masses identified a month ago, states stresses in her life have kept her from following up. IR performed biopsy. Tumor markers returned, both >600 Bone mets incidentally found. NM bone scan reported as metastatic disease widespread in both axial and appendicular skeleton. Dex started. MRI spine ordered because of incontinence and concerns for cord compression, cervical spine completed, interestingly, no mets reported. Pt unable to tolerate/refuses MRI. CT T&L spine without contrast showed diffuse osteoblastic changes consistent with advanced metastatic disease, no compression fx, cord compression. Concern is for a leptomeningeal spread of cancer causing symptoms. I discussed LP with pt and she refused procedure at this time. Hopefully her Cr improves and a CT with contrast can be ordered. She was seen and evaluated by Rad Onc. No radiation planned at this time as pt has no specific areas of pain to treat. Case discussed with PT, goal is to get pt moving. She has unsteady gait from bone mets/pain, have requested wheeled seated walker to assist with ambulation and safety. ER/OH +-femara Rx started today. Her2 equivocal, sent for FISH. This will determine what our treatment of choice will be. Did have Case Manger discuss with ECF, where pt is going to be staying until she can find permanent residency, if we get free drug from [employer] can it be given in that setting and it can be. Will f/u with plan. Current Visit: Yes Status: Acute Code(s): C50.919 - MALIGNANT NEOPLASM OF UNSP SITE OF UNSPECIFIED FEMALE BREAST SNOMED Code(s): 003303194 (2) Breast mass Current Visit: Yes Status: Acute Priority: High Code(s): N63.0 - UNSPECIFIED LUMP IN UNSPECIFIED BREAST SNOMED Code(s): 03801007 (3) Anemia Narrative/Plan: Anemia is likely multifactorial, noted as far back as 2017. Pt has received 3 units of PRBCs with appropriate increase in Hgb, stable. This is going to alter iron studies and there was no blood available from prior to transfusion to order anemia work up on, so, will wait to order Transfuse to keep Hgb 7 or greater. Hgb has been stable post transfusion Current Visit: Yes Status: Acute Priority: High Code(s): D64.9 - ANEMIA, UNSPECIFIED SNOMED Code(s): 686630118 (4) Acute renal failure Narrative/Plan: Nephrology is following, Urology consulted, improving slightly every day Current Visit: Yes Status: Acute Priority: High Code(s): N17.9 - ACUTE KIDNEY FAILURE, UNSPECIFIED SNOMED Code(s): 32647796 Plan: All of the above was discussed with pt. She is still very scared and refusing testing. We will do what we can with what we have available Pt needs PCP that accepts her insurance and can make referrals for her, in process. We will continue to follow with patient very closely Discussed case with IM F/U sujey with Dr. Hemphill Time with Patient: Greater than 30
[2019-09-21] MEDS ORDERED: INSULIN REGULAR 100 UNIT/ML VIAL IV ONE (20:38)
[2019-09-21] MEDS ORDERED: DEXTROSE 10 % IN WATER 250 ML IV STA (20:39)
[2019-09-21 20:53] LABS: Glucose,Whole Blood 140 mg/dL (75-99)
[2019-09-22] MEDS: HYDROcodone/APAP 5-325MG 1 EACH TAB PO PRN (00:20)
[2019-09-22] MEDS: DEXAMETHASONE SOD PHOSPHATE 4 MG/ML 1 ML VIAL IV SCH ×4 (05:49→23:52)
[2019-09-22 08:01] LABS: Anisocytosis Slight; Basophils # (A) 0.1 k/uL (0-0.2); Basophils % (A) 1 %; Eosinophils # (A) 0.1 k/uL (0-0.7); Eosinophils % (A) 1 %; HCT 26.5 % (34.0-46.0); HGB 8.4 gm/dL (11.4-16.0); Hypochromasia Slight; Lymphocytes # (A) 0.5 k/uL (1.0-4.8); Lymphocytes % (A) 9 %; MCH 28.5 pg (25.0-35.0); MCHC 31.9 g/dL (31.0-37.0); MCV 89.4 fL (80.0-100.0); Mean Platelet Volume 8.1; Monocytes # (A) 0.2 k/uL (0-1.0); Monocytes % (A) 3 %; Neutrophils # (A) 5.4 k/uL (1.3-7.7); Neutrophils % (A) 85 %; Platelet Count 176 k/uL (150-450); RBC 2.96 m/uL (3.80-5.40); RDW 16.6 % (11.5-15.5); WBC 6.3 k/uL (3.8-10.6)
[2019-09-22 08:17] LABS: Calcium 8.2 mg/dL (8.4-10.2); Magnesium 2.1 mg/dL (1.6-2.3)
[2019-09-22] MEDS: CALCIUM ACETATE 667 MG TAB PO SCH ×3 (08:38→17:50)
[2019-09-22] MEDS: PANTOPRAZOLE 40 MG TABLET PO SCH (08:38)
[2019-09-22] MEDS: NICOTINE 14MG/24HR PATCH TRANSDERM SCH (08:39)
[2019-09-22] MEDS: LETROZOLE 2.5 MG TAB PO SCH (08:39)
[2019-09-22] MEDS: HEPARIN SODIUM,PORCINE 5,000 UNIT/ML 1 ML VIAL SQ SCH ×2 (08:39→21:49)
[2019-09-22] MEDS: SODIUM POLYSTYRENE SULFONATE 15 GM/60 ML BOTTLE PO SCH (08:39)
[2019-09-22] MEDS: IPRATROPIUM-ALBUTEROL 3 ML NEB INHALATION SCH ×3 (09:01→20:52)
[2019-09-22] MEDS ORDERED: SODIUM POLYSTYRENE SULFONATE 15 GM/60 ML BOTTLE PO STA (09:06)
--- NOTE | 2019-09-22 11:17 | P.PN ---
Progress Note - Text Progress Note Date: 09/22/19 Leslie is a 49-year-old white female who is noted to have a right breast mass. Core biopsy was positive for adenocarcinoma high-grade G3. It is ER/WY positive and HER-2 equivocal. The patient has been identified to have widely metastatic disease. She was noted to have incontinence of urine and stool and recommended to undergo an MRI to rule out involvement of spinal cord. The patient refused. CT without contrast showed diffuse osteoblastic changes consistent with advanced metastatic disease. There was concern for leptomeningeal spread. The patient also refused a lumbar puncture. The patient was seen and evaluated by radiation oncology no radiation planned. The patient is not a candidate for any surgical intervention at this time. Her tumor is strongly ER/WY positive and she was started on Femara. Physical exam: Right breast: No evidence of infection or hematoma at site of core biopsy Impression: Advanced metastatic breast cancer/osteoblastic bony mets Fecal and urinary incontinence causing concern about leptomeningeal spread Chronic anemia Plan: 1. Femara 2. No plan for any surgical intervention at this time 3. Physical therapy 4. Continue treatment as per medical oncology 5. Will follow as needed
--- NOTE | 2019-09-22 11:19 | P.PN ---
Subjective Patient is seen in follow-up for acute kidney injury. Renal function had been improving the last few days but is worse again today. Patient has a Dillard catheter in place. She is nonoliguric. Denies chest pain or shortness of breath. Oral intake is fair. Potassium level staying elevated. Vital signs are stable. General: The patient appeared well nourished and normally developed. HEENT: Head exam is unremarkable. Neck is without jugular venous distension. LUNGS: Lungs are clear to auscultation and percussion. Breath sounds decreased. HEART: Rate and Rhythm are regular. First and second heart sounds normal. No murmurs, rubs or gallops. ABDOMEN: Abdominal exam reveals normal bowel sounds. Non-tender and non- distended. No evidence of peritonitis. EXTREMITITES: Trace edema. Objective - Vital Signs Vital signs: Vital Signs Temp 98.3 F 09/22/19 05:00 Pulse 80 09/22/19 09:14 Resp 18 09/22/19 05:00 BP 163/92 09/22/19 05:00 Pulse Ox 96 09/22/19 05:00 Intake & Output 09/21/19 09/22/19 09/22/19 18:59 06:59 18:59 Intake Total 1040 Output Total 600 350 700 Balance -600 690 -700 Intake: Intake, IV Titration 250 Amount Dextrose 10 % in Water 250 250 ml @ 999 mls/hr IV ONCE STA Rx#:[id number] Oral 790 Output: Urine 600 350 700 Uretheral (Dillard) 350 Other: Voiding Method Indwelling Catheter Indwelling Catheter # Bowel Movements 2 1 1 - Labs CBC & Chem 7: 09/22/19 07:44 09/22/19 07:44 Labs: Abnormal Lab Results - Last 24 Hours (Table) 09/21/19 09/21/19 09/21/19 Range/Units 11:54 18:40 20:52 RBC (3.80-5.40) m/uL Hgb (11.4-16.0) gm/dL Hct (34.0-46.0) % RDW (11.5-15.5) % Lymphocytes # (1.0-4.8) k/uL Sodium (137-145) mmol/L Potassium 5.9 H 5.8 H (3.5-5.1) mmol/L Chloride (98-107) mmol/L BUN (7-17) mg/dL Creatinine (0.52-1.04) mg/dL POC Glucose (mg/dL) 140 H (75-99) mg/dL Calcium (8.4-10.2) mg/dL 09/22/19 09/22/19 Range/Units 07:44 07:44 RBC 2.96 L (3.80-5.40) m/uL Hgb 8.4 L (11.4-16.0) gm/dL Hct 26.5 L (34.0-46.0) % RDW 16.6 H (11.5-15.5) % Lymphocytes # 0.5 L (1.0-4.8) k/uL Sodium 132 L (137-145) mmol/L Potassium 6.0 H (3.5-5.1) mmol/L Chloride 96 L (98-107) mmol/L BUN 130 H* (7-17) mg/dL Creatinine 3.47 H (0.52-1.04) mg/dL POC Glucose (mg/dL) (75-99) mg/dL Calcium 8.2 L (8.4-10.2) mg/dL Assessment and Plan Plan: Assessment: 1. Acute kidney injury secondary to obstructive uropathy. Currently has a Dillard catheter. Renal function improved since admission but is worse again today. Creatinine 3.47. Elevated BUN partially due to steroids. 2. Bilateral hydronephrosis. Urology following. Has a Dillard catheter. 3. Hyperkalemia secondary to obstructive uropathy and acute kidney injury. No evidence of acidosis or hyperglycemia. 4. Metastatic breast cancer. Oncology following. 5. Acute blood loss anemia status post blood transfusion this admission. No active bleeding. Iron replete. 6. Hyperphosphatemia secondary to acute kidney injury maintained on PhosLo. Better. 7. Hypomagnesemia from poor oral intake. Better post replacement. 8. Volume overload. Pleural effusions noted on chest x-ray. Status post IV Lasix yesterday. Plan: Status post Kayexalate this morning. 10 units IV insulin with an amp of D50 now. Repeat potassium level this evening. Avoid nephrotoxins Low potassium diet.
[2019-09-22] MEDS ORDERED: INSULIN REGULAR 100 UNIT/ML VIAL IV ONE (11:39)
[2019-09-22] MEDS ORDERED: DEXTROSE 10 % IN WATER 250 ML IV STA (11:40)
[2019-09-22] MEDS: ACETAMINOPHEN TAB 325 MG TAB PO PRN (11:52)
--- NOTE | 2019-09-22 14:16 | P.PN ---
Subjective Progress Note Date: 09/22/19 Principal diagnosis: This is a 49-year-old female who was recently admitted with possible breast cancer with multiple metastases and is being closely monitored. Multiple medical consultations are following. Creatinine is slightly improved and is currently 2.9. Potassium was elevated at 6.0 and Kayexalate was ordered. Magnesium was 1.6 and being replaced. Repeat chest x-ray done today shows continued small to moderate effusions with prominent mid and lower lung atelectasis and/or consolidation with diffuse metastatic disease. Patient will be given a one-time dose of IV Lasix today. Case management and social work are following as the plan is for patient to go to [facility] once patient is stabilized and discharged. 09/22/2019 Patient is lying in bed currently receiving a massage of her lower extremities and is being closely monitored. Kayexalate was given an potassium continues to be 6.0 this morning. Patient given D5 and insulin and will check repeat potassium this evening. Patient denies any bowel movements. Magnesium was replaced and is currently 2.1. Patient's creatinine has worsened and is currently 3.47 with a BUN of 130. Multiple medical consultations are following. Patient's nasal cannula is on her forehead and patient is currently 95% on room air. Patient continues to have lower extremity weakness and states she is unable to walk. PT/OT is following. Patient was also started on Femara with oncology. Objective - Vital Signs Vital signs: Vital Signs Temp 97.9 F 09/22/19 11:35 Pulse 89 09/22/19 11:35 Resp 16 09/22/19 11:35 BP 164/85 09/22/19 11:35 Pulse Ox 95 09/22/19 11:35 Intake & Output 09/21/19 09/22/19 09/22/19 18:59 06:59 18:59 Intake Total 1040 Output Total 600 350 700 Balance -600 690 -700 Weight 55.9 kg Intake: Intake, IV Titration 250 Amount Dextrose 10 % in Water 250 250 ml @ 999 mls/hr IV ONCE STA Rx#:[id number] Oral 790 Output: Urine 600 350 700 Uretheral (Dillard) 350 Other: Voiding Method Indwelling Catheter Indwelling Catheter # Bowel Movements 2 1 1 - Exam Gen: This is a 49-year-old female lying in bed, awake and alert 3. Temp is 97.9F, pulse is 89, respirations are 16, blood pressure is 164/85, oxygen saturation is 95% on room air. HEENT: Head is atraumatic, normocephalic. Pupils equal, round. Sclerae is anicteric. NECK: Supple. No JVD. No lymphadenopathy. No thyromegaly. LUNGS: Breath sounds diminished at the bases with a few scattered rhonchi and no crackles noted. No intercostal retractions. HEART: S1, S2 are muffled ABDOMEN: Soft. Bowel sounds are present. No masses. No tenderness. EXTREMITIES: No pedal edema. No calf tenderness. NEUROLOGICAL: Patient is awake, alert and oriented x3. Cranial nerves 2 through 12 are grossly intact. - Labs CBC & Chem 7: 09/22/19 07:44 09/22/19 07:44 Labs: Abnormal Lab Results - Last 24 Hours (Table) 09/21/19 09/21/19 09/22/19 Range/Units 18:40 20:52 07:44 RBC 2.96 L (3.80-5.40) m/uL Hgb 8.4 L (11.4-16.0) gm/dL Hct 26.5 L (34.0-46.0) % RDW 16.6 H (11.5-15.5) % Lymphocytes # 0.5 L (1.0-4.8) k/uL Sodium (137-145) mmol/L Potassium 5.8 H (3.5-5.1) mmol/L Chloride (98-107) mmol/L BUN (7-17) mg/dL Creatinine (0.52-1.04) mg/dL POC Glucose (mg/dL) 140 H (75-99) mg/dL Calcium (8.4-10.2) mg/dL 09/22/19 Range/Units 07:44 RBC (3.80-5.40) m/uL Hgb (11.4-16.0) gm/dL Hct (34.0-46.0) % RDW (11.5-15.5) % Lymphocytes # (1.0-4.8) k/uL Sodium 132 L (137-145) mmol/L Potassium 6.0 H (3.5-5.1) mmol/L Chloride 96 L (98-107) mmol/L BUN 130 H* (7-17) mg/dL Creatinine 3.47 H (0.52-1.04) mg/dL POC Glucose (mg/dL) (75-99) mg/dL Calcium 8.2 L (8.4-10.2) mg/dL Assessment and Plan Assessment: Acute severe anemia, present on admission, multifactorial possibly secondary to nutrition as well as secondary malignancy, status post multiple transfusions. No evidence of GI bleed Right breast cancer with diffuse metastases status post core biopsy Diffuse skeletal metastasis and back pain on computed tomography scan Urinary tract infection, present on admission Bilateral hydronephrosis Rule out congestive heart failure Change in mental status, possible metabolic encephalopathy, multifactorial Acute renal failure possible acute tubular necrosis as well as possible postobstructive uropathy with acute tubular necrosis, multifactorial, history of EtOH abuse Severe protein calorie malnutrition Hypothyroidism History of noncompliance History of depression History of nicotine dependence History of section History of chronic obstructive pulmonary disease Hyponatremia Anemia thrombocytopenia Elevated PTH Gait dysfunction Hyperkalemia Congestive heart failure with acute on chronic systolic dysfunction ejection fraction 40-50% Full code Recommendations and discussion: Recommend to continue current medications, management, and symptomatic hang atment. Patient's potassium continues to be elevated at 6.0 and was given Kayexalate. D5 and insulin will be given and will Repeat potassium this evening. Case management and social work are following as the plan is to go to [facility] once patient is stabilized and discharged. Core biopsy pending. Due to multiple complex medical issues prognosis is guarded. Further recommendations to follow.
--- NOTE | 2019-09-22 17:47 | P.PN ---
Subjective Progress Note Date: 09/22/19 Principal diagnosis: breast mass, bone lesions-HR + metastatic breast cancer In follow-up today patient has complaints of generalized discomfort, she is still incontinent of stool and urine, her right lower extremity she has to lift, her left lower extremity she has no trouble with at all. Patient wants to sit up and get moving, this was very much encouraged. Her appetite is fair, no nausea or vomiting, she is tolerating the AI that was started. Objective - Vital Signs Vital signs: Vital Signs Temp 97.9 F 09/22/19 11:35 Pulse 88 09/22/19 13:33 Resp 16 09/22/19 11:35 BP 164/85 09/22/19 11:35 Pulse Ox 95 09/22/19 11:35 Intake & Output 09/21/19 09/22/19 09/22/19 18:59 06:59 18:59 Intake Total 1040 300 Output Total 134 270 1037 Balance -600 690 -1150 Weight 55.9 kg Intake: Intake, IV Titration 250 300 Amount Dextrose 10 % in Water 250 250 250 ml @ 999 mls/hr IV ONCE STA Rx#:[id number] cefTRIAXone 1 gm In 50 Sodium Chloride 0.9% 50 ml @ 100 mls/hr IVPB Q24HR [facility] Rx#:[id number] Oral 790 Output: Urine 006 [id number] Uretheral (Dillard) 350 350 Other: Voiding Method Indwelling Catheter Indwelling Catheter Bedside Commode # Bowel Movements 2 1 2 - Constitutional General appearance: Present: cooperative, no acute distress, thin - EENT Eyes: Present: anicteric sclerae, EOMI ENT: Present: hearing grossly normal - Respiratory Respiratory: bilateral: CTA - Cardiovascular Rhythm: regular Heart sounds: normal: S1, S2 Abnormal Heart Sounds: Absent: systolic murmur, diastolic murmur, rub, S3 Gallop, S4 Gallop, click, other - Peripheral edema leg Peripheral Edema: bilateral: None - Gastrointestinal General gastrointestinal: Present: normal bowel sounds, soft - Neurologic Neurologic: Present: CNII-XII intact - Musculoskeletal Musculoskeletal Comment(s): Right lower extremity has strength 2-3/5, she has to lift the leg to bring it to the midline, left lower extremity is independent and strong and strength 5/5 - Psychiatric Psychiatric: Present: A&O x's 3, intact judgment & insight - Labs CBC & Chem 7: 09/22/19 07:44 09/22/19 07:44 Labs: Abnormal Lab Results - Last 24 Hours (Table) 09/21/19 09/21/19 09/22/19 Range/Units 18:40 20:52 07:44 RBC 2.96 L (3.80-5.40) m/uL Hgb 8.4 L (11.4-16.0) gm/dL Hct 26.5 L (34.0-46.0) % RDW 16.6 H (11.5-15.5) % Lymphocytes # 0.5 L (1.0-4.8) k/uL Sodium (137-145) mmol/L Potassium 5.8 H (3.5-5.1) mmol/L Chloride (98-107) mmol/L BUN (7-17) mg/dL Creatinine (0.52-1.04) mg/dL POC Glucose (mg/dL) 140 H (75-99) mg/dL Calcium (8.4-10.2) mg/dL 09/22/19 Range/Units 07:44 RBC (3.80-5.40) m/uL Hgb (11.4-16.0) gm/dL Hct (34.0-46.0) % RDW (11.5-15.5) % Lymphocytes # (1.0-4.8) k/uL Sodium 132 L (137-145) mmol/L Potassium 6.0 H (3.5-5.1) mmol/L Chloride 96 L (98-107) mmol/L BUN 130 H* (7-17) mg/dL Creatinine 3.47 H (0.52-1.04) mg/dL POC Glucose (mg/dL) (75-99) mg/dL Calcium 8.2 L (8.4-10.2) mg/dL Assessment and Plan (1) Metastatic breast cancer Narrative/Plan: Pt had breast masses identified a month ago, states stresses in her life have kept her from following up. IR performed biopsy. Tumor markers returned, both >600 Bone mets incidentally found. NM bone scan reported as metastatic disease widespread in both axial and appendicular skeleton. Dex started. MRI spine or dered because of incontinence and concerns for cord compression, cervical spine completed, interestingly, no mets reported. Pt unable to tolerate/refuses MRI. CT T&L spine without contrast showed diffuse osteoblastic changes consistent with advanced metastatic disease, no compression fx, cord compression. Concern is for a leptomeningeal spread of cancer causing symptoms. Patient is refusing LP still, she will not do an MRI, her kidney function is not well enough to do a CT. She was seen and evaluated by Rad Onc. No radiation planned at this time as pt has no specific areas of pain to treat, no imaging that can confirm a mass Case discussed with PT, goal is still to get pt moving. She has unsteady gait from bone mets/pain, have requested wheeled seated walker to assist with ambulation and safety. ER/DC +-femara Rx started Her2 equivocal, sent for FISH. This will determine what our treatment of choice will be. Did have Case Manger discuss with ECF, where pt is going to be staying until she can find permanent residency, if we get free drug from [employer] can it be given in that setting and it can be. Will f/u with plan. Current Visit: Yes Status: Acute Code(s): C50.919 - MALIGNANT NEOPLASM OF UNSP SITE OF UNSPECIFIED FEMALE BREAST SNOMED Code(s): 097162541 (2) Breast mass Current Visit: Yes Status: Acute Priority: High Code(s): N63.0 - UNSPECIFIED LUMP IN UNSPECIFIED BREAST SNOMED Code(s): 46064490 (3) Anemia Narrative/Plan: Anemia is likely multifactorial, noted as far back as 2017. Pt has received 3 units of PRBCs with appropriate increase in Hgb, stable. This is going to alter iron studies and there was no blood available from prior to transfusion to order anemia work up on, so, will wait to order Transfuse to keep Hgb 7 or greater. Hgb has been stable post transfusion Current Visit: Yes Status: Acute Priority: High Code(s): D64.9 - ANEMIA, UNSPECIFIED SNOMED Code(s): 674707585 (4) Acute renal failure Narrative/Plan: Nephrology is following, Urology consulted Current Visit: Yes Status: Acute Priority: High Code(s): N17.9 - ACUTE KIDNEY FAILURE, UNSPECIFIED SNOMED Code(s): 33910617 Plan: All of the above was discussed with pt again. She is still very scared and refusing testing. We will do what we can with what info we have available Pt needs PCP that accepts her insurance and can make referrals for her, in process. We will continue to follow with patient very closely Discussed case with IM F/U sched with Dr. Hemphill
[2019-09-22] MEDS: ALPRAZolam 0.25 MG TAB PO PRN (21:49)
[2019-09-23] MEDS: ACETAMINOPHEN TAB 325 MG TAB PO PRN (03:42)
[2019-09-23] MEDS: DEXAMETHASONE SOD PHOSPHATE 4 MG/ML 1 ML VIAL IV SCH ×3 (05:25→17:55)
[2019-09-23] MEDS: IPRATROPIUM-ALBUTEROL 3 ML NEB INHALATION SCH ×3 (07:59→20:06)
[2019-09-23 08:12] LABS: Potassium 5.3 mmol/L (3.5-5.1)
[2019-09-23] MEDS: LETROZOLE 2.5 MG TAB PO SCH (08:30)
[2019-09-23] MEDS: CALCIUM ACETATE 667 MG TAB PO SCH ×3 (08:30→17:04)
[2019-09-23] MEDS: PANTOPRAZOLE 40 MG TABLET PO SCH (08:30)
[2019-09-23] MEDS: NICOTINE 14MG/24HR PATCH TRANSDERM SCH (08:30)
[2019-09-23] MEDS: HEPARIN SODIUM,PORCINE 5,000 UNIT/ML 1 ML VIAL SQ SCH ×2 (08:31→22:23)
[2019-09-23] MEDS: SODIUM POLYSTYRENE SULFONATE 15 GM/60 ML BOTTLE PO SCH (08:31)
[2019-09-23] MEDS ORDERED: BISACODYL 5 MG TABLET.DR PO PRN (09:38)
[2019-09-23] MEDS ORDERED: BISACODYL 10 MG SUPP RECTAL STA (09:38)
--- NOTE | 2019-09-23 10:51 | P.PN ---
Subjective Patient is seen in follow-up for acute kidney injury. Renal function had been improving the last few days but is now worsening again the last 2 days. Patient has a Dillard catheter in place. She is nonoliguric. Denies chest pain or shortness of breath. Oral intake is fair. Potassium level better. Vital signs are stable. General: The patient appeared well nourished and normally developed. HEENT: Head exam is unremarkable. Neck is without jugular venous distension. LUNGS: Lungs are clear to auscultation and percussion. Breath sounds decreased. HEART: Rate and Rhythm are regular. First and second heart sounds normal. No murmurs, rubs or gallops. ABDOMEN: Abdominal exam reveals normal bowel sounds. Non-tender and non- distended. No evidence of peritonitis. EXTREMITITES: Trace edema. Objective - Vital Signs Vital signs: Vital Signs Temp 97.6 F 09/23/19 04:46 Pulse 104 H 09/23/19 08:10 Resp 16 09/23/19 04:46 BP 151/82 09/23/19 04:46 Pulse Ox 93 L 09/23/19 04:46 Intake & Output 09/22/19 09/23/19 09/23/19 18:59 06:59 18:59 Intake Total 300 Output Total 1450 Balance -1150 Weight 55.9 kg Intake: Intake, IV Titration 300 Amount Dextrose 10 % in Water 250 250 ml @ 999 mls/hr IV ONCE STA Rx#:[id number] cefTRIAXone 1 gm In 50 Sodium Chloride 0.9% 50 ml @ 100 mls/hr IVPB Q24HR [facility] Rx#:[id number] Output: Urine 1450 Uretheral (Dillard) 350 Other: Voiding Method Bedside Commode Bedside Commode Bedside Commode # Voids 1 # Bowel Movements 2 - Labs CBC & Chem 7: 09/22/19 07:44 09/23/19 06:59 Labs: Abnormal Lab Results - Last 24 Hours (Table) 09/22/19 09/23/19 Range/Units 17:41 06:59 Sodium 131 L (137-145) mmol/L Potassium 5.8 H 5.3 H (3.5-5.1) mmol/L Chloride 94 L (98-107) mmol/L BUN 138 H* (7-17) mg/dL Creatinine 3.49 H (0.52-1.04) mg/dL Calcium 8.0 L (8.4-10.2) mg/dL Assessment and Plan Plan: Assessment: 1. Acute kidney injury secondary to obstructive uropathy. Currently has a Dillard catheter. Renal function improved since admission but worsened the last 2 days. Creatinine 3.49. Elevated BUN partially due to steroids. 2. Bilateral hydronephrosis. Has a Dillard catheter. 3. Hyperkalemia secondary to obstructive uropathy and acute kidney injury. No evidence of acidosis or hyperglycemia. Better. 4. Metastatic breast cancer. Oncology following. 5. Acute blood loss anemia status post blood transfusion this admission. No active bleeding. Iron replete. 6. Hyperphosphatemia secondary to acute kidney injury maintained on PhosLo. Better. 7. Hypomagnesemia from poor oral intake. Better post replacement. 8. Volume overload. Pleural effusions noted on chest x-ray. Improved. Plan: Maintain Kayexalate daily. Add Lasix 20 mg orally once daily. Reconsult urology for potential stent placement due to worsening kidney funct ion. Avoid nephrotoxins Low potassium diet.
[2019-09-23] MEDS: FUROSEMIDE 20 MG TAB PO SCH (14:07)
--- NOTE | 2019-09-23 15:11 | P.PN ---
Subjective Progress Note Date: 09/23/19 Principal diagnosis: This is a 49-year-old female who was recently admitted with possible breast cancer with multiple metastases and is being closely monitored. Multiple medical consultations are following. Creatinine is slightly improved and is currently 2.9. Potassium was elevated at 6.0 and Kayexalate was ordered. Magnesium was 1.6 and being replaced. Repeat chest x-ray done today shows continued small to moderate effusions with prominent mid and lower lung atelectasis and/or consolidation with diffuse metastatic disease. Patient will be given a one-time dose of IV Lasix today. Case management and social work are following as the plan is for patient to go to [facility] once patient is stabilized and discharged. 09/22/2019 Patient is lying in bed currently receiving a massage of her lower extremities and is being closely monitored. Kayexalate was given an potassium continues to be 6.0 this morning. Patient given D5 and insulin and will check repeat potassium this evening. Patient denies any bowel movements. Magnesium was replaced and is currently 2.1. Patient's creatinine has worsened and is currently 3.47 with a BUN of 130. Multiple medical consultations are following. Patient's nasal cannula is on her forehead and patient is currently 95% on room air. Patient continues to have lower extremity weakness and states she is unable to walk. PT/OT is following. Patient was also started on Femara with oncology. 09/23/2019 This is a 49-year-old female who was recently admitted with possible breast cancer with multiple metastasis is being closely monitored. Patient has multiple medical issues and multiple medical consultations are following including oncology and nephrology. Urology has been consulted as patient has bilateral hydronephrosis and continues to have worsening creatinine. Today's creatinine is 3.49 with a BUN of 138. Potassium today is 5.3 and sodium continues to be low at 131. Patient continues to have an indwelling Dillard catheter and will continue at this time. Patient is having some abdominal discomfort and states that she has not had a bowel movement in a few days. Dulcolax by mouth and suppository have been ordered. Objective - Vital Signs Vital signs: Vital Signs Temp 98.3 F 09/23/19 12:26 Pulse 92 09/23/19 12:59 Resp 17 09/23/19 12:26 BP 139/81 09/23/19 12:26 Pulse Ox 98 09/23/19 12:26 Intake & Output 09/22/19 09/23/19 09/23/19 18:59 06:59 18:59 Intake Total 300 Output Total 1450 Balance -1150 Weight 55.9 kg Intake: Intake, IV Titration 300 Amount Dextrose 10 % in Water 250 250 ml @ 999 mls/hr IV ONCE STA Rx#:[id number] cefTRIAXone 1 gm In 50 Sodium Chloride 0.9% 50 ml @ 100 mls/hr IVPB Q24HR [facility] Rx#:[id number] Output: Urine 1450 Uretheral (Dillard) 350 Other: Voiding Method Bedside Commode Bedside Commode Bedside Commode # Voids 1 # Bowel Movements 2 - Exam Gen: This is a 49-year-old female lying in bed, awake and alert 3. Temp is 98.3 F, pulse is 97, respirations are 17, blood pressure is 139/81, oxygen saturation is 98 % on 2 L via nasal cannula. HEENT: Head is atraumatic, normocephalic. Pupils equal, round. Sclerae is anicteric. NECK: Supple. No JVD. No lymphadenopathy. No thyromegaly. LUNGS: Breath sounds diminished at the bases with a few scattered rhonchi and no crackles noted. No intercostal retractions. HEART: S1, S2 are muffled ABDOMEN: Soft. Bowel sounds are present. No masses. Mild tenderness noted on palpation. EXTREMITIES: No pedal edema. No calf tenderness. NEUROLOGICAL: Patient is awake, alert and oriented x3. Cranial nerves 2 through 12 are grossly intact. - Labs CBC & Chem 7: 09/22/19 07:44 09/23/19 06:59 Labs: Abnormal Lab Results - Last 24 Hours (Table) 09/22/19 09/23/19 Range/Units 17:41 06:59 Sodium 131 L (137-145) mmol/L Potassium 5.8 H 5.3 H (3.5-5.1) mmol/L Chloride 94 L (98-107) mmol/L BUN 138 H* (7-17) mg/dL Creatinine 3.49 H (0.52-1.04) mg/dL Calcium 8.0 L (8.4-10.2) mg/dL Assessment and Plan Assessment: Acute severe anemia, present on admission, multifactorial possibly secondary to nutrition as well as secondary malignancy, status post multiple transfusions. No evidence of GI bleed Right breast cancer with diffuse metastases status post core biopsy Diffuse skeletal metastasis and back pain on computed tomography scan Urinary tract infection, present on admission Bilateral hydronephrosis Rule out congestive heart failure Change in mental status, possible metabolic encephalopathy, multifactorial Acute renal failure possible acute tubular necrosis as well as possible postobstructive uropathy with acute tubular necrosis, multifactorial, history of EtOH abuse Severe protein calorie malnutrition Hypothyroidism History of noncompliance History of depression History of nicotine dependence History of section History of chronic obstructive pulmonary disease Hyponatremia Anemia thrombocytopenia Elevated PTH Gait dysfunction Hyperkalemia Congestive heart failure with acute on chronic systolic dysfunction ejection fraction 40-50% Full code Recommendations and discussion: Recommend to continue current medications, management, and symptomatic treatment. Repeat potassium today is 5.3. Urology was consulted and is pending at this time. Case management and social work are following as the plan is to go to [facility] once patient is stabilized and discharged. Physical therapy and occupational therapy following and patient continues to refuse to work with them. Discussed with the patient and nursing staff at length about continuing to encourage PT/OT as the patient is extremely weak and unsteady. Due to multiple complex medical issues prognosis is guarded. Further recommendations to follow.
--- NOTE | 2019-09-23 15:28 | US ---
EXAMINATION TYPE: US kidneys/renal and bladder DATE OF EXAM: 09/23/2019 COMPARISON: CT dated 09/13/2019 CLINICAL HISTORY: Hematuria. Hematuria, renal failure, metastatic cancer EXAM MEASUREMENTS: Right Kidney: 11.3 x 3.5 x 3.5 cm Left Kidney: 13.1 x 5.5 x 6.0 cm Technical limitations, patient unable to move from supine position Right Kidney: Moderate hydronephrosis Left Kidney: limited evaluation due to overlying bowel, moderate hydronephrosis Bladder: thickened anterior wall Bilateral Jets seen: no Moderate bilateral hydronephrosis. No nephrolithiasis is seen. No masses are identified. The urina ry bladder demonstrates circumferential urinary bladder wall thickening. Bilateral ureteral jets are seen. IMPRESSION: 1. Moderate bilateral hydronephrosis as seen on the CT dated 09/13/2019. Limited evaluation of the lef t kidney due to overlying bowel gas. 2. Urinary bladder wall thickening may relate to incomplete distention or cystitis. Correlate with ur inalysis.
--- NOTE | 2019-09-23 17:18 | P.PN ---
Subjective Progress Note Date: 09/23/19 Principal diagnosis: Bilateral hydronephrosis No acute overnight events, denies any flank pain. Her creat is trending up, Repeat RBUS redomnstrated hydronephrosis Objective - Vital Signs Vital signs: Vital Signs Temp 98.3 F 09/23/19 12:26 Pulse 92 09/23/19 13:11 Resp 17 09/23/19 12:26 BP 139/81 09/23/19 12:26 Pulse Ox 98 09/23/19 12:26 Intake & Output 09/22/19 09/23/19 09/23/19 18:59 06:59 18:59 Intake Total 300 Output Total 1450 Balance -1150 Weight 55.9 kg Intake: Intake, IV Titration 300 Amount Dextrose 10 % in Water 250 250 ml @ 999 mls/hr IV ONCE STA Rx#:[id number] cefTRIAXone 1 gm In 50 Sodium Chloride 0.9% 50 ml @ 100 mls/hr IVPB Q24HR [facility] Rx#:[id number] Output: Urine 1450 Uretheral (Dillard) 350 Other: Voiding Method Bedside Commode Bedside Commode Bedside Commode # Voids 1 4 # Bowel Movements 2 3 - Labs CBC & Chem 7: 09/22/19 07:44 09/23/19 06:59 Labs: Abnormal Lab Results - Last 24 Hours (Table) 09/22/19 09/23/19 Range/Units 17:41 06:59 Sodium 131 L (137-145) mmol/L Potassium 5.8 H 5.3 H (3.5-5.1) mmol/L Chloride 94 L (98-107) mmol/L BUN 138 H* (7-17) mg/dL Creatinine 3.49 H (0.52-1.04) mg/dL Calcium 8.0 L (8.4-10.2) mg/dL Assessment and Plan Assessment: 49-year-old female admitted to the hospital with weakness, poor by mouth intake, anemia with hemoglobin of 4.5 and LEO. Her creatinine is elevated at 6.88 from a baseline of 1.2. She underwent a CT that demonstrated bilateral hydronephrosis, without an obvious point of obstruction. Initially creat was trending down, now trending up. RBUS demonstrated bilateral hydro -OR tomorrow for cysto, bilateral stent placement. Discussed risk of bleeding, infection and injury to ureter. Also discussed risk from anesthesia -Keep NPO past MN
--- NOTE | 2019-09-23 19:46 | P.PN ---
Subjective Progress Note Date: 09/23/19 The patient is clinically stable abdominal symptoms. She continues to complain of mid to lower back pain, as well as left lower extremity weakness. Complaining of constipation but states that she has bowel sensation. She continues to have incontinence of bladder and bowel. No fever/chills/nausea/vom iting. She remains anxious overall Objective - Vital Signs Vital signs: Vital Signs Temp 98.3 F 09/23/19 12:26 Pulse 92 09/23/19 13:11 Resp 17 09/23/19 12:26 BP 139/81 09/23/19 12:26 Pulse Ox 98 09/23/19 12:26 Intake & Output 09/23/19 09/23/19 09/24/19 06:59 18:59 06:59 Other: Voiding Method Bedside Commode Bedside Commode # Voids 1 4 # Bowel Movements 3 - Constitutional General appearance: Present: no acute distress - EENT Eyes: Present: EOMI ENT: Present: hearing grossly normal, normal oropharynx - Respiratory Respiratory: bilateral: CTA - Cardiovascular Rhythm: regular Heart sounds: normal: S1, S2 - Gastrointestinal General gastrointestinal: Present: normal bowel sounds, soft - Integumentary Integumentary: Present: normal - Neurologic Neurologic: Present: CNII-XII intact, focal deficits (LLE weakness 3+/5 , sensation maintained) - Musculoskeletal Musculoskeletal: Present: left sided weakness - Psychiatric Psychiatric: Present: A&O x's 3 - Labs CBC & Chem 7: 09/22/19 07:44 09/23/19 06:59 Labs: Abnormal Lab Results - Last 24 Hours (Table) 09/23/19 Range/Units 06:59 Sodium 131 L (137-145) mmol/L Potassium 5.3 H (3.5-5.1) mmol/L Chloride 94 L (98-107) mmol/L BUN 138 H* (7-17) mg/dL Creatinine 3.49 H (0.52-1.04) mg/dL Calcium 8.0 L (8.4-10.2) mg/dL Assessment and Plan (1) Metastatic breast cancer Narrative/Plan: The patient has hormone positive disease and has been started on Femara. We are awaiting HER-2 status. If negative CDK4/6 inhibitor will be added. This is an all oral regimen, that the patient can hopefully continue even in an ECF setting Current Visit: Yes Status: Acute Code(s): C50.919 - MALIGNANT NEOPLASM OF UNSP SITE OF UNSPECIFIED FEMALE BREAST SNOMED Code(s): 644592239 (2) Acute renal failure Narrative/Plan: The patient's creatinine has improved partially, but has been slight needed with some increased today. Urology will be asked to see the patient again, to consider stent placement. Current Visit: Yes Status: Acute Priority: High Code(s): N17.9 - ACUTE KIDNEY FAILURE, UNSPECIFIED SNOMED Code(s): 42951771 (3) Lower extremity weakness Narrative/Plan: The patient has bilateral lower extremities weakness, left more than right. Today strength on the left with at least 3+/5. Sensation is maintained. However the patient does have diminished bowel and bladder sensation. The patient has refused MRIs of the thoracic and lumbar spine. She continues to refuse them today. CT of the spine did not show any obvious cord compression but this was a noncontrast study due to her renal insufficiency and therefore limited. This was discussed in detail with her. She was advised that without better imaging and further workup, we would not be able to define if the patient has cord compression or leptomeningeal disease responsible for her symptoms. She continued to refuse an MRI. She is however agreeable today to a lumbar puncture. This will be ordered Current Visit: Yes Status: Acute Code(s): R29.898 - [facility] SYMPTOMS AND SIGNS INVOLVING THE MUSCULOSKELETAL SYSTEM SNOMED Code(s): 067009534
[2019-09-23] MEDS: ALPRAZolam 0.25 MG TAB PO PRN (22:26)
[2019-09-23] MEDS: HYDROcodone/APAP 5-325MG 1 EACH TAB PO PRN (22:30)
[2019-09-23] MEDS ORDERED: LIDOCAINE 1% 20 ML VIAL (10MG/ML) FOR IV START INTRADERMA PRN (22:32)
[2019-09-23] MEDS ORDERED: HYDROmorphone 0.5 MG/0.5 ML SYRINGE IVP PRN (22:32)
[2019-09-24] MEDS: LACTATED RINGERS 1,000 ML IV SCH (00:05)
[2019-09-24] MEDS: DEXAMETHASONE SOD PHOSPHATE 4 MG/ML 1 ML VIAL IV SCH ×5 (00:22→23:41)
[2019-09-24] MEDS: IPRATROPIUM-ALBUTEROL 3 ML NEB INHALATION SCH ×3 (07:05→19:46)
[2019-09-24] MEDS: PANTOPRAZOLE 40 MG TABLET PO SCH (08:00)
[2019-09-24] MEDS: NICOTINE 14MG/24HR PATCH TRANSDERM SCH (08:00)
[2019-09-24] MEDS: SODIUM POLYSTYRENE SULFONATE 15 GM/60 ML BOTTLE PO SCH (08:01)
[2019-09-24] MEDS: FUROSEMIDE 20 MG TAB PO SCH (08:01)
[2019-09-24] MEDS: HEPARIN SODIUM,PORCINE 5,000 UNIT/ML 1 ML VIAL SQ SCH ×2 (08:01→20:53)
[2019-09-24] MEDS: CALCIUM ACETATE 667 MG TAB PO SCH ×3 (08:01→17:26)
[2019-09-24] MEDS: LETROZOLE 2.5 MG TAB PO SCH (08:01)
[2019-09-24 09:48] LABS: Calcium 8.2 mg/dL (8.4-10.2); Potassium 5.5 mmol/L (3.5-5.1)
[2019-09-24] MEDS ORDERED: IV FLUID CONTINUATION 1,000 ML IV ONE (10:41)
[2019-09-24] MEDS ORDERED: LIDOCAINE 1% INJ 10MG/ML (20 ML MDV) ONE (11:51)
[2019-09-24] MEDS ORDERED: PROPOFOL 10 MG/ML 20 ML VIAL IV ONE (11:51)
[2019-09-24] MEDS ORDERED: fentaNYL (PF) 50 MCG/ML 2 ML AMP ONE (11:51)
[2019-09-24] MEDS ORDERED: KETAMINE 10 MG/ML 20 ML VIAL ONE (11:51)
[2019-09-24] MEDS ORDERED: MIDAZOLAM 2 MG/2 ML VIAL ONE (11:51)
--- NOTE | 2019-09-24 11:54 | P.PN ---
Subjective Patient is seen in follow-up for acute kidney injury. Renal function had started to improve but the last few days is gradually getting worse again. Creatinine 4.07 today. She scheduled to undergo cystoscopy with ureteral stent placement today. No chest pain or shortness of breath. Vital signs are stable. General: The patient appeared well nourished and normally developed. HEENT: Head exam is unremarkable. Neck is without jugular venous distension. LUNGS: Lungs are clear to auscultation and percussion. Breath sounds decreased. HEART: Rate and Rhythm are regular. First and second heart sounds normal. No murmurs, rubs or gallops. ABDOMEN: Abdominal exam reveals normal bowel sounds. Non-tender and non- distended. No evidence of peritonitis. EXTREMITITES: 1+ edema. Objective - Vital Signs Vital signs: Vital Signs Temp 99.1 F 09/24/19 10:45 Pulse 81 09/24/19 10:45 Resp 16 09/24/19 10:45 BP 165/77 09/24/19 05:14 Pulse Ox 100 09/24/19 10:45 Intake & Output 09/23/19 09/24/19 09/24/19 18:59 06:59 18:59 Intake Total 1320 Balance 1320 Intake: IV 240 Sodium Chloride 0.9% 1, 240 000 ml @ 60 mls/hr IV . [id number] [facility] Rx#:[id number] Oral 1080 Other: Voiding Method Bedside Commode Bedside Commode Bedside Commode Diaper Diaper # Voids 4 1 1 # Bowel Movements 3 1 - Labs CBC & Chem 7: 09/22/19 07:44 09/24/19 09:05 Labs: Abnormal Lab Results - Last 24 Hours (Table) 09/24/19 Range/Units 09:05 Sodium 131 L (137-145) mmol/L Potassium 5.5 H (3.5-5.1) mmol/L Chloride 92 L (98-107) mmol/L BUN 138 H* (7-17) mg/dL Creatinine 4.07 H (0.52-1.04) mg/dL Calcium 8.2 L (8.4-10.2) mg/dL Assessment and Plan Plan: Assessment: 1. Acute kidney injury secondary to obstructive uropathy. Renal function gradually worsening. Creatinine 4.07 today. Elevated BUN partially due to steroids. 2. Bilateral hydronephrosis. Scheduled for cystoscopy with ureteral stents placement today. 3. Hyperkalemia secondary to obstructive uropathy and acute kidney injury. No evidence of acidosis or hyperglycemia. 4. Metastatic breast cancer. Oncology following. 5. Acute blood loss anemia status post blood transfusion this admission. No active bleeding. Iron replete. 6. Hyperphosphatemia secondary to acute kidney injury maintained on PhosLo. Better. 7. Hypomagnesemia from poor oral intake. Better post replacement. 8. Volume overload. Pleural effusions noted on chest x-ray. Improved. Plan: Maintain Kayexalate daily. Maintain Lasix 20 mg once daily. Expect kidney function to improve after urologic intervention. Avoid nephrotoxins Low potassium diet. Repeat potassium level this evening.
[2019-09-24] MEDS ORDERED: SODIUM CHLORIDE 0.9% 50 ML with ceFAZolin 1,000 MG IV ONE ×4 (12:14)
[2019-09-24] MEDS ORDERED: IOPAMIDOL-300 50ML BTL MISCELLANE ONE (12:40)
[2019-09-24] MEDS ORDERED: SODIUM CHLORIDE 0.9% 1,000 ML IV ONE ×2 (12:44)
--- NOTE | 2019-09-24 15:07 | P.PN ---
Subjective Progress Note Date: 09/24/19 Principal diagnosis: This is a 49-year-old female who was recently admitted with possible breast cancer with multiple metastases and is being closely monitored. Multiple medical consultations are following. Creatinine is slightly improved and is currently 2.9. Potassium was elevated at 6.0 and Kayexalate was ordered. Magnesium was 1.6 and being replaced. Repeat chest x-ray done today shows continued small to moderate effusions with prominent mid and lower lung atelectasis and/or consolidation with diffuse metastatic disease. Patient will be given a one-time dose of IV Lasix today. Case management and social work are following as the plan is for patient to go to [facility] once patient is stabilized and discharged. 09/22/2019 Patient is lying in bed currently receiving a massage of her lower extremities and is being closely monitored. Kayexalate was given an potassium continues to be 6.0 this morning. Patient given D5 and insulin and will check repeat potassium this evening. Patient denies any bowel movements. Magnesium was replaced and is currently 2.1. Patient's creatinine has worsened and is currently 3.47 with a BUN of 130. Multiple medical consultations are following. Patient's nasal cannula is on her forehead and patient is currently 95% on room air. Patient continues to have lower extremity weakness and states she is unable to walk. PT/OT is following. Patient was also started on Femara with oncology. 09/23/2019 This is a 49-year-old female who was recently admitted with possible breast cancer with multiple metastasis is being closely monitored. Patient has multiple medical issues and multiple medical consultations are following including oncology and nephrology. Urology has been consulted as patient has bilateral hydronephrosis and continues to have worsening creatinine. Today's creatinine is 3.49 with a BUN of 138. Potassium today is 5.3 and sodium continues to be low at 131. Patient continues to have an indwelling Dillard catheter and will continue at this time. Patient is having some abdominal discomfort and states that she has not had a bowel movement in a few days. Dulcolax by mouth and suppository have been ordered. 09/24/2019 In follow-up today patient is awaiting to have a cystoscopy with bilateral ureteral stent placement with urology today as her creatinine continues to elevate and is currently 4.07 with a BUN of 138. Potassium today is 5.5 and remaining on Kayexalate daily. Patient states that she had a bowel movement yesterday and abdominal discomfort has improved. Patient is quite anxious and hesitant about testing but is agreeable to the stent placement today. Currently patient denies any chest pain, shortness of breath, or palpitations. Patient is afebrile. Patient is nothing by mouth at this time for the procedure. Will continue to monitor closely. Objective - Vital Signs Vital signs: Vital Signs Temp 99.1 F 09/24/19 10:45 Pulse 81 09/24/19 10:45 Resp 16 09/24/19 10:45 BP 165/77 09/24/19 05:14 Pulse Ox 100 09/24/19 10:45 Intake & Output 09/23/19 09/24/19 09/24/19 18:59 06:59 18:59 Intake Total 1320 50 Balance 1320 50 Intake: IV 240 50 Sodium Chloride 0.9% 1, 240 000 ml @ 60 mls/hr IV . [id number] [facility] Rx#:[id number] Oral 1080 Other: Voiding Method Bedside Commode Bedside Commode Bedside Commode Diaper Diaper # Voids 4 1 1 # Bowel Movements 3 1 - Exam Gen: This is a 49-year-old female lying in bed, awake and alert 3. Temp is 97.6 F, pulse is 93, respirations are 16, blood pressure is 165/77, oxygen saturation is 90 % on 2 L via nasal cannula. HEENT: Head is atraumatic, normocephalic. Pupils equal, round. Sclerae is anicteric. NECK: Supple. No JVD. No lymphadenopathy. No thyromegaly. LUNGS: Breath sounds diminished at the bases with a few scattered rhonchi and no crackles noted. No intercostal retractions. HEART: S1, S2 are muffled ABDOMEN: Soft. Bowel sounds are present. No masses. No tenderness noted on palpation. EXTREMITIES: No pedal edema. No calf tenderness. NEUROLOGICAL: Patient is awake, alert and oriented x3. Cranial nerves 2 through 12 are grossly intact. - Labs CBC & Chem 7: 09/22/19 07:44 09/24/19 09:05 Labs: Abnormal Lab Results - Last 24 Hours (Table) 09/24/19 Range/Units 09:05 Sodium 131 L (137-145) mmol/L Potassium 5.5 H (3.5-5.1) mmol/L Chloride 92 L (98-107) mmol/L BUN 138 H* (7-17) mg/dL Creatinine 4.07 H (0.52-1.04) mg/dL Calcium 8.2 L (8.4-10.2) mg/dL Assessment and Plan Assessment: Acute severe anemia, present on admission, multifactorial possibly secondary to nutrition as well as secondary malignancy, status post multiple transfusions. No evidence of GI bleed Right breast cancer with diffuse metastases status post core biopsy Diffuse skeletal metastasis and back pain on computed tomography scan Urinary tract infection, present on admission Bilateral hydronephrosis Rule out congestive heart failure Change in mental status, possible metabolic encephalopathy, multifactorial Acute renal failure possible acute tubular necrosis as well as possible p ostobstructive uropathy with acute tubular necrosis, multifactorial, history of EtOH abuse Severe protein calorie malnutrition Hypothyroidism History of noncompliance History of depression History of nicotine dependence History of section History of chronic obstructive pulmonary disease Hyponatremia Anemia thrombocytopenia Elevated PTH Gait dysfunction Hyperkalemia Congestive heart failure with acute on chronic systolic dysfunction ejection fraction 40-50% Full code Recommendations and discussion: Recommend to continue current medications, management, and symptomatic treatment. Patient is scheduled to undergo cystoscopy and bilateral stent placement for hydronephrosis with Dr. Qureshi today. Discussed with the patient and nursing staff at length about continuing to encourage PT/OT as the patient is extremely weak and unsteady. Case management and social work are following this patient will be going to ECF once stabilized for continued PT/OT therapy. Due to multiple complex medical issues prognosis is guarded. Further recommendations to follow.
--- NOTE | 2019-09-24 15:27 | P.PN ---
Subjective Progress Note Date: 09/24/19 Principal diagnosis: Bilateral hydronephrosis No acute overnight events, denies any flank pain. Her creat is trending up, Repeat RBUS redomnstrated hydronephrosis Objective - Vital Signs Vital signs: Vital Signs Temp 98.1 F 09/24/19 13:03 Pulse 74 09/24/19 13:33 Resp 16 09/24/19 13:33 BP 158/85 09/24/19 13:33 Pulse Ox 97 09/24/19 13:33 Intake & Output 09/23/19 09/24/19 09/24/19 18:59 06:59 18:59 Intake Total 1320 1050 Output Total 1050 Balance 1320 0 Intake: IV 240 1050 Sodium Chloride 0.9% 1, 240 000 ml @ 60 mls/hr IV . [id number] PENDING SALE TO [facility] Rx#:[id number] Oral 1080 Output: Urine 1050 Estimated Blood Loss 0 Other: Voiding Method Bedside Commode Bedside Commode Bedside Commode Diaper Diaper # Voids 4 1 1 # Bowel Movements 3 1 - Gastrointestinal General gastrointestinal: Present: soft. Absent: distended - Psychiatric Psychiatric: Present: A&O x's 3 - Labs CBC & Chem 7: 09/22/19 07:44 09/24/19 09:05 Labs: Abnormal Lab Results - Last 24 Hours (Table) 09/24/19 Range/Units 09:05 Sodium 131 L (137-145) mmol/L Potassium 5.5 H (3.5-5.1) mmol/L Chloride 92 L (98-107) mmol/L BUN 138 H* (7-17) mg/dL Creatinine 4.07 H (0.52-1.04) mg/dL Calcium 8.2 L (8.4-10.2) mg/dL Assessment and Plan Assessment: 49-year-old female admitted to the hospital with weakness, poor by mouth intake, anemia with hemoglobin of 4.5 and LEO. Her creatinine is elevated at 6.88 from a baseline of 1.2. She underwent a CT that demonstrated bilateral hydronephrosis, without an obvious point of obstruction. Initially creat was trending down, now trending up. RBUS demonstrated bilateral hydro. Most recent Creat is 4.07 -OR today for cysto, bilateral stent placement. Discussed risk of bleeding, infection and injury to ureter. Also discussed risk from anesthesia
--- NOTE | 2019-09-24 15:37 | P.OP ---
Date of Procedure: 09/24/19 Preoperative Diagnosis: Bilateral hydronephrosis Postoperative Diagnosis: Same Procedure(s) Performed: Cystoscopy, bilateral retrograde pyelogram, bilateral stent placement Implants: 6Fr X 26 cm stent on the left 6Fr X 24 cm stent on the right Anesthesia: other (sedation ) Surgeon: Satish Qureshi Estimated Blood Loss (ml): 0 Pathology: none sent Condition: stable Disposition: PACU Indications for Procedure: Ms. Gant is a 49-year-old female with history of bilateral hydronephrosis. She is admitted to the hospital for acute kidney injury. Her acute kidney injury failed to improve despite Dillard catheter and hydration. Given the finding of bilateral hydronephrosis decision was made to proceed to the OR for bilateral stent placement. I discussed with her the risk which includes bleeding, infection, injury to the ureter. I also discussed with her risk from anesthesia which includes heart attack, strokes, blood clots and even loss of life. She understood all the risk and agreed to proceed Operative Findings: Bilateral severe narrowing of the ureters 2 cm away from the UVJ. Severe dilation proximal to the area of obstruction. Left sided torturous proximal ureter Description of Procedure: The patient was brought to the operating room, sedation was induced. She was prepped and draped in sterile fashion and placed in the dorsal lithotomy position. Cystoscopy fitted with a 22 sheath was inserted per urethra, cystoscopy was performed showed no abnormality within the bladder. Attention was then carried to the right ureteral orifice which was intubated with a 5- Macanese open-ended catheter. Retrograde pyelogram was performed on the right side which showed severe narrowing of approximately 1 cm, 2 cm away from the UVJ. There was proximal dilation past the area of obstruction. Initially there was some difficulty passing the wire past the area of obstruction but we were able to pass the wire up into the renal pelvis. At this time the ureteral catheter was passed over the wire and into the renal pelvis and retrograde pyelogram was performed to confirm that the wire was indeed in the renal pelvis. Of note she did show severe hydronephrosis on that side. The catheter was withdrawn with the wire in place. Next a 6-Macanese by 26 cm stent was passed over the wire the proximal curl was visualized on fluoroscopy and the distal curl was visualized on cystoscopy. Of note there was some difficulty pushing the stent past the area of obstruction Attention was then carried to the left side. Which was intubated with a 5- Macanese open-ended catheter. Retrograde pyelogram on the left side was performed which showed an area of narrowing of approximately 1 cm, which was 2 cm away from the UVJ. And there was proximal dilation of the ureter past the area of obstruction. Next a 0.035 sensor wire was advanced through the catheter and into the renal pelvis, of note there was some difficulty navigating the wire past the torturous r ureter. Next a 5-Macanese open-ended catheter was passed over the wire and a retrograde pyelogram was performed to confirm that the wire was in the renal pelvis. Of note there was severe hydronephrosis on the left side. The catheter was withdrawn with the wire in place. Next a 6-Macanese by 24 cm stent was passed over the wire. The proximal curl was visualized on fluoroscopy and the distal curl was visualized on cystoscopy. The bladder was emptied at the end of the case. A 16-Macanese Dillard catheter was placed. The patient was awakened from anesthesia and taken to recovery in stable condition
[2019-09-24] MEDS: ALPRAZolam 0.25 MG TAB PO PRN (20:53)
[2019-09-24] MEDS: HYDROcodone/APAP 5-325MG 1 EACH TAB PO PRN (20:54)
[2019-09-25] MEDS: LACTATED RINGERS 1,000 ML IV SCH (00:03)
[2019-09-25] MEDS: DEXAMETHASONE SOD PHOSPHATE 4 MG/ML 1 ML VIAL IV SCH ×4 (05:38→23:30)
[2019-09-25] MEDS: IPRATROPIUM-ALBUTEROL 3 ML NEB INHALATION SCH ×3 (08:25→20:12)
[2019-09-25] MEDS: HEPARIN SODIUM,PORCINE 5,000 UNIT/ML 1 ML VIAL SQ SCH ×2 (09:17→20:04)
[2019-09-25] MEDS: FUROSEMIDE 20 MG TAB PO SCH (09:17)
[2019-09-25] MEDS: NICOTINE 14MG/24HR PATCH TRANSDERM SCH (09:18)
[2019-09-25] MEDS: PANTOPRAZOLE 40 MG TABLET PO SCH (09:18)
[2019-09-25] MEDS: SODIUM POLYSTYRENE SULFONATE 15 GM/60 ML BOTTLE PO SCH (09:18)
[2019-09-25] MEDS: CALCIUM ACETATE 667 MG TAB PO SCH ×3 (09:18→18:05)
[2019-09-25] MEDS: LETROZOLE 2.5 MG TAB PO SCH (09:21)
[2019-09-25 11:46] LABS: Calcium 8.9 mg/dL (8.4-10.2); Potassium 4.6 mmol/L (3.5-5.1)
--- NOTE | 2019-09-25 12:30 | P.PN ---
Subjective Progress Note Date: 09/25/19 Follow-up for acute kidney injury. Creatinine improving after cystoscopy with stent placement. Objective - Vital Signs Vital signs: Vital Signs Temp 97.6 F 09/25/19 11:17 Pulse 86 09/25/19 11:17 Resp 18 09/25/19 11:17 BP 144/74 09/25/19 11:17 Pulse Ox 92 L 09/25/19 11:17 Intake & Output 09/24/19 09/25/19 09/25/19 18:59 06:59 18:59 Intake Total 1050 Output Total 1450 2700 675 Balance -400 -2700 -675 Intake: IV 1050 Output: Urine 1450 2700 675 Estimated Blood Loss 0 Other: Voiding Method Indwelling Catheter Indwelling Catheter Indwelling Catheter # Voids 1 # Bowel Movements 1 - Exam No acute distress S1-S2 heard Lungs clear No edema - Labs CBC & Chem 7: 09/22/19 07:44 09/25/19 11:22 Labs: Abnormal Lab Results - Last 24 Hours (Table) 09/25/19 Range/Units 11:22 Sodium 133 L (137-145) mmol/L BUN 92 H (7-17) mg/dL Creatinine 1.98 H (0.52-1.04) mg/dL Glucose 100 H (74-99) mg/dL Assessment and Plan Assessment: #1 nonoliguric acute kidney injury secondary to obstructive uropathy with bilateral hydronephrosis #2 metastatic breast cancer #3 acute blood loss anemia #4 hyperphosphatemia secondary to acute kidney injury Plan: #1 renal function improving status post stents. #2 stop Lasix #3 monitor renal function closely #4 avoid nephrotoxic agents and hypotensive episodes #4 appreciate urology input
--- NOTE | 2019-09-25 13:17 | P.PN ---
Subjective Progress Note Date: 09/25/19 Principal diagnosis: Bilateral hydronephrosis POD #1 S/P Bilaterta urteral stent placement. Creat improving to 1.9 post stent placement. Denies any flank pain or any urinary symptoms Objective - Vital Signs Vital signs: Vital Signs Temp 97.6 F 09/25/19 11:17 Pulse 86 09/25/19 11:17 Resp 18 09/25/19 11:17 BP 144/74 09/25/19 11:17 Pulse Ox 92 L 09/25/19 11:17 Intake & Output 09/24/19 09/25/19 09/25/19 18:59 06:59 18:59 Intake Total 1050 Output Total 1450 2700 675 Balance -400 -2700 -675 Intake: IV 1050 Output: Urine 1450 2700 675 Estimated Blood Loss 0 Other: Voiding Method Indwelling Catheter Indwelling Catheter Indwelling Catheter # Voids 1 # Bowel Movements 1 - Gastrointestinal General gastrointestinal: Present: soft. Absent: tenderness - Psychiatric Psychiatric: Absent: A&O x's 3 - Labs CBC & Chem 7: 09/22/19 07:44 09/25/19 11:22 Labs: Abnormal Lab Results - Last 24 Hours (Table) 09/25/19 Range/Units 11:22 Sodium 133 L (137-145) mmol/L BUN 92 H (7-17) mg/dL Creatinine 1.98 H (0.52-1.04) mg/dL Glucose 100 H (74-99) mg/dL Assessment and Plan Assessment: 49-year-old female admitted to the hospital with weakness, poor by mouth intake, anemia with hemoglobin of 4.5 and LEO. Her creatinine is elevated at 6.88 from a baseline of 1.2. She underwent a CT that demonstrated bilateral hydronephrosis, without an obvious point of obstruction. Initially creat was trending down, now trending up. RBUS demonstrated bilateral hydro. She is S/P bilateral ureteral stent placement on 09/24/19. Of note she had severe narrowing of bilateral distal ureters. Creat 1.9 post stent placement. -Continue to trend creat -Keep del rio in place -Stent will stay in place now, she will need bilateral diagnostic ureteroscopy to better evaluate the obstruction as an outpatient in 4 weeks.
--- NOTE | 2019-09-25 17:44 | PN ---
PROGRESS NOTE DATE OF SERVICE: 09/25/2019 This 49-year-old woman was admitted with acute severe anemia also had metastatic breast cancer which is ER/TN positive, HER2 negative. Final confirmation is pending at this time. Dr. Zamorano is following the patient closely. Of note, the patient also had renal failure which is multifactorial including postobstructive as well as prerenal acute tubular necrosis. With conservative line of management, the creatinine has improved significantly. Today it is 1.98, significantly improved after bilateral ureteral stent placement by Dr. George. The patient possibly had ureteral stenosis or possibly extrinsic compression even from the tumor per Dr. Zamorano with whom I discussed care at length. Apparently the patient refused some of the evaluations and Dr. Zamorano is also planning probably an MRI scan or PET scan down the line in case of consideration for possible radiation. Overall, the prognosis significantly guarded. The patient also had significant issues with home situation with home support and patient also has history of noncompliance. Previous history of alcohol intake. The patient also had metabolic encephalopathy. The patient is confused on and off. The patient being closely monitored. Patient also, as mentioned has hyperkalemia, which is improved today at 4.6 at this time. PAST MEDICAL HISTORY: Reviewed. REVIEW OF SYSTEMS: CARDIOVASCULAR SYSTEM: No angina or palpitations. RESPIRATORY: As mentioned earlier. GI: As mentioned earlier. : No numbness or weakness. CENTRAL NERVOUS SYSTEM: No numbness or weakness. CURRENT MEDICATIONS: Reviewed and include: 1. Tylenol p.r.n. 2. [place] 5 mg q.6h p.r.n. 3. DuoNeb q.i.d. and p.r.n. 4. Xanax 0.5 t.i.d. 5. Dulcolax 10 mg p.o. daily. 6. PhosLo 667 t.i.d. 7. Rocephin 1 g IV daily. 8. Decadron 4 mg IV q.6h. 9. Heparin. 10.Femara. 11.Letrozole 2.5 mg daily. 12.Narcan 0.2 q.2 p.r.n. 13.Habitrol 14 daily. 14.Protonix 40 daily. 15.Kayexalate 30 g p.o. daily. PHYSICAL EXAM: Patient is alert, oriented x2. Pulse 86, blood pressure 144/70, respirations 18, temperature 97.6, pulse ox 98% on 4 L. HEENT: Conjunctivae normal. NECK: No JVD. CARDIOVASCULAR: S1, S2 muffled. RESPIRATORY SYSTEM: Breath sounds diminished at the bases. Scattered rhonchi and crackles. ABDOMEN: Soft, nontender. No mass palpable. LEGS: No edema. No swelling. NERVOUS SYSTEM: Diffusely weak. LABS: WBC 6.3, hemoglobin 8.4, sodium 130, potassium 4.6. Creatinine is 1.98. ASSESSMENT: 1. Acute severe anemia, present on admission, possibly multifactorial secondary to nutritional as well as secondary to malignancy with status post multiple transfusions. No evidence of acute gastrointestinal bleed. 2. Right breast cancer with diffuse METS, ERPR positive and HER2 negative possibly. 3. Acute renal failure possibly multifactorial with acute tubular necrosis with prerenal acute renal failure and as well as postobstructive renal failure status post ureteral stents. 4. Hyperkalemia secondary to renal failure. 5. Diffuse skeletal metastasis and back pain on the CT scan. 6. Urinary tract infection, present on admission. 7. Bilateral hydronephrosis. 8. Change in mental status, metabolic encephalopathy, multifactorial, acute. 9. History of EtOH abuse. 10.Severe protein calorie malnutrition. 11.Hypothyroidism. 12.History of noncompliance. 13.History of depression. History of nicotine dependence. 14.History of section. 15.Hyponatremia. 16.Anemia. 17.Thrombocytopenia. 18.Elevated PTH. 19.Gait dysfunction. 20.Hyperkalemia. 21.Congestive heart failure with acute on chronic systolic dysfunction, ejection fraction 40-50 percent. 22.FULL CODE. RECOMMENDATIONS AND DISCUSSION: In this 49-year-old woman who presented with multiple complex medical issues as listed above, at this time I recommend to continue the current medications, management and symptomatic treatment. The potassium is improved significantly. Creatinine is also improved significantly. I would stop the Kayexalate on a daily dose and we will monitor the patient on a daily basis. Otherwise, repeat labs are also will be ordered. Otherwise as mentioned earlier I discussed the case with Hematology/Oncology and as well as Urology. Urology would like to follow up the patient in the outpatient setting. The cultures are negative so far. Hematology/oncology is awaiting HER2 testing with fish testing and I would recommend continue the current medications and PT/OT evaluation, possible ECF rehab. Guarded prognosis because of multiple complex medical issues and further recommendations to follow. MMODL / IJN: [id number] /
[2019-09-25] MEDS: ALPRAZolam 0.25 MG TAB PO PRN (20:44)
[2019-09-25] MEDS: HYDROcodone/APAP 5-325MG 1 EACH TAB PO PRN (22:40)
[2019-09-26] MEDS: LACTATED RINGERS 1,000 ML IV SCH ×2 (00:45→23:07)
[2019-09-26] MEDS: DEXAMETHASONE SOD PHOSPHATE 4 MG/ML 1 ML VIAL IV SCH ×4 (05:45→23:38)
[2019-09-26] MEDS: IPRATROPIUM-ALBUTEROL 3 ML NEB INHALATION SCH ×3 (07:15→21:11)
[2019-09-26 07:38] LABS: Anisocytosis Slight; Basophils # (A) 0.1 k/uL (0-0.2); Basophils % (A) 1 %; Eosinophils % (A) 1 %; HCT 25.6 % (34.0-46.0); HGB 8.2 gm/dL (11.4-16.0); Hypochromasia Slight; Lymphocytes # (A) 0.7 k/uL (1.0-4.8); Lymphocytes % (A) 16 %; MCH 28.8 pg (25.0-35.0); MCHC 32.1 g/dL (31.0-37.0); MCV 89.6 fL (80.0-100.0); Mean Platelet Volume 7.7; Monocytes # (A) 0.1 k/uL (0-1.0); Monocytes % (A) 2 %; Neutrophils # (A) 3.5 k/uL (1.3-7.7); Neutrophils % (A) 78 %; Platelet Count 285 k/uL (150-450); RBC 2.85 m/uL (3.80-5.40); RDW 16.8 % (11.5-15.5); WBC 4.5 k/uL (3.8-10.6)
[2019-09-26] MEDS: CALCIUM ACETATE 667 MG TAB PO SCH ×3 (07:57→17:58)
[2019-09-26] MEDS: HEPARIN SODIUM,PORCINE 5,000 UNIT/ML 1 ML VIAL SQ SCH ×2 (07:57→20:37)
[2019-09-26] MEDS: NICOTINE 14MG/24HR PATCH TRANSDERM SCH (07:57)
[2019-09-26] MEDS: LETROZOLE 2.5 MG TAB PO SCH (07:57)
[2019-09-26] MEDS: PANTOPRAZOLE 40 MG TABLET PO SCH (07:58)
[2019-09-26 08:02] LABS: Calcium 8.8 mg/dL (8.4-10.2); Potassium 4.7 mmol/L (3.5-5.1)
[2019-09-26] MEDS ORDERED: BISACODYL 10 MG SUPP RECTAL PRN (11:00)
--- NOTE | 2019-09-26 11:46 | P.PN ---
Subjective Progress Note Date: 09/26/19 Follow-up for acute kidney injury. Creatinine improving after cystoscopy with stent placement. Objective - Vital Signs Vital signs: Vital Signs Temp 97.8 F 09/26/19 05:49 Pulse 84 09/26/19 07:23 Resp 18 09/26/19 05:49 BP 164/79 09/26/19 05:49 Pulse Ox 92 L 09/26/19 05:49 Intake & Output 09/25/19 09/26/19 09/26/19 18:59 06:59 18:59 Intake Total 240 Output Total 1650 1250 Balance -1410 -1250 Intake: Oral 240 Output: Urine 1650 1250 Other: Voiding Method Indwelling Catheter Indwelling Catheter Indwelling Catheter # Voids 1 - Exam No acute distress S1-S2 heard Lungs clear No edema - Labs CBC & Chem 7: 09/26/19 07:10 09/26/19 07:10 Labs: Abnormal Lab Results - Last 24 Hours (Table) 09/25/19 09/26/19 09/26/19 Range/Units 11:22 07:10 07:10 RBC 2.85 L (3.80-5.40) m/uL Hgb 8.2 L (11.4-16.0) gm/dL Hct 25.6 L (34.0-46.0) % RDW 16.8 H (11.5-15.5) % Lymphocytes # 0.7 L (1.0-4.8) k/uL Sodium 133 L 134 L (137-145) mmol/L BUN 92 H 72 H (7-17) mg/dL Creatinine 1.98 H 1.44 H (0.52-1.04) mg/dL Glucose 100 H 100 H (74-99) mg/dL Assessment and Plan Assessment: #1 nonoliguric acute kidney injury secondary to obstructive uropathy with bilateral hydronephrosis #2 metastatic breast cancer #3 acute blood loss anemia #4 hyperphosphatemia secondary to acute kidney injury Plan: #1 renal function improving status post stents. #2 monitor renal function closely #3 avoid nephrotoxic agents and hypotensive episodes #4 appreciate urology input
[2019-09-26] MEDS: DOCUSATE 100 MG CAP PO SCH ×2 (12:39→20:38)
--- NOTE | 2019-09-26 12:43 | P.PN ---
Subjective Progress Note Date: 09/26/19 Principal diagnosis: Bilateral hydronephrosis POD #2 S/P Bilaterta urteral stent placement. Creat improving to 1.4 post stent placement. Denies any flank pain or any urinary symptoms Objective - Vital Signs Vital signs: Vital Signs Temp 97.8 F 09/26/19 05:49 Pulse 84 09/26/19 07:23 Resp 18 09/26/19 05:49 BP 164/79 09/26/19 05:49 Pulse Ox 92 L 09/26/19 05:49 Intake & Output 09/25/19 09/26/19 09/26/19 18:59 06:59 18:59 Intake Total 240 Output Total 1650 1250 Balance -1410 -1250 Intake: Oral 240 Output: Urine 1650 1250 Other: Voiding Method Indwelling Catheter Indwelling Catheter Indwelling Catheter # Voids 1 - Labs CBC & Chem 7: 09/26/19 07:10 09/26/19 07:10 Labs: Abnormal Lab Results - Last 24 Hours (Table) 09/26/19 09/26/19 Range/Units 07:10 07:10 RBC 2.85 L (3.80-5.40) m/uL Hgb 8.2 L (11.4-16.0) gm/dL Hct 25.6 L (34.0-46.0) % RDW 16.8 H (11.5-15.5) % Lymphocytes # 0.7 L (1.0-4.8) k/uL Sodium 134 L (137-145) mmol/L BUN 72 H (7-17) mg/dL Creatinine 1.44 H (0.52-1.04) mg/dL Glucose 100 H (74-99) mg/dL Assessment and Plan Assessment: 49-year-old female admitted to the hospital with weakness, poor by mouth intake, anemia with hemoglobin of 4.5 and LEO. Her creatinine is elevated at 6.88 from a baseline of 1.2. She underwent a CT that demonstrated bilateral hydronephrosis, without an obvious point of obstruction. Initially creat was trending down, now trending up. RBUS demonstrated bilateral hydro. She is S/P bilateral ureteral stent placement on 09/24/19. Of note she had severe narrowing of bilateral distal ureters. Creat 1.9 post stent placement. Creat 1.4 today -Continue to trend creat -D/C del rio and obtain a PVR after patient voids -Stent will stay in place now, she will need bilateral diagnostic ureteroscopy to better evaluate the obstruction as an outpatient in 4 weeks. -OK for discharge from urology standpoint
[2019-09-26] MEDS: ALPRAZolam 0.25 MG TAB PO PRN (18:12)
--- NOTE | 2019-09-26 19:48 | P.PN ---
Subjective Progress Note Date: 09/25/19 The pt is s/p ureteral stent placement. The pt denied any new complaints. No f/c/n/v/LAD. Back pain is controlled. LE weakness persists. R > L. Objective - Vital Signs Vital signs: Vital Signs Temp 98 F 09/26/19 12:51 Pulse 80 09/26/19 13:39 Resp 18 09/26/19 05:49 BP 163/81 09/26/19 12:51 Pulse Ox 98 09/26/19 12:51 Intake & Output 09/26/19 09/26/19 09/27/19 06:59 18:59 06:59 Output Total 1250 900 Balance -1250 -900 Output: Urine 1250 900 Other: Voiding Method Indwelling Catheter Indwelling Catheter # Voids 1 # Bowel Movements 1 - Constitutional General appearance: Present: no acute distress - EENT Eyes: Present: EOMI ENT: Present: hearing grossly normal, normal oropharynx - Respiratory Respiratory: bilateral: CTA - Cardiovascular Rhythm: regular Heart sounds: normal: S1, S2 - Gastrointestinal General gastrointestinal: Present: normal bowel sounds, soft - Integumentary Integumentary: Present: normal - Neurologic Neurologic: Present: CNII-XII intact - Musculoskeletal Musculoskeletal Comment(s): b/L LE weakness, R > l Mild numbness lower abdomen, upper ant LE Musculoskeletal: Present: right sided weakness - Labs CBC & Chem 7: 09/26/19 07:10 09/26/19 07:10 Labs: Abnormal Lab Results - Last 24 Hours (Table) 09/26/19 09/26/19 Range/Units 07:10 07:10 RBC 2.85 L (3.80-5.40) m/uL Hgb 8.2 L (11.4-16.0) gm/dL Hct 25.6 L (34.0-46.0) % RDW 16.8 H (11.5-15.5) % Lymphocytes # 0.7 L (1.0-4.8) k/uL Sodium 134 L (137-145) mmol/L BUN 72 H (7-17) mg/dL Creatinine 1.44 H (0.52-1.04) mg/dL Glucose 100 H (74-99) mg/dL Assessment and Plan (1) Metastatic breast cancer Narrative/Plan: Pt on Femara. awaiting HER 2 status. If negative, start CDK4/6 inhibitor, which is an all oral regimen. She will also be on IV bisphosphonate or Zometa for her bone mets Current Visit: Yes Status: Acute Code(s): C50.919 - MALIGNANT NEOPLASM OF UNSP SITE OF UNSPECIFIED FEMALE BREAST SNOMED Code(s): 163409805 (2) Acute renal failure Narrative/Plan: s/p ureteral stent placement. Await labs to check for improvement. Op report reviewed. Based on that , suspect tumor posterior to bladder. D/W admitting service in detail. At this time, optimal imaging of this area is not possible. The pt is not a candidate for any contrast study ( Ct or MRI) due to her RI. An option can be PET as an outpt, or a contrast study inpt if Cr improves. Pt however continues to refuse MRI - If a lesion can be identified in this area, that would explain her other symptoms of LE weakness, numbness, as well as her urinary/bowel complaints. In that case she can be a candidate for palliative RT Current Visit: Yes Status: Acute Priority: High Code(s): N17.9 - ACUTE KIDNEY FAILURE, UNSPECIFIED SNOMED Code(s): 47940748 (3) Lower extremity weakness Narrative/Plan: As above. Continue PT. Pt encouraged to continue to work with PT. LP to r/o leptomeningeal involvement again discussed. Currently she is agreeable to it. Will order it for 09/27 Current Visit: Yes Status: Acute Code(s): R29.898 - OTH SYMPTOMS AND SIGNS INVOLVING THE MUSCULOSKELETAL SYSTEM SNOMED Code(s): 038153944
--- NOTE | 2019-09-26 20:51 | P.PN ---
Subjective Progress Note Date: 09/26/19 the pt denied any new symptoms. No f/c/n/v/LAD. No obvious bleeding. Pain is controlled. LE swelling is improved Objective - Vital Signs Vital signs: Vital Signs Temp 98 F 09/26/19 12:51 Pulse 80 09/26/19 13:39 Resp 18 09/26/19 05:49 BP 163/81 09/26/19 12:51 Pulse Ox 98 09/26/19 12:51 Intake & Output 09/26/19 09/26/19 09/27/19 06:59 18:59 06:59 Output Total 1250 900 Balance -1250 -900 Output: Urine 1250 900 Other: Voiding Method Indwelling Catheter Indwelling Catheter # Voids 1 # Bowel Movements 1 - Constitutional General appearance: Present: no acute distress - EENT Eyes: Present: EOMI ENT: Present: hearing grossly normal, normal oropharynx - Respiratory Respiratory: bilateral: CTA - Cardiovascular Rhythm: regular Heart sounds: normal: S1, S2 - Gastrointestinal General gastrointestinal: Present: normal bowel sounds, soft - Integumentary Integumentary: Present: normal - Neurologic Neurologic Comment(s): mild sensory loss lower abdomen, upper LE. LLE prox 4-4+/5, distal 3-3+/5. RLE prox 3+/5 ( improved today), distal 4/5 Neurologic: Present: CNII-XII intact - Musculoskeletal Musculoskeletal: Present: right sided weakness - Psychiatric Psychiatric: Present: A&O x's 3 - Labs CBC & Chem 7: 09/26/19 07:10 09/26/19 07:10 Labs: Abnormal Lab Results - Last 24 Hours (Table) 09/26/19 09/26/19 Range/Units 07:10 07:10 RBC 2.85 L (3.80-5.40) m/uL Hgb 8.2 L (11.4-16.0) gm/dL Hct 25.6 L (34.0-46.0) % RDW 16.8 H (11.5-15.5) % Lymphocytes # 0.7 L (1.0-4.8) k/uL Sodium 134 L (137-145) mmol/L BUN 72 H (7-17) mg/dL Creatinine 1.44 H (0.52-1.04) mg/dL Glucose 100 H (74-99) mg/dL Assessment and Plan (1) Metastatic breast cancer Narrative/Plan: Symptomatically stable. On Femara. Awaiting HER 2 FISH for final treatment plan. If pt will be on an all oral regimen ( AI/CDK4-6 Inhibitor) she can hopefully receive this even at an ECF. Current Visit: Yes Status: Acute Code(s): C50.919 - MALIGNANT NEOPLASM OF UNSP SITE OF UNSPECIFIED FEMALE BREAST SNOMED Code(s): 098534927 (2) Acute renal failure Narrative/Plan: marked improvement in Cr post stent placement. This is 1.44 today. If further improvement, we can order contrast imaging to assess the lower spine/pelvis. Continue to monitor Current Visit: Yes Status: Acute Priority: High Code(s): N17.9 - ACUTE KIDNEY FAILURE, UNSPECIFIED SNOMED Code(s): 42917418 (3) Lower extremity weakness Narrative/Plan: Suspect lower spine/pelvic mets ( posterior to bladder) Discussed LP again with pt. She is willing for the same ( currently), and this will be ordered. Plan additional contrast imaging if Cr continues to improve. MRI would be ideal , but pt continues to refuse the same. In that case Ct with contrast can be considered Current Visit: Yes Status: Acute Code(s): R29.898 - OTH SYMPTOMS AND SIGNS INVOLVING THE MUSCULOSKELETAL SYSTEM SNOMED Code(s): 426008817
[2019-09-26] MEDS: ACETAMINOPHEN TAB 325 MG TAB PO PRN (22:15)
--- NOTE | 2019-09-26 23:37 | PN ---
PROGRESS NOTE DATE OF SERVICE: 09/26/2019 This 49-year-old woman was admitted with metastatic breast cancer, is being closely monitored at this time. The patient had bilateral ureteral stent. Creatinine is improved significantly. Patient also had significant protein calorie malnutrition, possible multiple metastatic lesion also considered at this time. Hematology/Oncology following the patient closely. ECF rehab is being planned. No chest pain. No palpitations. No fever. EXAM: Alert and oriented times three. Pulse 80. Blood pressure 160/81, respirations 20. Temperature 98 degrees, pulse ox 98% on room air. HEENT: Conjunctivae normal. NECK: No JVD. CARDIOVASCULAR: S1, S2. RESPIRATIONS: Breath sounds diminished in the bases. No rhonchi. No crackles. ABDOMEN is soft, nontender. LEGS are no edema. No swelling. Nervous system: Diffusely weak and wasted. LAB STUDIES: WBC 4.3, hemoglobin is 8.2, sodium 134, potassium 4.7, creatinine is 1.44. ASSESSMENT: 1. Acute severe anemia, present on admission, possibly multifactorial secondary to nutritional as well as secondary to malignancy with status post multiple transfusions. No evidence of any acute gastrointestinal bleed. 2. Right breast cancer with ERPR positive and hep 2- negative possibly with mets. 3. Acute renal failure possibly multifactorial with acute tubular necrosis with prerenal acute renal failure and as well as postobstructive renal failure, status post bilateral ureteral stents. 4. Hyperkalemia secondary to renal failure. 5. Diffuse scattered metastasis and back pain in the CT scan. 6. Urinary tract infection, present on admission. 7. Bilateral hydronephrosis status post ureteric stent. 8. Change in mental status, metabolic encephalopathy, acute, multifactorial. 9. History of EtOH abuse. 10.Severe protein calorie malnutrition. 11.Hypothyroidism. 12.History of noncompliance. 13.History of depression. 14.History of nicotine dependence. 15.History of section. 16.Hyponatremia. 17.Anemia. 18.Thrombocytopenia. 19.Elevated PTH. 20.Gait dysfunction. 21.Hyperkalemia. 22.Congestive heart failure with chronic systolic dysfunction ejection fraction 40-50 percent. 23.FULL CODE. RECOMMENDATIONS AND DISCUSSION: In this 49-year-old woman who presented with multiple complex medical issues, we will monitor the patient closely. Continue the current medications, management and symptomatic treatment. Otherwise, at this time, I recommend continue the PT/OT evaluation. Monitor creatinine. The potassium has normalized at this time. We will continue to monitor. PT/OT evaluation and once cleared by multiple consultants, patient should be considered for ECF rehab. Prognosis guarded. Further recommendations to follow. CARLOZ / JEFFY: [id number] /
[2019-09-27] MEDS: DEXAMETHASONE SOD PHOSPHATE 4 MG/ML 1 ML VIAL IV SCH ×4 (05:57→23:39)
[2019-09-27 06:21] VITALS: RESP 18
[2019-09-27] MEDS: ACETAMINOPHEN TAB 325 MG TAB PO PRN (06:21)
[2019-09-27] MEDS: IPRATROPIUM-ALBUTEROL 3 ML NEB INHALATION SCH ×3 (07:29→21:30)
[2019-09-27] MEDS: HEPARIN SODIUM,PORCINE 5,000 UNIT/ML 1 ML VIAL SQ SCH ×2 (08:34→19:59)
[2019-09-27] MEDS: NICOTINE 14MG/24HR PATCH TRANSDERM SCH (08:38)
[2019-09-27] MEDS: LETROZOLE 2.5 MG TAB PO SCH (08:39)
[2019-09-27] MEDS: DOCUSATE 100 MG CAP PO SCH ×2 (08:40→19:59)
[2019-09-27] MEDS: PANTOPRAZOLE 40 MG TABLET PO SCH (08:40)
[2019-09-27] MEDS: CALCIUM ACETATE 667 MG TAB PO SCH ×3 (08:40→17:37)
[2019-09-27 08:44] LABS: Anisocytosis Slight; Basophils # (A) 0.1 k/uL (0-0.2); Basophils % (A) 2 %; Eosinophils % (A) 1 %; HCT 25.3 % (34.0-46.0); HGB 8.1 gm/dL (11.4-16.0); Hypochromasia Slight; Lymphocytes # (A) 0.8 k/uL (1.0-4.8); Lymphocytes % (A) 15 %; MCH 28.6 pg (25.0-35.0); MCHC 31.9 g/dL (31.0-37.0); MCV 89.7 fL (80.0-100.0); Mean Platelet Volume 8.6; Monocytes # (A) 0.2 k/uL (0-1.0); Monocytes % (A) 4 %; Neutrophils # (A) 3.8 k/uL (1.3-7.7); Neutrophils % (A) 76 %; Platelet Count 297 k/uL (150-450); RBC 2.82 m/uL (3.80-5.40)
[2019-09-27 08:45] LABS: Calcium 8.9 mg/dL (8.4-10.2); Potassium 4.6 mmol/L (3.5-5.1)
[2019-09-27] MEDS: ALPRAZolam 0.25 MG TAB PO PRN ×2 (10:33→19:59)
[2019-09-27] MEDS: IOPAMIDOL CONTRAST (ORAL USE) VIAL PO PRN ×2 (10:33→11:44)
--- NOTE | 2019-09-27 11:18 | P.PN ---
Subjective Progress Note Date: 09/27/19 Principal diagnosis: breast mass, bone lesions-HR + metastatic breast cancer In f/u today initially pt states better appetite and in general feeling better. As we discussed completing testing (LP and CT scans with contrast) and plans [facility] she started having trouble keeping track of what was happening, forgetting from one moment to the next what we had just discussed. She is tolerating the femara without SE, no fevers, she thinks the skin on her breast is healing, no nausea, ABDULLAHI, abd pain, still incontinent of bowel and bladder, no numbness or tingling, back pain is stable. Objective - Vital Signs Vital signs: Vital Signs Temp 97.5 F L 09/27/19 05:00 Pulse 84 09/27/19 07:47 Resp 18 09/27/19 05:00 BP 161/78 09/27/19 05:00 Pulse Ox 96 09/27/19 05:00 Intake & Output 09/26/19 09/27/19 09/27/19 18:59 06:59 18:59 Output Total 900 Balance -900 Output: Urine 900 Other: Voiding Method Indwelling Catheter Indwelling Catheter # Voids 1 3 # Bowel Movements 1 - Constitutional General appearance: Present: cooperative, mild distress, thin - EENT Eyes: Present: anicteric sclerae, EOMI ENT: Present: hearing grossly normal - Neck Neck: Present: lymphadenopathy - Respiratory Respiratory: bilateral: CTA - Cardiovascular Rhythm: regular Heart sounds: normal: S1, S2 Abnormal Heart Sounds: Absent: systolic murmur, diastolic murmur, rub, S3 Gallop , S4 Gallop, click, other - Peripheral edema leg Peripheral Edema: bilateral: None - Gastrointestinal General gastrointestinal: Present: normal bowel sounds, soft. Absent: absent bowel sounds, decreased bowel sounds, distended, hepatomegaly, hyperactive bowel sounds, organomegaly, rigid, scaphoid, splenomegaly, tenderness, umbilical hernia, ventral hernia - Integumentary Integumentary: Present: decreased turgor, normal - Neurologic Neurologic: Present: CNII-XII intact - Musculoskeletal Musculoskeletal: Present: generalized weakness (BLE, L>R) - Psychiatric Psychiatric: Present: A&O x's 3. Absent: appropriate affect, intact judgment & insight - Labs CBC & Chem 7: 09/27/19 07:29 09/27/19 07:29 Labs: Abnormal Lab Results - Last 24 Hours (Table) 09/27/19 09/27/19 Range/Units 07:29 07:29 RBC 2.82 L (3.80-5.40) m/uL Hgb 8.1 L (11.4-16.0) gm/dL Hct 25.3 L (34.0-46.0) % RDW 17.0 H (11.5-15.5) % Lymphocytes # 0.8 L (1.0-4.8) k/uL Sodium 132 L (137-145) mmol/L BUN 53 H (7-17) mg/dL Creatinine 1.19 H (0.52-1.04) mg/dL Assessment and Plan (1) Metastatic breast cancer Narrative/Plan: Pt had breast masses identified a month ago, states stresses in her life have kept her from following up. Tumor markers returned, both >600 Bone mets incidentally found. NM bone scan reported as metastatic disease widespread in both axial and appendicular skeleton. Dex started. MRI spine ordered because of incontinence and concerns for cord compression, cervical spin e completed, interestingly, no mets reported. Pt unable to tolerate/refuses MRI. CT T&L spine without contrast showed diffuse osteoblastic changes consistent with advanced metastatic disease, no compression fx, cord compression. Concern is for a leptomeningeal spread of cancer causing symptoms. Patient consented to LP, kidney function is ok to do a CT. Both ordered for today prior to discharge. No radiation planned at this time as pt has no specific areas of pain to treat, pending imaging. Follow up outpatient, pending release from ECF. Pt needs to get moving. She has unsteady gait from bone mets/pain, laying in bed for 14 days. Agree with ECF/rehab. Have requested wheeled seated walker to assist with ambulation and safety. ER/[place] +-femara, Rx started, please continue. Her2 equivocal, sent for FISH. This will determine what our treatment of choice will be - Her2 target vs CDK4/6 for Her 2 negative. Did have Case Manger discuss with ECF, where pt is going to be staying until she can find permanent residency, if we get free oral drug from [facility]. can it be given in that setting, and it can be. If pt cancer requires IV then this will be postponed until pt has been [facility] F/U Dr. Hemphill in 3 days Tapering steroid Rx Current Visit: Yes Status: Acute Code(s): C50.919 - MALIGNANT NEOPLASM OF UNSP SITE OF UNSPECIFIED FEMALE BREAST SNOMED Code(s): 732259135 (2) Anemia Narrative/Plan: Anemia is likely multifactorial, noted as far back as 2017. Pt has received 3 units of PRBCs with appropriate increase in Hgb, stable since. This will continue to be followed outpatient Current Visit: Yes Status: Acute Priority: High Code(s): D64.9 - ANEMIA, UNSPECIFIED SNOMED Code(s): 627455159 (3) Acute renal failure Narrative/Plan: Significantly improved post stent placement. Pt will have to follow with Urology for exchange at appropriate times CT with contrast has been ordered. If mechanical obstruction from tumor maybe with treatment this can be relieved and stents could be removed. Can only wait for treatment Current Visit: Yes Status: Acute Priority: High Code(s): N17.9 - ACUTE KIDNEY FAILURE, UNSPECIFIED SNOMED Code(s): 47764172 Plan: malcolm VERDUGO for DC post procedure/scan from Onc standpoint. Rx and appts in DC summary
[2019-09-27] MEDS: HYDROcodone/APAP 5-325MG 1 EACH TAB PO PRN (11:57)
--- NOTE | 2019-09-27 13:11 | FL ---
Fluoroscopy INDICATION: Metastatic breast cancer FINDINGS: Patient presented for lumbar puncture for CSF analysis. The procedure was explained to the patient, a ll questions were answered. Timeout was performed. Attempts to place the patient into a safe imaging position of the prone nature were unsuccessful. Pat ient discomfort, anxiety, and physical ability prevented positioning for successful set up. This was further complicated by CT performed just prior to bringing the patient to fluoroscopy. Oral contrast performed for the CT chest abdomen pelvis are presented good visualization of the spine. The procedur e was terminated prior to skin marking. Fluoroscopy time: 2 seconds. Images obtained: 0. IMPRESSIONS: 1. Lumbar puncture terminated prior to marking the skin. Recommendations: 1. Recommend anesthesia consult for lumbar puncture, lateral decubitus positioning may be tolerated b y the patient.
--- NOTE | 2019-09-27 13:11 | P.DS ---
Providers Date of admission: 09/13/19 17:24 Expected date of discharge: 09/27/19 Attending physician: Helen Montenegro Consults: 09/13/19 17:25 Consult Physician Routine Consulting Provider: Denise Bishop Consult Reason/Comments: Concern for breast cancer Do you want consulting provider notified?: Yes Consult Physician Routine Consulting Provider: Inna Wolff Consult Reason/Comments: Acute renal failure Do you want consulting provider notified?: Yes Consult Physician Urgent Consulting Provider: Bennie Zamorano Consult Reason/Comments: Concern for metastatic cancer Do you want consulting provider notified?: Yes 09/13/19 17:33 Consult Physician Routine Consulting Provider: Allen Sanz Consult Reason/Comments: ICU management Do you want consulting provider notified?: Already Contacted 09/14/19 08:30 Consult Physician Urgent Consulting Provider: Satish Qureshi Consult Reason/Comments: Bilateral hydronephrosis Do you want consulting provider notified?: Yes 09/15/19 18:13 Consult Physician Routine Consulting Provider: Arsenio Olsen Consult Reason/Comments: symptomatic bone mets (pending bx results) Do you want consulting provider notified?: Yes, Notify in am 09/23/19 10:12 Consult Physician Urgent Consulting Provider: Ethan Duran Consult Reason/Comments: possible stent, worsening creat Do you want consulting provider notified?: Yes Primary care physician: Ashleigh Fung [facility] Course: Final diagnosis Acute severe anemia, present on admission, possibly multifactorial secondary to nutritional as well as secondary to malignancy was status post multiple transfusions. No evidence of any acute GI bleed Right breast cancer with ER/ND positive and HER-2 negative possibly with metastases Acute renal failure possibly multifactorial with acute tubular necrosis with prerenal acute renal failure and as well as postobstructive renal failure, status post bilateral ureteral stents Hyperkalemia secondary to renal failure Diffuse scattered metastasis and back pain and the computed tomography scan Urinary tract infection, present on admission Bilateral hydronephrosis status post ureteral stents Change in mental status, metabolic encephalopathy, acute, multifactorial History of EtOH abuse severe protein calorie malnutrition Hypothyroidism History of noncompliance history of depression History of nicotine dependence History of section Hyponatremia Anemia thrombocytopenia Elevated PTH Gait dysfunction Hyperkalemia Congestive heart failure with chronic systolic dysfunction ejection fraction 40- 50% Full code Discharge disposition Patient is being discharged in a stable condition with guarded prognosis to metabolic of [place] for continued PT/OT therapy. Patient will follow-up with Dr. Sotelo in the outpatient setting upon discharge. She will also follow-up with urology as well as oncology in the outpatient setting. Total time taken is 35 minutes. History of present illness This is a 49-year-old male who was recently admitted with metastatic breast cancer and is being closely monitored. During hospitalization patient also had worsening kidney functions and creatinine continue to worsen and was found to arreaga ve bilateral hydronephrosis. Urology and nephrology were following the patient closely. Patient had bilateral ureteral stent placement showing marked improvement in her creatinine. She will continue with an indwelling Dillard catheter until follow-up with urologist. Patient is also having significant protein calorie malnutrition, possible multiple metastatic lesions is also being worked up at this time. Patient is undergoing a CAT scan and LP for further diagnostic studies today. Patient will follow-up with hematology/oncology in the outpatient setting for results. Patient continue to have lower extremity weakness with inability to walk and will need continued PT/OT therapy for strength and mobility. Currently patient's condition is stable and will be going to [facility] today. Guarded prognosis. On exam vital signs are stable. There is 98.1F, pulse is 76, respirations are 18, blood pressure is 154/85, oxygen saturation is 100% on 2 L via nasal cannula. Cardio S1, S2 are muffled. Respiratory system shows diminished breath sounds at the bases. Abdomen is soft and nontender. Nervous system shows mild diffuse weakness. Please refer to medication reconciliation sheet for a list of medications. Patient Condition at Discharge: Stable Plan - Discharge Summary Discharge Rx Participant: No New Discharge Prescriptions: New Docusate [Colace] 100 mg PO BID cap Bisacodyl [Dulcolax] 10 mg RECTAL DAILY PRN supp PRN Reason: Constipation Ipratropium-Albuterol Nebulize [Duoneb 0.5 mg-3 mg/3 ml Soln] 3 ml INHALATION RT-TID ml Ipratropium-Albuterol Nebulize [Duoneb 0.5 mg-3 mg/3 ml Soln] 3 ml INHALATION RT-TID PRN ml PRN Reason: Shortness Of Breath Or Wheezing Letrozole [Femara] 2.5 mg PO DAILY tab Nicotine 14Mg/24Hr Patch [Habitrol] 1 patch TRANSDERM DAILY patch HYDROcodone/APAP 5-325MG [[place] 5-325] 1 each PO Q6HR PRN #3 tab PRN Reason: Pain Calcium Acetate [PhosLo] 667 mg PO TID-W/MEALS tab Pantoprazole [Protonix] 40 mg PO AC-BRKFST tablet.dr Acetaminophen Tab [Tylenol] 650 mg PO Q6HR PRN tab PRN Reason: Mild Pain Or Fever > 100.5 ALPRAZolam [Xanax] 0.25 mg PO TID PRN #3 tab PRN Reason: Anxiety Dexamethasone 4 mg PO TID #26 tablet Continue Albuterol Inhaler [Ventolin Hfa Inhaler] 1 - 2 puff INHALATION RT-Q6H PRN PRN Reason: Dyspnea Discontinued Diclofenac Potassium [Cataflam] 50 mg PO BID Vortioxetine Hydrobromide [Trintellix] 5 mg PO QAM Aspirin [Adult Low Dose Aspirin EC] 81 mg PO DAILY PRN PRN Reason: Pain Discharge Medication List Albuterol Inhaler [Ventolin Hfa Inhaler] 1 - 2 puff INHALATION RT-Q6H PRN 08/26/19 [History] ALPRAZolam [Xanax] 0.25 mg PO TID PRN #3 tab 09/27/19 [Rx] Acetaminophen Tab [Tylenol] 650 mg PO Q6HR PRN tab 09/27/19 [Rx] Bisacodyl [Dulcolax] 10 mg RECTAL DAILY PRN supp 09/27/19 [Rx] Calcium Acetate [PhosLo] 667 mg PO TID-W/MEALS tab 09/27/19 [Rx] Dexamethasone 4 mg PO TID #26 tablet 09/27/19 [Rx] Docusate [Colace] 100 mg PO BID cap 09/27/19 [Rx] HYDROcodone/APAP 5-325MG [Cornwall 5-325] 1 each PO Q6HR PRN #3 tab 09/27/19 [Rx] Ipratropium-Albuterol Nebulize [Duoneb 0.5 mg-3 mg/3 ml Soln] 3 ml INHALATION RT-TID ml 09/27/19 [Rx] Ipratropium-Albuterol Nebulize [Duoneb 0.5 mg-3 mg/3 ml Soln] 3 ml INHALATION RT-TID PRN ml 09/27/19 [Rx] Letrozole [Femara] 2.5 mg PO DAILY tab 09/27/19 [Rx] Nicotine 14Mg/24Hr Patch [Habitrol] 1 patch TRANSDERM DAILY patch 09/27/19 [Rx] Pantoprazole [Protonix] 40 mg PO AC-BRKFST tablet. 09/27/19 [Rx] Follow up Appointment(s)/Referral(s): Antonieta Sotelo MD [Primary Care Provider] - 1-2 days Satish Qureshi MD [STAFF PHYSICIAN] - 2 Weeks Tim Hemphill MD [STAFF PHYSICIAN] - 09/30/19 3:00 pm [facility] Visiting Nurse, [NON-STAFF] - 1-2 Days Ambulatory/Diagnostic Orders: Basic Metabolic Panel [LAB.AMB] Time Frame: 3 Days, Location: None Selected Activity/Diet/Wound Care/Special Instructions: Patient is going to [facility] Activity as tolerated Continue current diet Follow-up with primary care provider upon discharge Follow Up with Dr. Qureshi as discussed and scheduled Continue working with physical therapy Follow-up with oncology as discussed and scheduled Continue with Dillard catheter until follow-up with urology Repeat labs in 2-3 days Discharge Disposition: TRANSFER TO SNF/ECF
--- NOTE | 2019-09-27 13:52 | CT ---
EXAMINATION TYPE: CT thor lumbar spine w con DATE OF EXAM: 09/27/2019 COMPARISON: 09/17/2019 HISTORY: Metastatic breast cancer staging. CT DLP: 1225.5 mGycm CONTRAST: CT scan of the lumbar is performed with IV Contrast, patient injected with 0 mL of Isovue 300. TECHNIQUE: CT of the lumbar spine is performed on a spiral scan at 3 mm thick sections. Reconstructed images are performed in the coronal and sagittal planes. FINDINGS: Thoracic spine: There is exaggeration of thoracic kyphosis. There is extensive lytic lesions througho ut the thoracic spine. There is narrowing of disc heights. Vertebral body height loss is not evident. Findings are stable from 09/17/2019. Lumbar spine: There is extensive lytic lesions throughout the lumbar spine. There is compression of t he superior endplate of L5 posteriorly. No posterior wall displacement is evident. This was present p reviously. There is a mild wedge deformity of L1 without posterior wall displacement present previous ly. Extensive lytic lesions are identified within the sacrum and bilateral medial iliac wings. Note is ma de of metastatic disease within the ribs. Small amount of the sternum within the [id number] are li kewise has metastatic disease. Note is made of bilateral pleural effusions with adjacent compressive atelectasis. IMPRESSION: 1. Stable metastatic lytic areas throughout the visualized osseous structures.
--- NOTE | 2019-09-27 15:10 | CT ---
EXAMINATION TYPE: CT ChestAbdPelvis w con DATE OF EXAM: 09/27/2019 INDICATION: Metastatic breast cancer staging. COMPARISON: None CT DLP: 591.8 mGycm CONTRAST: Performed with Oral Contrast and with IV Contrast, patient injected with 80 mL of Isovue 300. TECHNIQUE: Axial images at 5 mm thick sections. Reconstructed images in the coronal plane. Delayed images through the kidneys. FINDINGS: CT CHEST: Emphysematous changes are present compatible COPD. Small bilateral pleural effusions are pr esent. There is some compressive atelectasis adjacent. Portion of the thyroid visualized is normal. No enlarged mediastinal or hilar adenopathy is evident. The ascending aorta diameter at the level of the main pulmonary artery is 2.8 cm. The main pulmonary artery diameter at the bifurcation is 2.[address] ABDOMEN: Liver: Normal Spleen: Normal Pancreas: Normal Adrenal glands: The adrenal glands are normal. Gallbladder: Normal Kidneys: No masses are evident. No hydronephrosis is present. There are bilateral ureteral stents pr esent. No cysts are present. Delayed images were obtained through the kidneys, which remain unremark able. Aorta: Vascular calcification is within the aorta. Inferior vena cava: Normal. CT PELVIS: There is a large fecal bolus at the level the rectum. No dilated loops of bowel are evident. There ar e loops of bowel which are incompletely distended or lack oral contrast limiting their evaluation. Appendix: Not visualized. Urinary bladder: Normal. Distal ureteral stents are identified. There may be some thickening of the s uperior urinary bladder wall. Genitourinary structures: Uterus and ovaries are not identified. Small uterus over the urinary bladde r is not entirely excluded. Some wall thickening along the superior bladder wall is not excluded. Osseous structures: Extensive lytic lesions are present throughout the osseous structures. Severe inv olvement of all osseous structures visualized is present. This includes both axial and appendicular s [place]. IMPRESSIONS: 1. Extensive metastatic disease throughout all visualized osseous structures. 2. Some urinary bladder wall thickening along the superior margin is not excluded. 3. Small bilateral pleural effusions. 4. COPD.
--- NOTE | 2019-09-27 16:46 | P.PN ---
Subjective Progress Note Date: 09/27/19 Principal diagnosis: This is a 49-year-old female who was recently admitted with possible breast cancer with multiple metastases and is being closely monitored. Multiple medical consultations are following. Creatinine is slightly improved and is currently 2.9. Potassium was elevated at 6.0 and Kayexalate was ordered. Magnesium was 1.6 and being replaced. Repeat chest x-ray done today shows continued small to moderate effusions with prominent mid and lower lung atelectasis and/or consolidation with diffuse metastatic disease. Patient will be given a one-time dose of IV Lasix today. Case management and social work are following as the plan is for patient to go to [facility] once patient is stabilized and discharged. 09/22/2019 Patient is lying in bed currently receiving a massage of her lower extremities and is being closely monitored. Kayexalate was given an potassium continues to be 6.0 this morning. Patient given D5 and insulin and will check repeat potassium this evening. Patient denies any bowel movements. Magnesium was replaced and is currently 2.1. Patient's creatinine has worsened and is currently 3.47 with a BUN of 130. Multiple medical consultations are following. Patient's nasal cannula is on her forehead and patient is currently 95% on room air. Patient continues to have lower extremity weakness and states she is unable to walk. PT/OT is following. Patient was also started on Femara with oncology. 09/23/2019 This is a 49-year-old female who was recently admitted with possible breast cancer with multiple metastasis is being closely monitored. Patient has multiple medical issues and multiple medical consultations are following including oncology and nephrology. Urology has been consulted as patient has bilateral hydronephrosis and continues to have worsening creatinine. Today's creatinine is 3.49 with a BUN of 138. Potassium today is 5.3 and sodium continues to be low at 131. Patient continues to have an indwelling Dillard catheter and will continue at this time. Patient is having some abdominal discomfort and states that she has not had a bowel movement in a few days. Dulcolax by mouth and suppository have been ordered. 09/24/2019 In follow-up today patient is awaiting to have a cystoscopy with bilateral ureteral stent placement with urology today as her creatinine continues to elevate and is currently 4.07 with a BUN of 138. Potassium today is 5.5 and remaining on Kayexalate daily. Patient states that she had a bowel movement yesterday and abdominal discomfort has improved. Patient is quite anxious and hesitant about testing but is agreeable to the stent placement today. Currently patient denies any chest pain, shortness of breath, or palpitations. Patient is afebrile. Patient is nothing by mouth at this time for the procedure. Will continue to monitor closely. 09/27/2019 This is a 49-year-old female who was recently admitted with metastatic breast cancer and is being closely monitored at this time. Patient recently underwent ureteral stents bilaterally and creatinine has improved and is currently 1.19. Patient continues with the indwelling Dillard catheter at this time. Patient was scheduled to undergo an LP for diagnostic reasons and was unable to tolerate the supine position. Patient also underwent CT of the abdomen pelvis along with lumbar CT showing extensive metastatic disease throughout all visualized osseous structures along with some urinary bladder wall thickening and COPD. Case management and social work are following and working on discharge to [facility] and awaiting renewed authorization through the insurance for continued PT/OT therapy for strength and mobility as patient continues to have extreme weakness with inability to walk or stand for any length or period of time. Will continue to monitor closely. Objective - Vital Signs Vital signs: Vital Signs Temp 98.1 F 09/27/19 11:21 Pulse 80 09/27/19 13:42 Resp 18 09/27/19 11:21 BP 154/85 09/27/19 11:21 Pulse Ox 100 09/27/19 11:21 Intake & Output 09/26/19 09/27/19 09/27/19 18:59 06:59 18:59 Output Total 900 Balance -900 Weight 55.9 kg Output: Urine 900 Other: Voiding Method Indwelling Catheter Indwelling Catheter # Voids 1 3 1 # Bowel Movements 1 1 - Exam Gen: This is a 49-year-old female lying in bed, awake and alert 3. Temp is 98.1 F, pulse is 76, respirations are 18, blood pressure is 154/85, oxygen saturation is 100% % on 2 L via nasal cannula. HEENT: Head is atraumatic, normocephalic. Pupils equal, round. Sclerae is anicteric. NECK: Supple. No JVD. No lymphadenopathy. No thyromegaly. LUNGS: Breath sounds diminished at the bases with a few scattered rhonchi and no crackles noted. No intercostal retractions. HEART: S1, S2 are muffled ABDOMEN: Soft. Bowel sounds are present. No masses. No tenderness noted on palpation. EXTREMITIES: No pedal edema. No calf tenderness. NEUROLOGICAL: Patient is awake, alert and oriented x3. Cranial nerves 2 through 12 are grossly intact. - Labs CBC & Chem 7: 09/27/19 07:29 09/27/19 07:29 Labs: Abnormal Lab Results - Last 24 Hours (Table) 09/27/19 09/27/19 Range/Units 07:29 07:29 RBC 2.82 L (3.80-5.40) m/uL Hgb 8.1 L (11.4-16.0) gm/dL Hct 25.3 L (34.0-46.0) % RDW 17.0 H (11.5-15.5) % Lymphocytes # 0.8 L (1.0-4.8) k/uL Sodium 132 L (137-145) mmol/L BUN 53 H (7-17) mg/dL Creatinine 1.19 H (0.52-1.04) mg/dL Assessment and Plan Assessment: Acute severe anemia, present on admission, possibly multifactorial secondary to nutritional as well as secondary to malignancy was status post multiple transfusions. No evidence of any acute GI bleed Right breast cancer with ER/NH positive and HER-2 negative possibly with metastases Acute renal failure possibly multifactorial with acute tubular necrosis with prerenal acute renal failure and as well as postobstructive renal failure, status post bilateral ureteral stents Hyperkalemia secondary to renal failure Diffuse scattered metastasis and back pain and the computed tomography scan Urinary tract infection, present on admission Bilateral hydronephrosis status post ureteral stents Change in mental status, metabolic encephalopathy, acute, multifactorial History of EtOH abuse severe protein calorie malnutrition Hypothyroidism History of noncompliance history of depression History of nicotine dependence History of section Hyponatremia Anemia thrombocytopenia Elevated PTH Gait dysfunction Hyperkalemia Congestive heart failure with chronic systolic dysfunction ejection fraction 40- 50% Full code Recommendations and discussion: Recommend to continue current medications, management, and symptomatic treat ment. PT/OT following. Case management and social work are following this patient will be going to [facility] once authorization is reobtained as it today for continued PT/OT therapy. Due to multiple complex medical issues prognosis is guarded. Further recommendations to follow.
[2019-09-27] MEDS: LACTATED RINGERS 1,000 ML IV SCH (22:07)
[2019-09-28] MEDS: DEXAMETHASONE SOD PHOSPHATE 4 MG/ML 1 ML VIAL IV SCH ×2 (04:23→11:26)
[2019-09-28] MEDS: ALPRAZolam 0.25 MG TAB PO PRN (04:23)
[2019-09-28 04:32] VITALS: BP 121/67; TEMP 97.7
[2019-09-28] MEDS: ACETAMINOPHEN TAB 325 MG TAB PO PRN ×2 (06:03→11:06)
[2019-09-28] MEDS: IPRATROPIUM-ALBUTEROL 3 ML NEB INHALATION SCH ×2 (08:27→11:36)
[2019-09-28 08:31] VITALS: PULSE 88
[2019-09-28] MEDS: HEPARIN SODIUM,PORCINE 5,000 UNIT/ML 1 ML VIAL SQ SCH (09:04)
[2019-09-28] MEDS: DOCUSATE 100 MG CAP PO SCH (09:04)
[2019-09-28] MEDS: LETROZOLE 2.5 MG TAB PO SCH (09:04)
[2019-09-28] MEDS: PANTOPRAZOLE 40 MG TABLET PO SCH (09:04)
[2019-09-28] MEDS: CALCIUM ACETATE 667 MG TAB PO SCH ×2 (09:04→11:26)
[2019-09-28] MEDS: NICOTINE 14MG/24HR PATCH TRANSDERM SCH (09:05)
[2019-09-28 09:12] LABS: Calcium 8.9 mg/dL (8.4-10.2); Potassium 5.1 mmol/L (3.5-5.1)
[2019-09-28 09:38] LABS: Anisocytosis Slight; Basophils # (A) 0.1 k/uL (0-0.2); Basophils % (A) 2 %; Eosinophils % (A) 0 %; HCT 26.1 % (34.0-46.0); HGB 8.3 gm/dL (11.4-16.0); Hypochromasia Slight; Lymphocytes % (A) 18 %; MCH 28.9 pg (25.0-35.0); MCHC 31.8 g/dL (31.0-37.0); Mean Platelet Volume 8.1; Monocytes # (A) 0.2 k/uL (0-1.0); Monocytes % (A) 4 %; Neutrophils # (A) 4.2 k/uL (1.3-7.7); Neutrophils % (A) 73 %; Platelet Count 331 k/uL (150-450); RBC 2.87 m/uL (3.80-5.40); RDW 17.3 % (11.5-15.5); WBC 5.7 k/uL (3.8-10.6)
== END 2019-09-28 11:50 | DRG 987 ==
LOC: EC 14:54 → 2SICU 17:24 → 5NMEDONC 09-14 18:40
PROVIDERS: ADMIT Hospitalist; ATTEND Hospitalist
PROC: 30233N1 Transfusion of Nonautologous Red Blood Cells into Peripheral Vein, Percutaneous Approach (ICD-10-PCS; 2019-09-13)
PROC: 0HBT3ZX Excision of Right Breast, Percutaneous Approach, Diagnostic (ICD-10-PCS; 2019-09-15)
PROC: 0T788DZ Dilation of Bilateral Ureters with Intraluminal Device, Via Natural or Artificial Opening Endoscopic (ICD-10-PCS; principal; 2019-09-24 08:30)
PROC: BT141ZZ Fluoroscopy of Kidneys, Ureters and Bladder using Low Osmolar Contrast (ICD-10-PCS; principal; 2019-09-24 08:30)
DX: C50.011 Malignant neoplasm of nipple and areola, right female breast (principal); N17.0 Acute kidney failure with tubular necrosis; I50.23 Acute on chronic systolic (congestive) heart failure; G93.41 Metabolic encephalopathy; E43 Unspecified severe protein-calorie malnutrition; C79.51 Secondary malignant neoplasm of bone; D62 Acute posthemorrhagic anemia; Z68.1 Body mass index [BMI] 19.9 or less, adult; E87.1 Hypo-osmolality and hyponatremia; E87.2 Acidosis; R64 Cachexia; N13.6 Pyonephrosis; N25.81 Secondary hyperparathyroidism of renal origin; M41.9 Scoliosis, unspecified; R32 Unspecified urinary incontinence; J44.9 Chronic obstructive pulmonary disease, unspecified; Z17.0 Estrogen receptor positive status [ER+]; C50.912 Malignant neoplasm of unspecified site of left female breast; D63.0 Anemia in neoplastic disease; D53.9 Nutritional anemia, unspecified; D69.6 Thrombocytopenia, unspecified; E03.9 Hypothyroidism, unspecified; E83.42 Hypomagnesemia; E83.39 Other disorders of phosphorus metabolism; E86.0 Dehydration; E87.5 Hyperkalemia; F10.11 Alcohol abuse, in remission; F17.210 Nicotine dependence, cigarettes, uncomplicated; F41.8 Other specified anxiety disorders; K59.00 Constipation, unspecified; T38.0X5A Adverse effect of glucocorticoids and synthetic analogues, initial encounter; T39.395A Adverse effect of other nonsteroidal anti-inflammatory drugs [NSAID], initial encounter; Z53.20 Procedure and treatment not carried out because of patient's decision for unspecified reasons; Z59.0 Homelessness; Z63.4 Disappearance and death of family member; Z79.82 Long term (current) use of aspirin; Z79.899 Other long term (current) drug therapy; Z80.0 Family history of malignant neoplasm of digestive organs; Z80.3 Family history of malignant neoplasm of breast; Z87.440 Personal history of urinary (tract) infections; Z91.19 Patient's noncompliance with other medical treatment and regimen; Z98.891 History of uterine scar from previous surgery; R26.9 Unspecified abnormalities of gait and mobility; Z86.718 Personal history of other venous thrombosis and embolism; R15.9 Full incontinence of feces
CPT/HCPCS: 36415; 36430; 70450; 71045; 71046; 71250; 71260; 72128; 72129; 72131; 72132; 72141; 74176; 74177; 76770; 78306; 80048; 80053; 81001; 82272; 82306; 82670; 82728; 83001; 83002; 83540; 83550; 83605; 83735; 83883; 83970; 84100; 84132; 84165; 84439; 84443; 84484; 85025; 85610; 85730; 86300; 86334; 86850; 86900; 86901; 86920; 87040; 87086; 87502; 88305; 88341; 88342; 93005; 93306; 94640; 94644; 94760; 96361; 96374; 96375; 99291